=== PATIENT | male | born 1955 | race Caucasian/White ===

== ENCOUNTER 2021-06-06 10:33 | Emergency (ER) | payer OTHER, SELFPAY ==
[2021-06-06 10:53] VITALS: BP 209/114; PULSE 60; RESP 16; TEMP 36.3; O2SAT 99
--- NOTE | 2021-06-06 11:46 | ED.SKABFB ---
HPI - Skin/Abscess/Foreign Bdy General Chief complaint: Skin/Abscess/Foreign Body Stated complaint: Staple Removal Time Seen by Provider: 06/06/21 11:46 Source: patient Mode of arrival: ambulatory Limitations: no limitations History of Present Illness HPI narrative: Rony Ferrari is a 65-year-old male who is here for suture removal to the top of the head; he fell 11 days ago and needs the anne removed Related Data Home Medications Medication Instructions Recorded Confirmed atorvastatin 06/06/21 carvedilol 06/06/21 lisinopril 06/06/21 nifedipine PO 06/06/21 Allergies Allergy/AdvReac Type Severity Reaction Status Date / Time No Known Allergies Allergy Unverified 06/23/18 20:21 Review of Systems Review of Systems: CONSTITUTIONAL: Denies fever, chills, sweats. EYES: Denies visual changes, redness, discharge. ENT: Denies rhinorrhea, congestion, sore throat, otalgia. CARDIOVASCULAR: Denies chest pain, palpitations, edema. RESPIRATORY: Denies dyspnea, wheezing, cough GASTROINTESTINAL: Denies abdominal pain, nausea, vomiting, diarrhea. GENITOURINARY: Denies dysuria, hematuria, abnormal discharge SKIN: Denies rash or itching. Needs anne removed from top of head on right NEUROLOGIC: Denies numbness, or focal weakness. PSYCHIATRIC: Denies anxiety or depression. PMFSH Past Medical History Medical History CKD (chronic kidney disease) stage V requiring chronic dialysis Hypertension Family History Family History Mother Hypertension Social History Social History (Updated 06/06/21 @ 11:58 by Estefany Olvera CNP) Smoking packs per day: 1.0 Smoking cigarettes per day: 20.0 Smoking status: Current every day smoker Tobacco type: cigarettes Alcohol intake: former Comments At time of signature, I agree with nursing past medical, surgical, social and family history. There is no relevant family history pertinent to the presenting complaint. Exam Narrative: GENERAL: This is a well-nourished, well-developed patient, not in distress. HEAD: normocephalic, atraumatic. EYES:Sclera clear/white. Vision is grossly intact. EARS: External ears normal, Hearing grossly intact. NOSE: External nose normal without nasal discharge, nares without redness, no rhinorrhea. THROAT: Mucous membranes moist, NECK: Neck supple, CARDIOVASCULAR: Regular rate and rhythm without murmurs, gallops, or rubs. RESPIRATORY: Clear to auscultation. Breath sounds equal bilaterally. No wheezes, rales, or rhonchi. GASTROINTESTINAL: Abdomen soft, SKIN: warm, intact with bruising to bilateral arms, is doing peritoneal dialysis and has catheter in abdomen NEURO: awake, alert, and oriented to person, place and time. There were no obvious focal neurologic abnormalities. Steady gait EXTREMITIES: Normal range of motion. BACK: Nontender without deformity Course Course Emergency Course: Here for removal of sutures from head Laceration well approximated Follow-up with primary care physician for elevated blood pressure Vital Signs Vital signs: Vital Signs Temperature 97.4 F L 06/06/21 10:53 Pulse Rate 60 06/06/21 10:53 Respiratory Rate 16 06/06/21 10:53 Blood Pressure 209/114 H 06/06/21 10:53 Pulse Oximetry 99 06/06/21 10:53 Temperature 97.4 F L 06/06/21 10:53 Pulse Rate 60 06/06/21 10:53 Respiratory Rate 16 06/06/21 10:53 Blood Pressure 209/114 H 06/06/21 10:53 Pulse Oximetry 99 06/06/21 10:53 Procedures Other Procedure Procedure 1: Other Procedure: 3 anne removed from the right side of scalp, area well-healed and edges well approximated MDM - Skin/Abscess/Foreign Bdy Differential Diagnosis Differential diagnosis: Likely cellulitis and other (Well approximated healed laceration) Critical Care Time Critical Care Time Critical Care Time: No Discharge Plan Discharge
--- NOTE | 2021-06-06 11:57 | PC.NURSE ---
manual B/P left arm 168/92
== END 2021-06-06 12:25 | disposition home or self-care (01) ==
PROVIDERS: Emergency Provider Nurse Practitioner; PCP Family Medicine
DX: S01.01XD Laceration without foreign body of scalp, subsequent encounter (principal); W19.XXXD Unspecified fall, subsequent encounter
CPT/HCPCS: 99211; G0463

== ENCOUNTER 2022-01-15 01:12 | Day surgery (SDC) | payer OTHER, MEDICARE, SELFPAY ==
[2022-01-06 14:36] VITALS: BMI 23.1
[2022-01-15 09:39] VITALS: BP 175/77; PULSE 72; RESP 20; TEMP 36.6; O2SAT 100
[2022-01-15] MEDS: SODIUM CHLORIDE 0.9% IV 500 ML 150 ML IV CONT (09:49)
--- NOTE | 2022-01-15 09:52 | WPDANESEPPF ---
Anes - Initial Pre Proc Eval Procedure: Operation Date: 01/15/22 10:45 Proposed Procedures p Screening Colonoscopy - Sanjeev Dumont MD Date/Time: 01/15/22 09:52 Surgeon: Sanjeev Dumont MD Pre Op Diagnosis: neoplasm screening Patient Data Age: 66 Gender: M Height: 1.68 m Weight: 64.8 kg Last Vital Signs Temp 36.6 C 01/15/22 09:39 Pulse 72 01/15/22 09:39 Resp 20 01/15/22 09:39 BP 175/77 H 01/15/22 09:39 Pulse Ox 100 01/15/22 09:39 Allergies Allergy/AdvReac Type Severity Reaction Status Date / Time No Known Allergies Allergy Unverified 01/15/22 09:32 Home Medications Medication Instructions Recorded Confirmed Type atorvastatin 20 mg PO DAILY 06/06/21 01/06/22 History carvedilol 25 mg PO BID 06/06/21 01/06/22 History nifedipine 60 mg PO HS 06/06/21 01/06/22 History ascorbic acid (vitamin C) [Vitamin 250 mg PO DAILY 01/06/22 01/06/22 History C] aspirin [Adult Aspirin] 81 mg PO DAILY 01/06/22 01/06/22 History cholecalciferol (vitamin D3) 125 mcg PO DAILY 01/06/22 01/06/22 History [Vitamin D3] zinc 50 mg PO DAILY 01/06/22 01/06/22 History Patient hx anesthesia problems: none Family hx anesthesia problems: none Results Review: All pre-operative results and documents have been reviewed as part of the pre-operative evaluation. [facility] Past Medical History Medical History CKD (chronic kidney disease) stage V requiring chronic dialysis COPD (chronic obstructive pulmonary disease) Hypertension Tobacco abuse Family History Family History Mother Hypertension Social History Social History Smoking packs per day: 1.0 Smoking cigarettes per day: 20.0 Smoking status: Current every day smoker Tobacco type: cigarettes Alcohol intake: never Substance use: never Living arrangements: alone Spiritual care concerns: No Anes - Eval Final PreProcedure Day of Procedure 01/15/22 09:52 Patient weight: normal Heart: regular rate and rhythm Lungs: decreased breath sounds Airway: Mallampati scale class II Neurological: alert and oriented Last oral intake: >/= 8 hours ASA classification: IV Emergent: no Anesthetic plan: proceed Anesthesia type and monitoring: general GIVS and standard monitoring Results Review: All pre-operative results and documents have been reviewed as part of the pre-operative evaluation. Informed Consent: The patient's anesthetic plan and its attendant risks and benefits were discussed with the patient/family/POA. Questions were solicited and answers provided to the satisfaction of the patient/family/POA.
--- NOTE | 2022-01-15 10:48 | PM.HPGS ---
History of Present Illness History of Present Illness Consent: Risks, benefits, and alternatives have been discussed and questions answered. Patient agrees to proceed with procedure. Chief complaint: neoplasm screening Narrative: Rony Ferrari is a 66 year old male here for first screening colonoscopy Review of Systems Constitutional: Constitutional: Denies headache(s) and Denies weakness Eyes: Eyes: Denies blurry vision ENT: Reports Normal hearing present, Denies headache(s) and Denies neck pain Cardiovascular: Cardiovascular: Denies chest pain and Denies dyspnea Respiratory: Respiratory: Denies dyspnea Gastrointestinal: Gastrointestinal: Reports no additional gastrointestinal complaints Genitourinary: Genitourinary: Denies dysuria Musculoskeletal: Musculoskeletal: Denies neck pain Integumentary/Breasts: Skin/Breast: Denies dry skin Neurologic: Reports Normal hearing present, Denies headache(s) and Denies weakness Psychiatric: Psychiatric: Denies anxiety Endocrine: Endocrine: Denies change in body appearance Hematologic/Lymphatic: Hematologic/Lymphatic: Denies easy bleeding Allergic/Immunologic: Allergic/Immunologic: Denies urticaria [facility] Past Medical History Medical History (Updated 01/15/22 @ 10:49 by Sanjeev Dumont MD) CKD (chronic kidney disease) stage V requiring chronic dialysis Colon cancer screening COPD (chronic obstructive pulmonary disease) Hypertension Tobacco abuse Family History Family History Mother Hypertension Social History Social History Smoking packs per day: 1.0 Smoking cigarettes per day: 20.0 Smoking status: Current every day smoker Tobacco type: cigarettes Alcohol intake: never Substance use: never Living arrangements: alone Spiritual care concerns: No Meds Home Medications and Allergies Home Medications Medication Instructions Recorded Confirmed Type atorvastatin 20 mg PO DAILY 06/06/21 01/06/22 History carvedilol 25 mg PO BID 06/06/21 01/06/22 History nifedipine 60 mg PO HS 06/06/21 01/06/22 History ascorbic acid (vitamin C) [Vitamin 250 mg PO DAILY 01/06/22 01/06/22 History C] aspirin [Adult Aspirin] 81 mg PO DAILY 01/06/22 01/06/22 History cholecalciferol (vitamin D3) 125 mcg PO DAILY 01/06/22 01/06/22 History [Vitamin D3] zinc 50 mg PO DAILY 01/06/22 01/06/22 History Allergies Allergy/AdvReac Type Severity Reaction Status Date / Time No Known Allergies Allergy Unverified 01/15/22 09:32 Vital Signs Vital Signs - 24 hr 01/15/22 09:39 Temperature 97.8 F Pulse Rate 72 Respiratory Rate 20 Blood Pressure 175/77 H Pulse Oximetry 100 Exam Const: General: comfortable and no acute distress HENMT: General nose exam: Normal nares present Eyes: General: appearance normal, both eyes and all related structures Neck: Neck: no JVD Resp: Auscultation: clear to auscultation bilaterally Cardio: Rate: regular rate Rhythm: regular rhythm GI: Inspection: non-distended GI Palp: Yes Soft to palpation Skin: General skin exam: normal color Neuro: General: gait normal Speech: normal speech Extrem: General: normal to inspection Psych: Mental Status: mental status grossly normal Assessment and Plan Assessment and plan (1) Colon cancer screening: Code(s): Z12.11 - Encounter for screening for malignant neoplasm of colon Status: Acute Assessment and Plan: colonoscopy
[2022-01-15 11:18] VITALS: BP 85/53; PULSE 60; RESP 20; O2SAT 99
[2022-01-15 11:28] VITALS: BP 121/78; PULSE 66; RESP 21; O2SAT 97
[2022-01-15 11:38] VITALS: BP 157/85; PULSE 76; RESP 25; O2SAT 100
== END 2022-01-15 11:55 | disposition home or self-care (01) ==
PROVIDERS: Visit Provider Internal Medicine Gastroenterology
PROC: 0DJD8ZZ Inspection of Lower Intestinal Tract, Via Natural or Artificial Opening Endoscopic (ICD-10-PCS; CPT 45378; principal; 2022-01-15 10:45)
DX: Z12.11 Encounter for screening for malignant neoplasm of colon (principal); K63.5 Polyp of colon; D12.3 Benign neoplasm of transverse colon; I12.0 Hypertensive chronic kidney disease with stage 5 chronic kidney disease or end stage renal disease; Z99.2 Dependence on renal dialysis; N18.5 Chronic kidney disease, stage 5; J44.9 Chronic obstructive pulmonary disease, unspecified; K57.30 Diverticulosis of large intestine without perforation or abscess without bleeding; K64.8 Other hemorrhoids; F17.210 Nicotine dependence, cigarettes, uncomplicated
CPT/HCPCS: 45385; 88305; J2704; J7040

== ENCOUNTER 2022-08-14 10:18 | Inpatient (IN) | payer OTHER, MEDICARE, SELFPAY ==
[2022-08-14] VITALS (27 sets, daily range): BP systolic 117–242; BP diastolic 74–133; PULSE 90–126; RESP 13–32; TEMP 36.3–37; O2SAT 95–100; BMI 21.4
--- NOTE | ~2022-08-14 | US_ITS ---
EXAMINATION: US abdomen limited DATE: 08/21/2022 14:17 INDICATION: Abnormal liver function tests. TECHNIQUE: Multiple grayscale and Doppler ultrasound images of the abdomen were obtained. COMPARISON: CT 08/19/2022 FINDINGS: The pancreas is obscured by bowel gas. The liver is normal without focal lesion. There is n ormal flow in main portal vein. The gallbladder is normal in size. No gallstones. Gallbladder wall th ickening is seen, likely interstitial edema. There is no sonographic Ramos sign. The common duct is normal and measures 2 mm. There is a small volume of perihepatic ascites. IMPRESSION: 1. Small volume of perihepatic ascites. Reviewed, dictated and finalized at location A. TRIC FURNACE OPERATOR
--- NOTE | ~2022-08-14 | CT_ITS ---
EXAMINATION: CT brain wo con DATE: 08/16/2022 09:46 INDICATION: Right-sided flaccidity and weakness TECHNIQUE: Computed tomography (CT) of the head was performed without intravenous contrast. The mA wa s adjusted according to patient size. Iterative reconstruction technique was employed. Exam dose: 60 5.33 mGy-cm total exam DLP. COMPARISON: 08/2022 MR brain/brainstem 08/14/2022 CT brain FINDINGS: Bilateral vertebral artery, basilar artery and prominent bilateral carotid siphon and supra clinoid internal carotid artery calcifications. There is nonspecific diminished attenuation of the cerebral white matter, likely due to chronic small vessel ischemic changes. No intracranial mass lesion or hemorrhage or recent cerebrovascular accident is detected. CT is not s ensitive for detection of hyperacute cerebrovascular accident. No subdural or epidural hematoma is detected. There is moderate cerebral volume loss. No orbital mass lesion. Mild polypoid soft tissue thickening of the maxillary sinuses. There is mild patchy ethmoid sinus sof t tissue thickening and mild echograms thickening of the right sphenoid sinus. The mastoid air cells are normally developed and aerated. No fracture or bone destruction of the cranial vault. IMPRESSION: Cerebral atherosclerosis and chronic small vessel ischemic changes of the cerebral white matter No intracranial mass lesion or hemorrhage, midline shift or mass effect effect Moderate cerebral volume loss Reviewed, dictated and finalized at Location A. Reviewed, dictated and finalized at location A.
--- NOTE | ~2022-08-14 | CT_ITS ---
EXAMINATION: CT abdomen pelvis w con DATE: 08/14/2022 11:49 INDICATION: 5 days of abdominal pain TECHNIQUE: Computed tomography (CT) of the abdomen and pelvis was performed with 100 mL Omnipaque-350 intravenous contrast. Automated exposure control and iterative reconstruction technique were employe d. The dose-length product was 424.27 mGy-cm. COMPARISON: None FINDINGS: Mild elevation the left hemidiaphragm with left basilar compressive atelectasis. Heart size is normal . Atherosclerotic coronary artery calcification is. No pericardial or pleural effusion. Moderate amou nt of ascites scattered throughout the abdomen and pelvis which may be related to peritoneal dialysis with peritoneal dialysis catheter entering the abdominal wall slightly superior and to the right of the umbilicus and with distal tip coiled in the left lower quadrant. Liver, gallbladder, spleen, panc reas and bilateral adrenal glands are normal. Moderate to severe left renal atrophy. Mild atrophy and scattered cortical scarring at the right kidney. No bowel obstruction. Normal appendix. There is norm cified atherosclerosis of the aorta and many of the other arteries. Bladder is normal. Small fat-cont aining left inguinal hernia. No pathologically enlarged abdominal or pelvic lymphadenopathy. Mild tho racolumbar levocurvature with severe lumbar and lower thoracic spondylosis. IMPRESSION: 1. Small to moderate amount of ascites in the abdomen and pelvis likely related to peritoneal dialysi s. 2. No acute intra-abdominal/pelvic process. 3. Moderate to severe left and mild right renal atrophy. Reviewed, dictated and finalized at location B. IMPRESSION: 1. Small to moderate amount of ascites in the abdomen and pelvis likely related to peritoneal dialysis. 2. No acute intra-abdominal/pelvic process. 3. Moderate to severe left and mild right renal atrophy.
--- NOTE | ~2022-08-14 | CT_ITS ---
EXAMINATION: CT brain wo con DATE: 08/14/2022 11:47 INDICATION: Right hemiparesis. TECHNIQUE: Computed tomography (CT) of the head was performed without intravenous contrast. The mA wa s adjusted according to patient size. Iterative reconstruction technique was employed. The dose-lengt h product was 605.33 mGy-cm. COMPARISON: Head CT 06/23/2018, brain MRI 06/24/2018 FINDINGS: There are scattered areas of low attenuation in the cerebral white matter. There is an old lacunar infarct in right caudate nucleus. There is no intracranial hemorrhage, acute infarction, or a bnormal intracranial mass lesion. The ventricles are normal in size. There is mild mucosal thickening in the paranasal sinuses. The orbits are normal. The mastoid air cells are normal. IMPRESSION: 1. Old lacunar infarct in right caudate nucleus. 2. Stable moderate nonspecific cerebral white matter disease, which likely represents chronic small v essel ischemic disease. Reviewed, dictated and finalized at location A. IMPRESSION: 1. Old lacunar infarct in right caudate nucleus. 2. Stable moderate nonspecific cerebral white matter disease, which likely repr esents chronic small vessel ischemic disease.
--- NOTE | ~2022-08-14 | XR_ITS ---
XR chest 2V 08/14/2022 12:10 Indication: Weakness and dyspnea Procedure: 2 view chest Comparison: No prior studies for comparison. Findings: Bilateral lower lobe atelectasis. No pleural effusion. No pneumothorax. No acute osseous ab normality. Impression: 1: Bilateral lower lobe atelectasis. Shallow inspiration. Reviewed, dictated and finalized at location A. Impression: 1: Bilateral lower lobe atelectasis. Shallow inspiration.
--- NOTE | ~2022-08-14 | XR_ITS ---
EXAMINATION: XR chest 1V portable DATE: 08/20/2022 06:09 INDICATION: Respiratory failure. Severe sepsis. TECHNIQUE: frontal and lateral views of the chest were obtained. COMPARISON: Chest radiograph and CT dated 08/19/2022 FINDINGS: Endotracheal tube tip 2.1 cm above the shayy. Nasogastric tube tip in proximal side port in the body of the stomach. Right internal jugular central venous catheter with distal tip in the midsuperior ve na cava. Mild elevation of left hemidiaphragm. Opacities at the left lower lung zone with blunting of the left costophrenic angle which on CT appears more consistent with atelectasis than pneumonia. There is als o some mild right basilar atelectasis. No pneumothorax or pleural effusion. Heart size is normal. IMPRESSION: 1. Opacities in the bilateral lower lung zones, left greater than right and favor atelectasis over pn eumonia. Reviewed, dictated and finalized at location A. PART RASPER IMPRESSION: 1. Opacities in the bilateral lower lung zones, left greater than right and fav or atelectasis over pneumonia.
--- NOTE | ~2022-08-14 | XR_ITS ---
XR chest 1V portable DATE: 08/16/2022 06:24 INDICATION: Central line placement TECHNIQUE: Portable AP chest on at 0 5 mm COMPARISON: Portable AP chest on 08/16/2022 0405 hours FINDINGS: ET tube approximately 2 cm above shayy in satisfactory position. NG tube in gastric fundus . Introduction of right internal jugular central venous catheter, tip overlying superior vena cava. No pneumothorax. Patchy left lower lobe infiltrate and/atelectasis. There is mild infiltrate or atelectasis in the med ial right lung base. Persistent gaseous distention of small and large bowel. Osteopenia. IMPRESSION: Introduction of right internal jugular central venous catheter, tip overlying superior ve na cava; no pneumothorax Bilateral lower lobe infiltrate and/atelectasis, left greater than right Reviewed, dictated and finalized at location A. IMPRESSION: Introduction of right internal jugular central venous catheter, tip overlying superior vena cava; no pneumothorax Bilateral lower lobe infiltrate and/atelectasis, left greater than right
--- NOTE | ~2022-08-14 | XR_ITS ---
EXAMINATION: XR chest 1V portable DATE: 08/19/2022 06:15 INDICATION: Respiratory failure. Severe sepsis. TECHNIQUE: frontal view of the chest was obtained. COMPARISON: Chest radiograph dated 08/18/2022 FINDINGS: Endotracheal tube tip 2.1 cm above the shayy. Nasogastric tube coiled in the stomach. Right internal jugular central venous catheter tip in the midsuperior vena cava. Lung lungs remain small. Mild bibasilar opacities with interval improvement on the left. No pleural e ffusion or pneumothorax. The cardiomediastinal silhouette is normal. IMPRESSION: 1. Mild bibasilar opacities with interval improvement on the left which could represent atelectasis o r pneumonia Reviewed, dictated and finalized at location A. ING INSPECTOR IMPRESSION: 1. Mild bibasilar opacities with interval improvement on the left which could r epresent atelectasis or pneumonia
--- NOTE | ~2022-08-14 | CT_ITS ---
EXAMINATION: CT soft tissue neck wo con DATE: 08/15/2022 16:23 INDICATION: Possible thrombosis of the left carotid artery. TECHNIQUE: Computed tomography (CT) of the neck was performed with 75 mL Omnipaque-350 intravenous co ntrast. Automated exposure control and iterative reconstruction technique were employed. The dose-dayana gth product was 500.71 mGy-cm. COMPARISON: Cervical spine CT dated 08/14/2022 FINDINGS: There is extensive atherosclerotic calcification at the aortic arch, great vessels arising from the a rch and extending cephalad along the bilateral carotid arteries including at the carotid bulbs. Unabl e to assess for thrombosis/patency of the arteries on noncontrast imaging. The degree of calcificatio n at the bilateral carotid bulbs appears likely hemodynamically significant. Additional atherosclerot ic calcifications at the bilateral carotid siphons. The bilateral parotid, submandibular and thyroid gland appear normal. No pathologically enlarged cervical or superior mediastinal lymphadenopathy. Mil d dependent atelectasis in the bilateral upper lobes. Severe cervical spondylosis. Mucous retention c yst in the bilateral maxillary sinuses.. IMPRESSION: 1. Extensive atherosclerotic calcifications including potentially hemodynamically significant calcifi c a cyst at the bilateral carotid bulbs. Unable to assess for thrombosis or patency of the vessels in the absence of intravascular contrast. Consider correlation either with carotid CT angiogram or bernard tid ultrasound. Reviewed, dictated and finalized at location B. IMPRESSION: 1. Extensive atherosclerotic calcifications including potentially hemodynamical ly significant calcific a cyst at the bilateral carotid bulbs. Unable to assess for thrombosis or patency of the vessels in the absence of intravascular contr ast. Consider correlation either with carotid CT angiogram or carotid ultrasoun d.
--- NOTE | ~2022-08-14 | XR_ITS ---
EXAMINATION: XR chest 1V portable INDICATION: Respiratory failure TECHNIQUE: Portable AP chest at 0530 hours COMPARISON: 08/23/2022 FINDINGS: The endotracheal tube ends approximately 3.5 cm above the shayy. The nasogastric tube is i n the stomach. A left right internal jugular central venous catheter ends in the midsuperior vena cav a. Left basilar atelectasis continues to improve. No pleural effusion or pneumothorax. The cardiomedi astinal silhouette is normal. IMPRESSION: 1. Left basilar atelectasis with continued improvement. Reviewed, dictated and finalized at location A. Y STARCH MOLD PRINTER
--- NOTE | ~2022-08-14 | XR_ITS ---
XR chest 1V portable DATE: 08/16/2022 04:12 INDICATION: Reintubation TECHNIQUE: Portable AP chest on 08/16/2022 at 0405 hours COMPARISON: 08/16/2022 portable AP chest at 0115 hours FINDINGS: ET tube tip currently approximately 1 cm above shayy. NG tube in gastric fundus. Patchy left lower lobe infiltrate and/atelectasis. IMPRESSION: ET tube 1 cm above shayy; ideal range is to have a 5 cm NG tube in gastric fundus Left lower lobe infiltrate and/atelectasis Reviewed, dictated and finalized at location A.
--- NOTE | ~2022-08-14 | XR_ITS ---
EXAMINATION: XR abdomen NG/feed tube insert DATE: 08/20/2022 15:01 INDICATION: Nasogastric tube insertion. TECHNIQUE: A supine view of the abdomen was obtained. COMPARISON: Abdomen radiograph 08/16/2022 FINDINGS: The lower abdomen and right lateral aspect of the abdomen were excluded. The nasogastric tu be tip is in the stomach. IMPRESSION: 1. Nasogastric tube tip in the stomach. Reviewed, dictated and finalized at location A. ENDER MAKER
--- NOTE | ~2022-08-14 | XR_ITS ---
XR abdomen/kub 1V DATE: 08/16/2022 00:35 INDICATION: Abdominal distention TECHNIQUE: 2 portable supine AP views COMPARISON: 09/10/2022 CT abdomen pelvis FINDINGS: A peritoneal dialysis catheter is noted. Radiopaque contrast material is noted in the urinary bladder. There is extensive callus throughout the small and large bowel, without significant abnormal dilatati on.. Abdominal aortic and iliac arterial calcifications. Multilevel degenerative disc disease and mild levoscoliosis of the lumbar spine. Osteopenia. IMPRESSION: Extensive gas throughout the small and large bowel without apparent obstruction Peritoneal dialysis catheter Reviewed, dictated and finalized at Location A. Reviewed, dictated and finalized at location A.
--- NOTE | ~2022-08-14 | XR_ITS ---
EXAMINATION: XR chest 1V portable INDICATION: Respiratory failure TECHNIQUE: Portable AP chest at 0526 hours COMPARISON: 08/20/2022 FINDINGS: The endotracheal tube ends approximately 3.3 cm above the shayy. The nasogastric tube is i n the stomach. A right internal jugular central venous catheter ends with its tip in the superior latonya a cava. There is mild atelectasis of the left lung base with slight improvement. No pleural effusion or pneumothorax. The cardiomediastinal silhouette is normal. IMPRESSION: 1. Mild atelectasis of the left lung base with improvement. Reviewed, dictated and finalized at location B. CHILL TECHNICIAN
--- NOTE | ~2022-08-14 | XR_ITS ---
EXAMINATION: XR chest 1V portable DATE: 08/26/2022 05:50 INDICATION: Respiratory failure. TECHNIQUE: A single frontal view of the chest was obtained. COMPARISON: Chest single view 08/25/2022 FINDINGS: There is mild elevation of left hemidiaphragm. There are airspace opacities in the lower juan antonio ng zones. No pleural effusion or pneumothorax. The heart size is normal. The endotracheal tube tip is 7.0 cm above the shayy. The nasogastric tube tip is in the stomach. IMPRESSION: 1. Worsened airspace opacities in the lower lung zones, consistent with atelectasis versus pneumonia. Reviewed, dictated and finalized at location A. INSPECTOR IMPRESSION: 1. Worsened airspace opacities in the lower lung zones, consistent with atelect asis versus pneumonia.
--- NOTE | ~2022-08-14 | XR_ITS ---
EXAMINATION: XR chest 1V portable DATE: 08/25/2022 05:56 INDICATION: Respiratory failure. TECHNIQUE: A single frontal view of the chest was obtained. COMPARISON: Chest single view 08/24/2022, chest CT 08/24/2022 FINDINGS: There is mild atelectasis at left lung base. No pleural effusion or pneumothorax. The heart size is normal. The endotracheal tube tip is 3.7 cm above the shayy. A right internal jugular centr al venous catheter is seen with tip in the superior vena cava. The nasogastric tube tip is in the sto mach. IMPRESSION: 1. Mild atelectasis at left lung base. Reviewed, dictated and finalized at location A. UCTION SUPERINTENDENT HYDRO
--- NOTE | ~2022-08-14 | XR_ITS ---
XR chest 1V portable DATE: 08/16/2022 00:36 INDICATION: Unresponsive. Low oxygenation. Respiratory distress TECHNIQUE: Portable upright AP chest on 08/16/2022 at 0029 hours COMPARISON: 08/14/2022 2 view chest FINDINGS: Heart size appears normal. Aortic calcification and unfolding. Mild infiltrate or atelectasis in the left lower lobe. The lungs otherwise appear clear. No pleural e ffusion or pulmonary vascular congestion or pneumothorax. There is extensive gas in the small and large bowel. IMPRESSION: Mild left lower lobe infiltrate or atelectasis Reviewed, dictated and finalized at location A.
--- NOTE | ~2022-08-14 | MR_ITS ---
EXAMINATION: MR brain/brain stem wo con DATE: 08/15/2022 14:38 INDICATION: Right hemiparesis. TECHNIQUE: Magnetic resonance imaging (MRI) of the brain and brainstem was performed without intraven ous contrast. COMPARISON: Brain MRI 06/24/2018, head CT 08/14/2022 FINDINGS: There are scattered small acute infarcts involving the bilateral frontal and parietal lobes . There is no intracranial hemorrhage or abnormal mass lesion. There are scattered areas of nonspecif ic increased T2-weighted signal intensity in the cerebral white matter. The ventricles are normal in size. There is mild mucosal thickening in the paranasal sinuses. The orbits are normal. The mastoid a ir cells are normal. There is loss of the normal left internal carotid artery flow void. IMPRESSION: 1. Scattered small acute infarcts involving the bilateral frontal and parietal lobes. 2. Mild nonspecific cerebral white matter disease, which likely represents chronic small vessel ische rinku disease. 3. Loss of the normal flow void in the left internal carotid artery suggesting slow flow or thrombosi s. Consider neck CTA. Reviewed, dictated and finalized at location A. IMPRESSION: 1. Scattered small acute infarcts involving the bilateral frontal and parietal lobes. 2. Mild nonspecific cerebral white matter disease, which likely represents tax adjuster juliet small vessel ischemic disease. 3. Loss of the normal flow void in the left internal carotid artery suggesting slow flow or thrombosis. Consider neck CTA.
--- NOTE | ~2022-08-14 | XR_ITS ---
EXAMINATION: XR chest ET placement DATE: 08/20/2022 15:01 INDICATION: Endotracheal tube adjustment. TECHNIQUE: A single frontal view of the chest was obtained. COMPARISON: Chest single view at 5:26 AM, chest CT 08/19/2022 FINDINGS: There is mild atelectasis at left lung base. No pleural effusion or pneumothorax. The heart size is normal. The endotracheal tube tip is 1.7 cm above the shayy. A right internal jugular centr al venous catheter is seen with tip in the superior vena cava. The nasogastric tube tip is in the sto mach. IMPRESSION: 1. Mild atelectasis at left lung base. Reviewed, dictated and finalized at location A. ASS ANALYST
--- NOTE | ~2022-08-14 | XR_ITS ---
EXAMINATION: XR chest 1V portable INDICATION: Respiratory failure TECHNIQUE: Portable AP chest at 0534 hours COMPARISON: 08/22/2022 FINDINGS: The endotracheal tube has been advanced and now ends approximately 5.2 cm above the shayy. A nasogastric tube is in the stomach. A right internal jugular central venous catheter ends with its tip in the mid superior vena cava. There is persistent but improved atelectasis of the left lung bas e. No pleural effusion or pneumothorax. The cardiomediastinal silhouette is normal. IMPRESSION: 1. Improving left basilar atelectasis. 2. Endotracheal tube advanced. Reviewed, dictated and finalized at location A. T ANALYST
--- NOTE | ~2022-08-14 | XR_ITS ---
EXAMINATION: XR chest 1V portable INDICATION: Respiratory failure TECHNIQUE: Portable AP chest at 1005 hours COMPARISON: 08/21/2022 FINDINGS: The endotracheal tube ends approximately 8.9 cm above the shayy at the thoracic inlet. The nasogastric tube is in the stomach. A right internal jugular central venous catheter ends with its t ip in the superior vena cava. There is unchanged mild atelectasis of the left lung base. No pleural e ffusion or pneumothorax. The cardiomediastinal silhouette is normal. IMPRESSION: 1. Left basilar atelectasis without significant change. 2. Endotracheal tube now approximately 8.9 cm above the shayy at the thoracic inlet. Reviewed, dictated and finalized at location B. LINE OPERATOR
--- NOTE | ~2022-08-14 | CT_ITS ---
EXAMINATION: CT cervical spine wo con DATE: 08/14/2022 19:00 INDICATION: Right facial droop, right-sided weakness, left arm numbness TECHNIQUE: Computed tomography (CT) of the cervical spine was performed without intravenous contrast. Automated exposure control and iterative reconstruction technique were employed. Exam dose: 453.70 mGy-cm total exam DLP. COMPARISON: None FINDINGS: There is reversal of cervical curvature which may be due to muscle spasm and/or positioning . C1 and C2 are normally aligned and the odontoid process is intact. There is severe degenerative disc disease at C3-4, C4-5, C5-6 and C6-7. There is prominent uncovertebral joint spurring as well at C3-4 through C6-7. No fracture or dislocation or locked facet or prevertebral soft tissue swelling.. IMPRESSION: Reversal of cervical curvature Severe degenerative disc disease and prominent uncovertebral joint spurring at C3-4 through C6-7 Reviewed, dictated and finalized at [facility]. Reviewed, dictated and finalized at location A.
--- NOTE | ~2022-08-14 | XR_ITS ---
EXAMINATION: XR chest 1V portable DATE: 08/18/2022 05:59 INDICATION: Respiratory failure. Severe sepsis. TECHNIQUE: frontal view of the chest was obtained. COMPARISON: Chest radiograph dated 08/17/2022 FINDINGS: Endotracheal tube tip has advanced down millimeter to beyond the level of the shayy at the entrance to the right mainstem bronchus. Nasogastric tube tip in proximal side port in the body of the stomach . Right internal jugular central venous catheter with distal tip in the caudal superior vena cava. Mild streaky atelectasis at the right lung base. More dense opacities at the left lower lung zone whi ch could represent additional atelectasis, pneumonia and/or small left pleural effusion. No pneumotho rax or right-sided pleural effusion. Heart size is normal. Tiny metallic foreign body the soft tissue s at the left upper arm. IMPRESSION: 1. Endotracheal tube tip in the right mainstem bronchus a couple millimeter below the level of the ca sameer. Recommend withdrawal by 2 cm. Findings were discussed with Cesilia Messina, the nurse caring fo r the patient, at 7:30 AM. Persistent opacities in the bilateral lower lung zones, left greater than right which could represen t atelectasis and/or pneumonia possibly with associated small left pleural effusion. Reviewed, dictated and finalized at location A. E MAKER IMPRESSION: 1. Endotracheal tube tip in the right mainstem bronchus a couple millimeter bel ow the level of the shayy. Recommend withdrawal by 2 cm. Findings were discuss ed with Cesilia Messina, the nurse caring for the patient, at 7:30 AM. Persistent opacities in the bilateral lower lung zones, left greater than righ t which could represent atelectasis and/or pneumonia possibly with associated s mall left pleural effusion.
--- NOTE | ~2022-08-14 | CT_ITS ---
EXAMINATION: CT chest abdomen pelvis wo con DATE: 08/19/2022 09:09 INDICATION: Sepsis. TECHNIQUE: Computed tomography (CT) of the chest, abdomen, and pelvis was performed without intraveno us contrast. Automated exposure control and iterative reconstruction technique were employed. The dos e-length product was 457.92 mGy-cm. COMPARISON: CT abdomen and pelvis 08/14/2022 FINDINGS: CHEST CT: There is mild emphysema. There is mild dependent atelectasis in the lungs bilaterally. A calcified le ft lung nodule and calcified left hilar lymph nodes are consistent with old granulomas disc disease. No significant pleural effusion. The heart size is normal. There are coronary artery calcifications. No pericardial effusion. The nasogastric tube tip is in the stomach. The endotracheal tube tip is 6 m m above the shayy. There is severe thoracic spondylosis. ABDOMEN/PELVIS CT: The liver and spleen are normal. The gallbladder is normal in size and contains contrast. There is a 15 mm cystic lesion in the pancreas. The adrenal glands are normal. There is moderate atrophy of righ t kidney and severe atrophy of left kidney. There are vascular calcifications at the hilum of right k idney. There is calcified atherosclerosis of the aorta and many of the other arteries. A peritoneal d ialysis catheter is noted. There is a small volume of ascites. The bladder is decompressed by a Garner catheter. The prostate is mildly enlarged. There are multiple dilated loops of small bowel. There is oral contrast in distal small bowel and in colon. The appendix is normal. There are no pathologicall y enlarged lymph nodes. There is a left inguinal hernia containing fat. There is severe lumbar spondy losis. IMPRESSION: 1. Dilated small bowel without transition point, likely adynamic ileus. 2. Mild emphysema. 3. Endotracheal tube tip 6 mm above the shayy. 4. 15 mm cystic lesion in the pancreas. The differential diagnosis includes pseudocyst, intraductal p apillary mucinous neoplasm (IPMN), mucinous cystic neoplasm (MCN), serous cystadenoma, and neuroendoc rine tumor. Abdomen MRI without and with contrast is recommended in one year. 5. Small volume of ascites with peritoneal dialysis catheter. Reviewed, dictated and finalized at location A. ANDING OFFICER GARAGE IMPRESSION: 1. Dilated small bowel without transition point, likely adynamic ileus. 2. Mild emphysema. 3. Endotracheal tube tip 6 mm above the shayy. 4. 15 mm cystic lesion in the pancreas. The differential diagnosis includes pse udocyst, intraductal papillary mucinous neoplasm (IPMN), mucinous cystic neopla sm (MCN), serous cystadenoma, and neuroendocrine tumor. Abdomen MRI without and with contrast is recommended in one year. 5. Small volume of ascites with peritoneal dialysis catheter.
--- NOTE | ~2022-08-14 | CT_ITS ---
EXAMINATION: CT chest abdomen pelvis wo con DATE: 08/24/2022 11:58 INDICATION: Fever TECHNIQUE: Computed tomography (CT) of the chest, abdomen, and pelvis was performed without intraveno us contrast. Automated exposure control and iterative reconstruction technique were employed. Exam do se: 596.55 mGy-cm total exam DLP. COMPARISON: 08/24/2022 portable AP chest 08/21/2022 abdominal ultrasound Limited examination 08/19/2022 CT chest abdomen pelvis FINDINGS: CHEST CT: The ET tube approximately 5.5 cm above shayy. NG tube in gastric fundus. There is minimal dependent right lower lobe atelectasis and more prominent left basilar atelectasis a nd/or infiltrate in addition to elevation of the left diaphragm. There is mild emphysema. Heart size is within normal range. No pericardial or pleural effusion. There is prominent coronary artery, thoracic aortic and great vessel atherosclerotic calcification. N o thoracic aortic aneurysm. No hilar or mediastinal mass lesion or lymphadenopathy. ABDOMEN/PELVIS CT: There is minimal ascites, primarily perihepatic, right paracolic gutter and dependent pelvic in locat ion. The gallbladder is contracted, with diffuse nonspecific wall thickening. No bile duct or pancreatic d uct dilatation. No hepatic, splenic, pancreatic, adrenal or renal space-occupying mass lesion is evident on this limi anjel noncontrast examination. There is diffuse left renal atrophy. Extensive bilateral renal artery ca lcification. No urinary tract obstruction or hydroureteronephrosis. There is a Garner catheter within the urinary bladder. There is radiopaque contrast material within the urinary bladder on this noncont rast examination, possibly relating from 08/20/2022 CT brain carotid examination.. Prostate enlargement and calcification. Small fat-containing left inguinal hernia. There is extensive calcification of the abdominal aorta, celiac, superior mesenteric and inferior mes enteric as well as iliac and femoral arteries. No abdominal aortic aneurysm. No intraperitoneal or retroperitoneal or pelvic mass lesion or adenopathy is detected. Peritoneal dialysis catheter terminates in the left lower quadrant. Minimal colonic diverticulosis; no CT evidence of diverticulitis. There are some abnormal fluid level s: Unless the patient has had recent enemas. No bowel obstruction or intraperitoneal free air is dete cted. Severe degenerative disc disease at C5-6. Degenerative change of the thoracic and lumbar spine includ ing severe degenerative disc disease at L1-2, L2-3, L4-5 and L5-S1. No suspicious osteolytic or osteoblastic lesions are noted. IMPRESSION: Prominent left lower lobe basilar atelectasis and/or infiltrate; minimal dependent right lower lobe atelectasis Mild emphysema Extensive atherosclerosis Peritoneal dialysis catheter, minimal ascites Minimal diverticulosis of the colon; no evidence of diverticulitis Fluid levels in the colon which are abnormal unless the patient has been recent enemas. Consider coli tis, adynamic ileus Reviewed, dictated and finalized at [facility]. Reviewed, dictated and finalized at location A. FORCE MANAGER IMPRESSION: Prominent left lower lobe basilar atelectasis and/or infiltrate; m inimal dependent right lower lobe atelectasis Mild emphysema Extensive atherosclerosis Peritoneal dialysis catheter, minimal ascites Minimal diverticulosis of the colon; no evidence of diverticulitis Fluid levels in the colon which are abnormal unless the patient has been recent enemas. Consider colitis, adynamic ileus
--- NOTE | ~2022-08-14 | XR_ITS ---
XR chest 1V portable DATE: 08/16/2022 01:26 INDICATION: Intubation and NG tube placement TECHNIQUE: Portable upright AP view on 08/16/2022 at 0115 hours COMPARISON: 08/16/2022 portable AP chest at 0029 hours FINDINGS: ET tube in right mainstem bronchus. NG tube in gastric fundus. Left lower lobe infiltrate and/atelectasis. Heart size appears within normal range. Is aortic calcification and unfolding. Osteopenia. There is extensive gaseous distention of small and large bowel. IMPRESSION: ET tube in right mainstem bronchus NG tube in gastric fundus Left lower lobe infiltrate and/or atelectasis Reviewed, dictated and finalized at location A.
--- NOTE | ~2022-08-14 | XR_ITS ---
XR chest 1V portable DATE: 08/17/2022 06:29 INDICATION: Respiratory failure, severe sepsis TECHNIQUE: Portable AP chest on 08/17/2022 2522 hours COMPARISON: Portable AP chest on 08/16/2022 at 0511 hours FINDINGS: ET tube tip is approximately 1 cm above shayy; ideal range is 2 5 cm. An NG tube is in gas tric fundus. Right internal jugular central venous catheter tip overlies superior vena cava. No pneumothorax. There are bilateral lower lung infiltrates and/atelectasis, particularly prominent in the left lower lobe. There is pulmonary vascular congestion and redistribution. Prominent aortic calcification. Borderline heart size. IMPRESSION: Pulmonary vascular congestion Bilateral lower lung infiltrate and/or atelectasis, greater on the left The congestive changes and infiltrates are increased since 08/16/2022 ET tube 1 cm above shayy; ideal range is 2 x 5 cm Reviewed, dictated and finalized at location A. E TECHNICIAN
--- NOTE | ~2022-08-14 | US_ITS ---
EXAMINATION: US carotid duplex BI DATE: 08/15/2022 16:59 INDICATION: Acute stroke and slow flow versus occlusion of the intracranial left internal carotid art glenn. TECHNIQUE: Grayscale, color Doppler, and pulsed Doppler images of the cervical carotid arteries were obtained. The degree of vessel stenosis is placed in one of the following categories: normal, <50%, 5 0-69%, >=70% but less than near-occlusion, near-occlusion, or total occlusion. Note that percent sten osis relative to normal distal artery lumen diameter is indirectly measured from velocity measurement s as described by Mark, et al. Radiology 2003; [id number]:[id number]. COMPARISON: 06/24/2018 FINDINGS: RIGHT: The right common carotid artery (CCA) peak systolic velocity (PSV) is 75 cm/s. There is extensive ath erosclerotic plaque along the right common carotid artery which on transverse grayscale imaging of th e right common carotid artery appears to result in an approximately 60% stenosis. There is broadening of the more downstream systolic peaks in the mid to distal right common carotid and right internal c arotid arteries. The right internal carotid artery (ICA) PSV is 93 cm/s. The right ICA end-diastolic velocity (EDV) is 68 cm/s. The right ICA/CCA PSV ratio is 1.2. Grayscale and color Doppler images yie ld an estimate of <50% diameter reduction from plaque in the ICA. The external carotid artery (ECA) P SV is 210 cm/s. Small vessel with slow antegrade flow without a clearly defined regular arterial wave form in the expected region of the right vertebral artery. Review of prior MRI demonstrates an absent flow void in the right vertebral artery which could be due to either slow flow or occlusion. LEFT: The left CCA PSV is 93 cm/s. Additional prominent atherosclerotic plaque at the left common carotid a rtery with up to 35 % stenosis on transverse grayscale imaging of the left common carotid artery. The left ICA is thrombosed with no evident flow on color Doppler. The ECA PSV is 349 cm/s. There is ante grade flow in the left vertebral artery. IMPRESSION: 1. 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 2. <50% stenosis in the right internal carotid artery. 3. Approximately 60% stenosis on grayscale imaging at the more proximal right common carotid artery w ith broadening of the more downstream systolic peaks in the more distal right common carotid and inte rnal carotid arteries. 4. Suggestion of either slow flow or potentially occlusion of the right vertebral artery. For this an d the above findings would consider contrast-enhanced carotid CT angiogram for more definitive determ ination. Reviewed, dictated and finalized at location B. IMPRESSION: 1. 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 2. <50% stenosis in the right internal carotid artery. 3. Approximately 60% stenosis on grayscale imaging at the more proximal right c ommon carotid artery with broadening of the more downstream systolic peaks in t he more distal right common carotid and internal carotid arteries. 4. Suggestion of either slow flow or potentially occlusion of the right vertebr al artery. For this and the above findings would consider contrast-enhanced car otid CT angiogram for more definitive determination.
--- NOTE | ~2022-08-14 | CT_ITS ---
EXAMINATION: CT sinus wo con DATE: 08/24/2022 11:58 INDICATION: Fever TECHNIQUE: Computed tomography (CT) of the paranasal sinuses was performed without contrast. Iterativ e reconstruction technique was employed. Exam dose: 300.40 mGy-cm total exam DLP. COMPARISON: None FINDINGS: There is leftward bowing of nasal septum. Cassie bullosa of right middle nasal turbinate. The ostiomeatal units are patent bilaterally. There is a mucous retention cyst or polyp in the inferomedial aspect of each maxillary sinus. Minimal focal mucoperiosteal thickening of each frontal sinus and the maxillary sinuses. Mild mucosal perios teal thickening of the right sphenoid sinus. The ethmoid air cells are unremarkable. The mastoid air cells are well-developed and aerated bilaterally. Middle and inner ear apparatus appe ar unremarkable bilaterally. IMPRESSION: Leftward bowing of nasal septum Cassie bullosa of right middle nasal turbinate Mucous retention cyst or polyp in the inferomedial aspect of each maxillary sinus Mild mucoperiosteal thickening of the maxillary sinuses, right sphenoid sinus and to lesser extent fr ontal sinuses Patent ostiomeatal units and mastoid air cells Reviewed, dictated and finalized at [facility]. Reviewed, dictated and finalized at location A. AL MEDIA SR STRATEGY MANAGER IMPRESSION: Leftward bowing of nasal septum Cassie bullosa of right middle nasal turbinate Mucous retention cyst or polyp in the inferomedial aspect of each maxillary sin us Mild mucoperiosteal thickening of the maxillary sinuses, right sphenoid sinus a nd to lesser extent frontal sinuses Patent ostiomeatal units and mastoid air cells
--- NOTE | ~2022-08-14 | CT_ITS ---
EXAMINATION: CT brain wo con DATE: 08/14/2022 19:00 INDICATION: Right facial droop. Right-sided weakness. TECHNIQUE: Computed tomography (CT) of the head was performed without intravenous contrast. The mA wa s adjusted according to patient size. Iterative reconstruction technique was employed. Exam dose: 60 5.33 mGy-cm total exam DLP. COMPARISON: 06/23/2018 CT brain 08/31/2022 CT brain on 1136 hours FINDINGS: Bilateral vertebral artery and prominent bilateral carotid siphon internal carotid artery c alcifications is nonspecific diminished attenuation cerebral white matter, likely due to chronic smal l vessel ischemic changes. . No intracranial mass lesion or hemorrhage or cerebrovascular accident is detected. No midline shift or mass effect. No subdural or epidural hematoma. No orbital mass lesion. The no fracture or bone destruction of the cranial vault. Included paranasal sinuses and mastoid air cells are unremarkable. There IMPRESSION: Cerebral atherosclerosis. And chronic small vessel ischemic changes of cerebral white ma tter No acute intracranial finding or significant change since earlier today Reviewed, dictated and finalized at [facility]. Reviewed, dictated and finalized at location A. IMPRESSION: Cerebral atherosclerosis. And chronic small vessel ischemic change s of cerebral white matter No acute intracranial finding or significant change since earlier today
--- NOTE | ~2022-08-14 | CT_ITS ---
EXAMINATION: CTA brain carotid DATE: 08/20/2022 11:52 INDICATION: Cerebrovascular accident. TECHNIQUE: Computed tomographic angiography (CTA) of the head was performed without and with 100 mL O [id number] intravenous contrast. CTA of the neck was performed with intravenous contrast. Automated exposure control and iterative reconstruction technique were employed. The dose-length product was 1 690.74 mGy-cm. Maximum intensity projection and volume rendered 3D-reconstructions were created by amna huynh technologist on a separate workstation. COMPARISON: Head CT 08/16/2022, brain MRI 08/15/2022 FINDINGS: HEAD CTA: There is an old lacunar infarct in right caudate nucleus. There are acute infarcts in the r ight parietal lobe and left frontal and parietal lobes. There are scattered areas of low attenuation in the cerebral white matter. There is no intracranial hemorrhage or abnormal mass lesion. The ventri cles are normal in size. There is mucosal thickening in the paranasal sinuses. The mastoid air cells are normal. The orbits are normal. Left vertebral artery is dominant. There is no significant stenosi s of basilar artery or the posterior cerebral arteries. There is total occlusion of cervical left int ernal carotid artery with supraclinoid reconstitution. There is no significant stenosis of the anteri or cerebral arteries or middle cerebral arteries. Anterior communicating artery is normal. The tool tender ior communicating arteries are normal. There is no aneurysm. There is extensive dental disease. NECK CTA: There is mild emphysema. The endotracheal tube tip is at the shayy. Calcified mediastinal lymph nodes are consistent with old granulomatous disease. There is no significant stenosis of the ve rtebral arteries. There is moderate stenosis of right common carotid artery. There is plaque in the i nternal proximal internal carotid arteries. There is 19% stenosis of the proximal right internal bernard tid artery relative to normal distal artery lumen diameter (NASCET criteria). There is total occlusio n of cervical left internal carotid artery. There is moderate stenosis of proximal and distal left co mmon carotid artery. There is moderate stenosis of proximal left subclavian artery. There is severe c ervical spondylosis. IMPRESSION: 1. Acute infarcts in the right parietal lobe and left frontal and parietal lobes. 2. Old lacunar infarct in right caudate nucleus. 3. Mild nonspecific cerebral white matter disease, which likely represents chronic small vessel ische rinku disease. 4. 19% stenosis of the proximal right internal carotid artery relative to normal distal artery lumen diameter (NASCET criteria). 5. 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 6. Moderate stenosis of the bilateral common carotid arteries. 7. Moderate stenosis of proximal left subclavian artery, which may cause subclavian steal. 8. Endotracheal tube tip at the shayy. Retraction is recommended. Reviewed, dictated and finalized at location A. TIONAL EXAMINER IMPRESSION: 1. Acute infarcts in the right parietal lobe and left frontal and parietal lobe s. 2. Old lacunar infarct in right caudate nucleus. 3. Mild nonspecific cerebral white matter disease, which likely represents revenue cycle administrator juliet small vessel ischemic disease. 4. 19% stenosis of the proximal right internal carotid artery relative to benita l distal artery lumen diameter (NASCET criteria). 5. 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 6. Moderate stenosis of the bilateral common carotid arteries. 7. Moderate stenosis of proximal left subclavian artery, which may cause subcla vian steal. 8. Endotracheal tube tip at the shayy. Retraction is recommended.
--- NOTE | 2022-08-14 10:36 | ED.ABDPAIN ---
HPI - Abdominal Pain General Chief Complaint: Abdominal Pain Stated Complaint: ABD Pain from Lifting Time Seen by Provider: 08/14/22 10:36 Source: patient Mode of arrival: ambulatory Limitations: no limitations History of Present Illness HPI narrative: Patient is a 67-year-old male with a history of COPD, chronic kidney disease on peritoneal dialysis, hypertension, presenting to the emergency department for evaluation of abdominal pain. Patient reports he has had abdominal pain worsening over the past week. Patient reports mild abdominal distention. He reports tenderness throughout. He denies flank pain. He denies fever, chills, nausea or vomiting. Patient also reports intermittent right arm weakness that he initially noticed at 9 AM this morning and lasted for approximately 20 minutes before resolving. Patient denies any facial numbness or weakness. He denies any facial droop or difficulty with speech. He denies any lower extremity weakness or numbness. Patient denies history of CVA. He states he takes a daily aspirin but denies any other antiplatelet or anticoagulation. Related Data Home Medications Medication Instructions Recorded Confirmed atorvastatin 20 mg tablet 20 mg PO DAILY 06/06/21 08/14/22 ascorbic acid (vitamin C) 500 mg 250 mg PO DAILY 01/06/22 08/14/22 tablet (Vitamin C) aspirin 81 mg chewable tablet 81 mg PO DAILY 01/06/22 08/14/22 cholecalciferol (vitamin D3) 125 125 mcg PO DAILY 01/06/22 08/14/22 mcg (5,000 unit) tablet (Vitamin D3) zinc 50 mg tablet 50 mg PO DAILY 01/06/22 08/14/22 bupropion HCl 150 mg 24 hr tablet, 300 mg PO DAILY 08/14/22 08/14/22 extended release cyanocobalamin (vitamin B-12) 500 mcg PO DAILY 08/14/22 08/14/22 Allergies Allergy/AdvReac Type Severity Reaction Status Date / Time No Known Allergies Allergy Unverified 08/14/22 10:44 Review of Systems Review of Systems: CONSTITUTIONAL: Denies fever, chills, or sweats. EYES: Denies visual changes, redness, or discharge. ENT: Denies rhinorrhea, congestion, sore throat, or otalgia. CARDIOVASCULAR: Denies chest pain, palpitations, or edema. RESPIRATORY: Denies cough or dyspnea. GASTROINTESTINAL: Reports abdominal pain without nausea, vomiting or diarrhea GENITOURINARY: Denies dysuria or hematuria. SKIN: Denies rash or itching. MUSCULOSKELETAL: Denies back pain, joint pain, or myalgia. NEUROLOGIC: Denies headache, reports right arm numbness which is now resolved [facility] Past Medical History Medical History (Updated 08/14/22 @ 18:44 by Jennifer Gomez MD) CKD (chronic kidney disease) stage V requiring chronic dialysis Colon cancer screening COPD (chronic obstructive pulmonary disease) End stage renal disease Erythropoietin deficiency anemia Hypertension WILMER (renal osteodystrophy) Tobacco abuse Family History Family History (Updated 08/14/22 @ 14:04 by Ho Mckay, RN) Mother Hypertension Cerebrovascular accident Father Lung cancer Sibling Myocardial infarct Social History Social History (Updated 08/14/22 @ 14:04 by Ho Mckay, RN) Smoking packs per day: 0.25 Smoking cigarettes per day: 5.0 Years smoked: 50 Smoking pack-years: 12.50 Smoking status: Current every day smoker Alcohol intake: never Substance use: never Has the Lack of Transportation Kept You From Medical Appointments or From Getting Medications?: No Within the Past 12 Months, Were You Worried Whether Your Food Would Run Out Before You Got Money to Buy More?: Never True What is Your Housing Situation Today?: I Have Housing Are You Worried That in the Next 2 Months, You May Not Have Your Own Housing to Live In?: No Do You Have Trouble Paying Your Heating Or Electricity Bill?: No Do You Have Trouble Paying For Medicines?: No Are You Currently Unemployed and Looking for Work?: No Highest Level of Education Completed: Grade School Do You Have Trouble With Childcare or the Care of a Family Member?:
[2022-08-14 10:42] LABS: Glucose Point of Care 165 mg/dl (65-105)
[2022-08-14 10:54] LABS: Basophils Absolute Auto 0.1 K/mm3 (0.0-0.1); Basophils Percent Auto 0.4 % (0.2-1.2); Eosinophils Absolute Auto 0.2 K/mm3 (0-0.3); Eosinophils Percent Auto 0.9 % (0-4.4); Hematocrit 45.8 % (42.0-52.0); Hemoglobin 14.9 g/dL (14.0-18.0); Lymphocytes Absolute Auto 1.62 K/mm3 (0.9-3.2); Mean Corpuscular HGB Conc 32.5 g/dl (32-36); Mean Corpuscular Hemoglobin 30.7 pg (26-34); Mean Corpuscular Volume 94.4 fl (80-100); Mean Platelet Volume 9.5 fl (7.4-10.4); Monocytes Absolute Auto 0.8 K/mm3 (0.1-0.6); Monocytes Percent Auto 3.8 % (2.6-8.5); Neutrophils Absolute Auto 17.5 K/mm3 (1.3-6.7); Neutrophils Percent Auto 85.9 % (45.5-73.1); Platelet Count Result 345 k/mm3 (150-375); Red Blood Count 4.85 M/mm3 (4.6-6.20); Red Cell Distribution Width 13.2 % (11.5-14.5); White Blood Count 20.3 K/mm3 (4.5-10.0)
--- NOTE | 2022-08-14 11:05 | ECG_ITS ---
Measurements Intervals [place] Rate: 101 P: 44 NH: 134 QRS: 30 QRSD: 94 T: 6 QT: 339 QTc: 440 Interpretive Statements SINUS TACHYCARDIA LEFT ATRIAL ENLARGEMENT DELAYED PRECORDIAL R/S TRANSITION POSSIBLE LEFT VENTRICULAR HYPERTROPHY NONSPECIFIC ST & T-WAVE ABNORMALITY- INFERIOR LEADS BORDERLINE ECG NO PREVIOUS ECG AVAILABLE FOR COMPARISON Electronically Signed On 08-14-2022 11:06:57 CDT by Syed Patino D.O.
[2022-08-14 11:08] LABS: Alanine Aminotransferase 18 U/L (6-50); Albumin Level 3.5 g/dL (3.5-5.1); Alkaline Phosphatase 175 U/L (38-126); Anion Gap 8 mmol/L (8-16); Aspartate Amino Transferase 22 U/L (17-59); Bilirubin,Total 0.6 mg/dL (0.2-1.3); Blood Urea Nitrogen 20 mg/dL (9-20); Calcium 8.4 mg/dL (8.4-10.2); Carbon Dioxide 31 mmol/L (22-30); Chloride 95 mmol/L (98-107); Estimated CRCL calculation 13 ml/min; Estimated Glomerular Filt Rate 14; Glucose 154 mg/dL (65-110); Lipase 27 U/L (23-300); Sodium 134 mmol/L (137-145)
[2022-08-14] MEDS: ONDANSETRON INJ 4 MG/2 ML VIAL IV PUSH ×2 (11:13→18:27)
[2022-08-14] MEDS: SODIUM CHLORIDE 0.9% IV 1,000 ML 999 ML IV CONT (11:13)
[2022-08-14] MEDS: MORPHINE SULFATE (*CRX) 4 MG/ML INJ 2 MG IV PUSH (11:14)
[2022-08-14 11:28] LABS: Lactic Acid Reflex 2.2 mmol/L (0.7-2.0)
[2022-08-14 11:34] LABS: INR 1.2; Prothrombin Time 14.5 Seconds (11.1-14.7)
[2022-08-14 11:35] LABS: Partial Thromboplastin Time 43.5 SECONDS (22.3-36.8)
--- NOTE | 2022-08-14 11:36 | PC.NURSE ---
Patient off unit to CT.
--- NOTE | 2022-08-14 11:48 | PC.NURSE ---
[facility] call-center contacted for assistance with collection of peritoneal dialysis fluid. Awaiting return phone call.
[2022-08-14 11:54] LABS: Troponin I 0.066 ng/mL (0.000-0.034)
--- NOTE | 2022-08-14 11:54 | PC.NURSE ---
educational psychologist to come in to collect peritoneal dialysis fluid sample.
[2022-08-14 12:06] LABS: SARS-CoV-2 RNA PCR Negative
[2022-08-14 12:17] LABS: Magnesium 1.9 mg/dL (1.6-2.3); Phosphorus 3.2 mg/dL (2.5-4.5)
--- NOTE | 2022-08-14 12:50 | PC.NURSE ---
Patient reports that he only produces a small amount of urine and is unable to provide a urine sample
[2022-08-14] MEDS: hydrALAZINE HCL 20 MG/ML VIAL IV PUSH (13:04)
--- NOTE | 2022-08-14 13:06 | PM.CNNEP ---
Assessment and Plan Assessment and plan (1) End stage renal disease: Code(s): N18.6 - End stage renal disease Status: Acute Assessment and Plan: the patient has end-stage renal disease. He is on peritoneal dialysis. He has been on this for about 3 years. He has never had a peritonitis episode. The patient has peritonitis. She got a cloudy bag in abdominal discomfort. He does not look like he is systemically septic however. Will give him intraperitoneal antibiotics. (2) Erythropoietin deficiency anemia: Code(s): D63.1 - Anemia in chronic kidney disease Status: Acute Assessment and Plan: His hemoglobin is good right now. Perhaps he is dehydrated. He certainly does not need EPO. (3) WILMER (renal osteodystrophy): Code(s): N25.0 - Renal osteodystrophy Status: Acute Assessment and Plan: Will check a phosphorus level in the morning (4) Tobacco abuse: Code(s): Z72.0 - Tobacco use Status: Acute Assessment and Plan: he is encouraged to quit. (5) Hypertension: Code(s): I10 - Essential (primary) hypertension Status: Acute Assessment and Plan: Blood pressure is extremely high. At home his blood pressure is very high as well running between 160 and 200. He is in a lot of pain which might be why it is higher than usual. He is getting hydralazine IV. He got this just the other day. Will start him on nifedipine and lisinopril If the p.r.n. meds do not work then consider nicardipine? He is going to the ICU for further management. (6) COPD (chronic obstructive pulmonary disease): Code(s): J44.9 - Chronic obstructive pulmonary disease, unspecified Status: Acute Assessment and Plan: the patient has COPD, likely from cigarette use. History of Present Illness Reason for Consult Consult date: 08/14/22 Chief Complaint Chief complaint: ABD Pain from Lifting History of Present Illness Narrative: Rony is a very pleasant 67-year-old gentleman who has multiple medical problems including severe hypertension, end-stage renal disease on peritoneal dialysis for about the last [address] Saurabh gregg, hyperlipidemia, anemia of chronic kidney disease, renal osteodystrophy. The patient says he was well until about 3 days ago when he started developing abdominal pain. This was diffuse. It was gradually worse over the last 3 days. When he does his peritoneal dialysis he empties the tube into the toilet so does not really check for clarity. He does look at the cassette can see the fluid to some degree but never looked very cloudy to him. He said he was sweaty this morning but otherwise does not think his been running a fever. He does check his temperature artery morning when he comes off the machine. He called his dialysis nurse this morning who told him to come over to the clinic but because he was in so much pain he decided to come to the ER. The patient does not have any nausea or vomiting. No diarrhea. He does not think that there was a lapse in technique he says. Nobody walked into the room and the furnace did not kick on while he was disconnected. He did not drop his set. He can not think the way it might have been contaminated. He has never had peritonitis before. The dialysis nurse came down and took a sample of fluid for culture and cell count. It is visibly cloudy. The patient's blood pressure is very high. He was just given a dose of hydralazine IV a few minutes ago. The patient says his blood pressure generally runs between 160 and 190. He is on multiple blood pressure pills but his blood pressure is almost never under good control. He does try extra fluid removal on dialysis to see if that will help but it never does. He has never had a stroke or heart attack. Review of Systems Constitutional: Constitutional: Reports no additional constitutional complaints Eyes: Eyes: Reports
--- NOTE | 2022-08-14 13:19 | PM.EVENT ---
Event Note Event Note Event Note: On peritoneal dialysis and tolerating it well. He was seen at 12:30 p.m.
--- NOTE | 2022-08-14 14:05 | ADMGEN ---
This patient, Rony Ferrari, was admitted to IMU Room 213-01. Patient/family oriented to hospital policies and general routines including ID bracelet, bed and alarms, visiting hours, pain management, procedures, bathroom and other care routines, personal items, smoking policy, room service/diet, and visiting hours. Information on how to activate the Rapid Response Team has been discussed. Patient/Family are encouraged to report perceived risks to care and to ask questions if they do not understand what they are told or what they should do.
[2022-08-14 14:07] LABS: Appearance Peritoneal Fluid Hazy (Clear); Color Peritoneal Fluid Colorless (Colorless); Nucleated Cells Peritoneal Flu 2679 /uL (0-500); RBC Peritoneal Fluid 55 /uL (0-100000); Source Peritoneal Fluid Peritoneal Fluid
[2022-08-14 14:09] LABS: Reflex Lactic Acid Yes or No Add Lactic
[2022-08-14 14:09] LABS: Eosinophils Peritoneal Fluid 4 %; Mesothelial Cells Peritoneal Fluid 4 %; Monocytes Peritoneal Fluid 2 %; Neutrophils Peritoneal Fluid 90 % (0-25)
[2022-08-14 14:55] LABS: Lactic Acid 1.1 mmol/L (0.7-2.0)
[2022-08-14] MEDS: HYDROcodone/acetaminophen (*CRX) 5-325 MG TABLET 1 TAB PO (15:04)
[2022-08-14] MEDS: hydrALAZINE HCL 20 MG/ML VIAL 10 MG IV PUSH (15:04)
[2022-08-14 15:15] LABS: Troponin I 0.077 ng/mL (0.000-0.034)
--- NOTE | 2022-08-14 15:49 | WPDNEURCNPN ---
Consult date: 08/14/22 Reason for consult: stroke HPI: Rony Ferrari is a 67 year old male admitted to the hospital through the emergency room on August 14, 2022 for the complaints of abdominal pain in addition to the ongoing history of 1. COPD 2. Chronic kidney disease for which patient is on peritoneal dialysis 3. Hypertension 4. 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 in addition to moderate nonspecific white matter disease, small to moderate amount of ascites in the abdomen pelvis on abdomen and pelvic CT scan, bilateral lower lobe atelectasis on chest x-ray, EKG without any atrial fibrillation but rate of 101, patient has been seen by the route sales delivery driver and as per their notes he has never had peritonitis before now his peritonitis with abdominal discomfort and cloudy back and has been given intra peritoneal antibiotics additionally as renal osteodystrophy has been started on nifedipine and lisinopril in addition to Ceftin as the dime 1 g in peritoneal dialysis and vancomycin 1000 mg IV piggyback Review of Systems Review of Systems: All systems reviewed & are unremarkable except as noted in HPI and below PMFSH Past Medical History Medical History (Updated 08/14/22 @ 13:14 by Alcides Sesay MD) CKD (chronic kidney disease) stage V requiring chronic dialysis Colon cancer screening COPD (chronic obstructive pulmonary disease) End stage renal disease Erythropoietin deficiency anemia Hypertension WILMER (renal osteodystrophy) Tobacco abuse Family History Family History (Updated 08/14/22 @ 14:04 by Ho Mckay RN) Mother Hypertension Cerebrovascular accident Father Lung cancer Sibling Myocardial infarct Social History Social History (Updated 08/14/22 @ 14:04 by Ho Mckay RN) Smoking packs per day: 0.25 Smoking cigarettes per day: 5.0 Years smoked: 50 Smoking pack-years: 12.50 Smoking status: Current every day smoker Alcohol intake: never Substance use: never Has the Lack of Transportation Kept You From Medical Appointments or From Getting Medications?: No Within the Past 12 Months, Were You Worried Whether Your Food Would Run Out Before You Got Money to Buy More?: Never True What is Your Housing Situation Today?: I Have Housing Are You Worried That in the Next 2 Months, You May Not Have Your Own Housing to Live In?: No Do You Have Trouble Paying Your Heating Or Electricity Bill?: No Do You Have Trouble Paying For Medicines?: No Are You Currently Unemployed and Looking for Work?: No Highest Level of Education Completed: Grade School Do You Have Trouble With Childcare or the Care of a Family Member?: No Living arrangements: alone Occupation/Education: occupation Gender identity (if verbalized by the patient): Male Sexual Orientation (if Verbalized by the Patient): Straight or Heterosexual Spiritual care concerns: No Agree to blood products: Yes Meds Home Medications and Allergies Home Medications Medication Instructions Recorded Confirmed Type atorvastatin 20 mg tablet 20 mg PO DAILY 06/06/21 01/06/22 History ascorbic acid (vitamin C) 500 mg 250 mg PO DAILY 01/06/22 01/06/22 History tablet (Vitamin C) aspirin 81 mg chewable tablet 81 mg PO DAILY 01/06/22 01/06/22 History cholecalciferol (vitamin D3) 125 125 mcg PO DAILY 01/06/22 01/06/22 History mcg (5,000 unit) tablet (Vitamin D3) zinc 50 mg tablet 50 mg PO DAILY 01/06/22 01/06/22 History Allergies Allergy/AdvReac Type Severity Reaction Status Date / Time No Known Al
[2022-08-14] MEDS: lisinopriL 20 MG TABLET 40 MG PO (16:19)
[2022-08-14] MEDS: NIFEdipine 30 MG TAB.ER.24 PO (16:19)
--- NOTE | 2022-08-14 17:07 | PM.IMHP ---
H&P: HPI History of Present Illness Date/Time: 08/14/22 17:07 Chief Complaint: Abdominal pain Narrative: This is a 67-year-old male patient who has end-stage renal disease and performs peritoneal dialysis nightly per self. The patient came to the emergency room with complaints of abdominal distention and abdominal pain. The abdominal pain is gotten worse over the last week. He also has some tenderness and distention. The patient stated that he does urinate sometimes. The patient also reported intermittent right arm weakness that he noticed at 9:00 a.m. today and lasted approximately 20 minutes and resolved on its own. The patient denies any facial numbness or weakness. No facial droop or difficulty speaking. Patient denies any history of CVA he does take a daily aspirin but does not take any other anticoagulant. His white count was noted to be 20.3. Sodium slightly low at 134 potassium 3.0. Chloride 95. Creatinine 4.4. Lactic initially 2.2 and then came down to 1.1. Initial troponin 0.066,and 3 hour troponin is 0.077. 6 hour troponin 0.081. Chest x-ray bilateral lower lobe atelectasis. Shallow inspiration. Dr. Sesay and Dr. Jacques has been consulted. Patient was given IV Tylenol, normal saline, Zofran, morphine, cefepime and vancomycin. He was also given hydralazine Dr. Sesay ordered Procardia and Prinivil. The patient stated that he had blood pressure medicine at 1 time but his physician would not refill them for him. Abdominal pelvis CT was read as small to moderate amount of ascites in the abdomen and pelvic likely related to peritoneal dialysis. No acute intra-abdominal pelvic process. Moderate to severe left and mild right renal atrophy. Head CT was read as old lacunar infarct and right caudate nucleus. Stable moderate nonspecific cerebral white matter disease which likely represents chronic small vessel ischemic disease. The patient will be getting nightly dialysis with vancomycin installation. The patient is being admitted to observation status on 08/14/2022. Review of Systems Review of Systems: See HPI All systems reviewed & are unremarkable except as noted in HPI and below Constitutional: Constitutional: Reports as per HPI and Reports no additional constitutional complaints Eyes: Eyes: Reports as per HPI and Reports no additional eye complaints ENT: Reports system reviewed and no additional complaints, except as documented and Reports Normal hearing present Cardiovascular: Cardiovascular: Reports no additional cardiovascular complaints Respiratory: Respiratory: Reports no additional respiratory complaints and Reports no additional respiratory complaints Gastrointestinal: Gastrointestinal: Reports as per HPI and Reports no additional gastrointestinal complaints Musculoskeletal: Musculoskeletal: Reports no additional musculoskeletal complaints Integumentary/Breasts: Skin/Breast: Reports system reviewed and no additional complaints, except as docu and Reports as per HPI Neurologic: Reports system reviewed and no additional complaints, except as documented, Reports as per HPI and Reports Normal hearing present Psychiatric: Psychiatric: Reports no additional psychiatric complaints and Reports as per HPI Endocrine: Endocrine: Reports no additional endocrine complaints Hematologic/Lymphatic: Hematologic/Lymphatic: Reports no additional hematologic/lymphatic complaints Allergic/Immunologic: Allergic/Immunologic: Reports no additional allergic/immunologic complaints [facility] Past Medical History Medical History (Updated 08/14/22 @ 19:25 by Liyah Molina NP) CKD (chronic kidney disease) stage V requiring chronic dialysis Colon cancer screening COPD (chronic obstructive pulmonary disease) End stage renal disease Peritoneal dialysis daily Erythropoietin deficiency anemia History of CVA (cerebrovascular accident) As per CT scan on 08/14/2022 shows old infarction Hypertension Peritoneal dialysis catheter in
[2022-08-14 18:09] LABS: Troponin I 0.081 ng/mL (0.000-0.034)
[2022-08-14 18:43] LABS: Appearance Urine Clear (Clear); Bilirubin Urine Negative (Negative); Blood Urine Negative (Negative); Color Urine Yellow (Yellow); Glucose Urine UA Trace mg/dL (Negative); Ketones Urine Negative (Negative); Leukocyte Esterase Ur Negative LEU/UL (Negative); Nitrate Urine Negative (Negative); Protein Urine 3+ mg/dL (Negative); Specific Grav Ur 1.015 (1.001-1.035); Urobilinogen Urine 0.2 mg/dL (<2.0); pH Urine 7.5 (5.0-9.0)
[2022-08-14 18:49] LABS: RBC Urine 0-2 /hpf (0-2); WBC Urine 0-3 /hpf
[2022-08-14 18:55] LABS: Add Urine Microscopic? YES
[2022-08-14] MEDS: PANTOPRAZOLE SODIUM IV 40 MG VIAL IV PUSH (20:45)
[2022-08-15] VITALS (19 sets, daily range): BP systolic 100–152; BP diastolic 52–90; PULSE 70–110; RESP 18–92; TEMP 36.3–36.8; O2SAT 94–98; BMI 22.3
[2022-08-15] MEDS: HYDROcodone/acetaminophen (*CRX) 5-325 MG TABLET 1 TAB PO ×2 (03:41→23:20)
[2022-08-15 05:28] LABS: Lactic Acid Reflex 1.3 mmol/L (0.7-2.0)
[2022-08-15 05:31] LABS: Basophils Absolute Auto 0.1 K/mm3 (0.0-0.1); Basophils Percent Auto 0.4 % (0.2-1.2); Eosinophils Absolute Auto 0.1 K/mm3 (0-0.3); Eosinophils Percent Auto 0.8 % (0-4.4); Hematocrit 38.2 % (42.0-52.0); Hemoglobin 12.7 g/dL (14.0-18.0); Immature Granulocyte Absolute 0.15 K/mm3 (0.00-0.031); Immature Granulocyte Percent A 1.1 % (0-0.5); Lymphocytes Absolute Auto 1.67 K/mm3 (0.9-3.2); Mean Corpuscular HGB Conc 33.2 g/dl (32-36); Mean Corpuscular Hemoglobin 31.1 pg (26-34); Mean Corpuscular Volume 93.4 fl (80-100); Mean Platelet Volume 9.7 fl (7.4-10.4); Monocytes Absolute Auto 0.8 K/mm3 (0.1-0.6); Monocytes Percent Auto 5.9 % (2.6-8.5); Neutrophils Absolute Auto 11.1 K/mm3 (1.3-6.7); Neutrophils Percent Auto 79.8 % (45.5-73.1); Platelet Count Result 313 k/mm3 (150-375); Red Blood Count 4.09 M/mm3 (4.6-6.20); Red Cell Distribution Width 13.2 % (11.5-14.5); White Blood Count 13.9 K/mm3 (4.5-10.0)
[2022-08-15 05:47] LABS: Alanine Aminotransferase 15 U/L (6-50); Albumin Level 2.9 g/dL (3.5-5.1); Alkaline Phosphatase 120 U/L (38-126); Anion Gap 9 mmol/L (8-16); Aspartate Amino Transferase 19 U/L (17-59); Bilirubin,Total 0.4 mg/dL (0.2-1.3); Blood Urea Nitrogen 20 mg/dL (9-20); Calcium 8.1 mg/dL (8.4-10.2); Carbon Dioxide 28 mmol/L (22-30); Chloride 97 mmol/L (98-107); Estimated CRCL calculation 14 ml/min; Estimated Glomerular Filt Rate 15; Glucose 135 mg/dL (65-110); Lactate Dehydrogenase 165 U/L (120-246); Lipase 21 U/L (23-300); Magnesium 1.7 mg/dL (1.6-2.3); Potassium 2.7 mmol/L (3.4-5.0); Sodium 134 mmol/L (137-145)
--- NOTE | 2022-08-15 07:31 | PC.NURSE ---
[id number] Sesay and he gave order for a 40 K rider.
[2022-08-15] MEDS: ASCORBIC ACID 250 MG TABLET PO (08:33)
[2022-08-15] MEDS: buPROPion HCL XL (24 HR) 150 MG TABCR PO ×2 (08:33→14:28)
[2022-08-15] MEDS: POTASSIUM CHLORIDE INJ 40 MEQ in SODIUM CHLORIDE 0.9% IV 500 ML 130 MEQ IVPB (08:33)
[2022-08-15] MEDS: ASPIRIN 81 MG CHEWABLE TABLET PO (08:33)
[2022-08-15] MEDS: ZINC SULFATE 220 MG CAPSULE PO (08:33)
[2022-08-15] MEDS: CHOLECALCIFEROL 1,000 UNITS TABLET 5000 UNITS PO (08:33)
[2022-08-15] MEDS: ATORVASTATIN 20 MG TABLET PO (08:33)
[2022-08-15] MEDS: PANTOPRAZOLE SODIUM IV 40 MG VIAL IV PUSH (08:33)
[2022-08-15] MEDS: CYANOCOBALAMIN 500 MCG TABLET PO (08:33)
--- NOTE | 2022-08-15 09:47 | P.PNIM_ITS ---
Progress Note: A&P Assessment and Plan (1) Severe sepsis: Code(s): A41.9 - Sepsis, unspecified organism; R65.20 - Severe sepsis without septic shock Status: Acute Assessment and Plan: Secondary to peritonitis. Patient presented to the ED with c/o abdominal pain and abdominal distention that worsened over the past week. On admission WBC 20, lactic acid 2.2, HR 126, RR 26, BP 242/127. Peritoneal fluid hazy with increased neutrophils and initial culture shows gram positive cocci growth suggesting acute infection. * Patient given 2 liters NS fluids in ED. IV Cefepime and IV Vancomycin. * blood cultures x2 and peritoneal fluid from his dialysis catheter pending. * Continue antibiotic therapy for peritonitis * Monitor hemodynamics. (2) Peritonitis: Code(s): K65.9 - Peritonitis, unspecified Status: Acute Assessment and Plan: Patient presented to the ED with c/o abdominal pain and abdominal distention that worsened over the past week. On admission WBC 20, lactic acid 2.2, HR 126, RR 26, BP 242/127. Peritoneal fluid hazy with increased neutrophils and initial culture shows gram positive cocci growth suggesting acute infection. * CT abd/pelvis showed small to moderate amount ascites likely related to peritoneal dialysis. No intra-abdominal abscess noted. * Nephrology consulted. * Peritoneal fluid analysis pending. Preliminary gram stain with gram positive cocci growth which will be covered by Vancomycin. * Continue intraperitoneal Ceftazidime infusion and IV Vancomycin * discussed antibiotic therapy with [facility] and will continue regimen pending culture results before de-escalation. * Blood cultures pending. * Trend CBC and monitor for improved leukocytosis (3) Ischemic stroke: Code(s): I63.9 - Cerebral infarction, unspecified Status: Acute Assessment and Plan: Patient presented to the ED with c/o right arm tingling and weakness which reportedly resolved after 20 minutes. BP 242/127 on admission. Upon my assessment at ~1115 on 08/15/22 patient noted to have flaccid RUE and 3/5 weakness RLE not present during breakfast, unknown exact time of change. BP noted to be 106/60 * 08/14/22 CT head with old lacunar infarct right caudate nucleus; no intracranial bleeding * 08/15/22 MRI brain with scattered small acute infarcts bilateral frontal and parietal lobes, loss of normal flow void noted to left carotid artery suggesting slow flow or thrombosis noted. * CT neck r/o left carotid thrombus * Echocardiogram with bubble study pending. * PT/OT/ST evaluation * ASA 325 mg PO x1 given 08/15/22 with new neuro symptoms. * Plavix 75 mg PO daily started 08/15/22 * continue lipitor * Permissive hypertension x 24 hours, then will plan to decrease to goal <130/80. PRN hydralazine IV SBP>180 * Check lipid panel and A1c * neuro checks Q4 hours (4) Numbness and tingling of right arm: Code(s): R20.0 - Anesthesia of skin; R20.2 - Paresthesia of skin Status: Acute Assessment and Plan: as above (5) Chest pain: Qualifiers: Chest pain type: unspecified Qualified Code(s): R07.9 - Chest pain, unspecified Code(s): R07.9 - Chest pain, unspecified Status: Acute Assessment and Plan: On admission, patient reportedly stated his abdomen hurts and it pushes up on his chest and goes up his esophagus. The pain is reproducible. Presumed to be GI related and non-cardiac. * Troponin 0.066 to 0.077 to 0.081 but likely secondary to renal disease and poor clearance given the pain is reproducible. * Continue protonix daily (6) Er
--- NOTE | 2022-08-15 09:47 | PM.IMPN ---
Progress Note: A&P Assessment and Plan (1) Severe sepsis: Code(s): A41.9 - Sepsis, unspecified organism; R65.20 - Severe sepsis without septic shock Status: Acute Assessment and Plan: Secondary to peritonitis. Patient presented to the ED with c/o abdominal pain and abdominal distention that worsened over the past week. On admission WBC 20, lactic acid 2.2, HR 126, RR 26, BP 242/127. Peritoneal fluid hazy with increased neutrophils and initial culture shows gram positive cocci growth suggesting acute infection. Patient given 2 liters NS fluids in ED. IV Cefepime and IV Vancomycin. blood cultures x2 and peritoneal fluid from his dialysis catheter pending. Continue antibiotic therapy for peritonitis Monitor hemodynamics. (2) Peritonitis: Code(s): K65.9 - Peritonitis, unspecified Status: Acute Assessment and Plan: Patient presented to the ED with c/o abdominal pain and abdominal distention that worsened over the past week. On admission WBC 20, lactic acid 2.2, HR 126, RR 26, BP 242/127. Peritoneal fluid hazy with increased neutrophils and initial culture shows gram positive cocci growth suggesting acute infection. CT abd/pelvis showed small to moderate amount ascites likely related to peritoneal dialysis. No intra-abdominal abscess noted. Nephrology consulted. Peritoneal fluid analysis pending. Preliminary gram stain with gram positive cocci growth which will be covered by Vancomycin. Continue intraperitoneal Ceftazidime infusion and IV Vancomycin discussed antibiotic therapy with [facility] and will continue regimen pending culture results before de-escalation. Blood cultures pending. Trend CBC and monitor for improved leukocytosis (3) Ischemic stroke: Code(s): I63.9 - Cerebral infarction, unspecified Status: Acute Assessment and Plan: Patient presented to the ED with c/o right arm tingling and weakness which reportedly resolved after 20 minutes. BP 242/127 on admission. Upon my assessment at ~1115 on 08/15/22 patient noted to have flaccid RUE and 3/5 weakness RLE not present during breakfast, unknown exact time of change. BP noted to be 106/60 08/14/22 CT head with old lacunar infarct right caudate nucleus; no intracranial bleeding 08/15/22 MRI brain with scattered small acute infarcts bilateral frontal and parietal lobes, loss of normal flow void noted to left carotid artery suggesting slow flow or thrombosis noted. CT neck r/o left carotid thrombus Echocardiogram with bubble study pending. PT/OT/ST evaluation ASA 325 mg PO x1 given 08/15/22 with new neuro symptoms. Plavix 75 mg PO daily started 08/15/22 continue lipitor Permissive hypertension x 24 hours, then will plan to decrease to goal <130/80. PRN hydralazine IV SBP>180 Check lipid panel and A1c neuro checks Q4 hours (4) Numbness and tingling of right arm: Code(s): R20.0 - Anesthesia of skin; R20.2 - Paresthesia of skin Status: Acute Assessment and Plan: as above (5) Chest pain: Qualifiers: Chest pain type: unspecified Qualified Code(s): R07.9 - Chest pain, unspecified Code(s): R07.9 - Chest pain, unspecified Status: Acute Assessment and Plan: On admission, patient reportedly stated his abdomen hurts and it pushes up on his chest and goes up his esophagus. The pain is reproducible. Presumed to be GI related and non-cardiac. Troponin 0.066 to 0.077 to 0.081 but likely secondary to renal disease and poor clearance given the pain is reproducible. 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 08/15/22 H/H 12.7/38.2 today, presumed to be decreased secondary to IV fluids given in ED. No s/s of acute bleeding noted. Nephrology following. If remains stable, with initiate heparin SQ fo
[2022-08-15 11:13] LABS: Vancomycin Random 24.1 ug/mL (10-20)
[2022-08-15] MEDS: SODIUM CHLORIDE 0.9% IV 500 ML 250 ML IV CONT (11:36)
[2022-08-15] MEDS: CLOPIDOGREL BISULFATE 75 MG TABLET PO (11:51)
[2022-08-15] MEDS: ASPIRIN 81 MG ENTERIC TABLET 243 MG PO (11:51)
--- NOTE | 2022-08-15 15:41 | PM.PNNEP ---
Progress Note: A&P Assessment and Plan (1) End stage renal disease: Code(s): N18.6 - End stage renal disease Status: Acute Assessment and Plan: the patient has end-stage renal disease. He is on peritoneal dialysis. He has been on this for about 3 years. He has never had a peritonitis episode. The patient has peritonitis. Fluid cultures pending. G stain did show gram-positive cocci. PD Nucleated cell count was 03/31/2079. Await sensitivities and identification to see what to treat with. Will continue same antibiotics for now. (2) Erythropoietin deficiency anemia: Code(s): D63.1 - Anemia in chronic kidney disease Status: Acute Assessment and Plan: His hemoglobin is good right now. hemoglobin came down some but still above target at 12.7. (3) WILMER (renal osteodystrophy): Code(s): N25.0 - Renal osteodystrophy Status: Acute Assessment and Plan: Phosphorus level is good at 4.0 (4) Tobacco abuse: Code(s): Z72.0 - Tobacco use Status: Acute Assessment and Plan: he is encouraged to quit. (5) Hypertension: Code(s): I10 - Essential (primary) hypertension Status: Acute Assessment and Plan: Blood pressure was extremely high. yesterday he received hydralazine 1 dose plus nifedipine and lisinopril. His blood pressure is much better ever since then. (6) COPD (chronic obstructive pulmonary disease): Code(s): J44.9 - Chronic obstructive pulmonary disease, unspecified Status: Acute Assessment and Plan: the patient has COPD, likely from cigarette use. Subjective Date/time seen: 08/15/22 15:41 Interval history: Patient feels better today. He has some cramping. His belly pain is better. He did need breakfast because it did not taste good, not because he did not have an appetite. Review of Systems Cardiovascular: Cardiovascular: Reports no additional cardiovascular complaints Respiratory: Respiratory: Reports no additional respiratory complaints Gastrointestinal: Gastrointestinal: Reports no additional gastrointestinal complaints Genitourinary: Genitourinary: Reports no additional male genitourinary complaints Exam Narrative: WDWN in NAD skin no rash head ncat lungs clear cor reg no rub abd BS+ less tender and softer ext no edema. Objective Data Vital Signs Vital Signs: Vital Signs - 24 hr 08/14/22 16:00 11/03/22 16:00 08/14/22 16:00 Temperature 36.7 C Pulse Rate 112 H 126 H Respiratory Rate 26 H Blood Pressure 170/101 H Pulse Oximetry 96 Oxygen Delivery Room Air 08/14/22 18:39 08/14/22 18:00 08/14/22 20:18 Temperature 36.9 C 36.9 C Pulse Rate 99 98 99 Respiratory Rate 22 H 22 H Blood Pressure 133/78 133/78 Pulse Oximetry 96 Oxygen Delivery Room Air 08/14/22 20:00 08/14/22 20:00 08/14/22 20:00 Temperature 37.0 C Pulse Rate 99 97 Respiratory Rate 18 Blood Pressure 136/74 Pulse Oximetry 95 Oxygen Delivery Room Air 08/14/22 22:00 08/15/22 00:00 08/15/22 00:00 Temperature Pulse Rate 90 92 Respiratory Rate Blood Pressure Pulse Oximetry 95 Oxygen Delivery Room Air 08/15/22 00:00 08/15/22 02:00 08/15/22 04:00 Temperature 36.3 C L Pulse Rate 88 93 95 Respiratory Rate 18 Blood Pressure 117/79 Pulse Oximetry 98 Oxygen Delivery 08/15/22 04:00 08/15/22 04:00 08/15/22 06:00 Temperature 36.3 C L Pulse Rate 90 107 H Respiratory Rate 92 H Blood Pressure 122/66 Pulse Oximetry 98 96 Oxygen Delivery Room Air 08/15/22 08:00 08/15/22 07:30 08/15/22 08:00 Temperature 36.6 C 36.6 C Pulse Rate 93 93 98 Respiratory Rate 18 18 Blood Pressure 106/66 106/66 Pulse Oximetry 96 Oxygen Delivery 08/15/22 08:00 08/15/22 11:25 08/15/22 10:00 Temperature Pulse Rate 90 Respiratory Rate Blood Pressure 127/52 L Pulse Oximetry Oxygen Deliv
[2022-08-15 16:10] LABS: Potassium 3.4 mmol/L (3.4-5.0)
[2022-08-16] VITALS (41 sets, daily range): BP systolic 60–160; BP diastolic 40–133; PULSE 79–139; RESP 16–44; TEMP 35.6–37.3; O2SAT 82–100
--- NOTE | 2022-08-16 | ECHO_ITS ---
Patient Info Name: Rony Ferrari Age: 67 years : 1955 Gender: Male Ht: 66 in Wt: 138 lbs BSA: 1.71 m2 HR: 92 bpm BP: 104 / 84 mmHg Heart Rhythm: Sinus Rhythm Exam Date: 08/16/2022 8:43 AM Exam Location: [facility] Patient Status: Inpatient Admit Date: 08/15/2022 Staff Ordering Physician: Barbara Delgado APRN Night Nurse: Jer Donato RDCS Attending Provider: Abel Feliciano MD Referring Physician: Danny ARMSTRONG; Exam Type: CA echo doppler w bubble study Study Info Indications - acute stroke Complete two-dimensional, color flow and Doppler transthoracic echocardiogram is performed with agitated saline. Contrast/Agitated Saline Contrast/Ag. Saline: Agitated Saline Amount: 20.00 ml Administered By: Jer Donato RDCS Existing IV Access: Yes IV Access Condition: patent with no signs of infiltration Summary 1. Left ventricular chamber dimension is normal. 2. Left ventricular systolic function is normal, estimated at 60-65%. 3. There is moderate to severely increased left ventricular wall thickness. 4. The left ventricular diastolic function is grade I diastolic dysfunction. 5. There is no aortic valve stenosis. 6. No intracardiac shunt at atrial level with injection of agitated saline with and without Valsalva. Interatrial septum thin and hypermobile. Consider transesophageal echocardiogram if clinically indicated. Left Ventricle Left ventricular chamber dimension is normal. Left ventricular systolic function is normal, estimated at 60-65%. There is moderate to severely increased left ventricular wall thickness. The left ventricular diastolic function is grade I diastolic dysfunction. Right Ventricle Right ventricular chamber dimension is normal. Right ventricular systolic function is normal. Left Atria Left atrial chamber dimension is normal. Right Atria Right atrial chamber dimension is normal. Atrial Septum No intracardiac shunt at atrial level with injection of agitated saline with and without Valsalva. Interatrial septum thin and hypermobile. Consider transesophageal echocardiogram if clinically indicated. Aortic Valve The aortic valve is trileaflet. There is mild aortic valve sclerosis. There is no aortic valve stenosis. There is trace aortic valve regurgitation. Pulmonic Valve The pulmonic valve is normal. There is trace pulmonic regurgitation. Mitral Valve The mitral valve has normal leaflets. There is trace mitral valve regurgitation. The mitral valve annulus is mildly calcified. Tricuspid Valve The tricuspid valve leaflets are normal. There is mild tricuspid valve regurgitation. Unable to estimate PA systolic pressure due to poor spectral resolution of tricuspid regurgitant jet velocity. Pericardium/Pleural The pericardium appears normal. There is trivial pericardial effusion. Left pleural effusion. Inferior Vena Cava Normal inferior vena cava with >50% collapse upon inspiration consistent with normal right atrial pressure, 5 mmHg. Aorta The aortic root size at the sinus of Valsalva is normal. There is mild aortic atherosclerosis. Left Ventricular Outflow Tract Name Value Normal LVOT 2D
[2022-08-16 00:28] LABS: Alveolar/Arterial O2 Gradient 254.8 mmHg; Base Excess ABG -8.3 mEq/l (+/-2.0); Fractional Inspired Oxygen 60 %; HCO3 ABG 15.2 mEq/l (22.0-26.0); Oxygen Content ABG 20.3 %vol (16.0-22.0); Oxygen Saturation ABG 98.8 % (95.0-100.0); Oxyhemoglobin 97.6 % THb (90.0-100.0); PCO2 ABG 26.7 mmHg (35.0-45.0); PO2 ABG 143.6 mmHg (80.0-100.0); PO2 FiO2 Ratio Arterial Blood 2.39 %; Total Hemoglobin 14.6 g/dL (12.0-18.0); pH ABG 7.373 (7.350-7.450)
[2022-08-16] MEDS: ETOMIDATE 20 MG/10 ML AMPUL IV PUSH (00:49)
[2022-08-16] MEDS: ROCURONIUM BROMIDE 50 MG/5 ML VIAL 60 MG IV PUSH ×2 (00:50→03:43)
[2022-08-16 01:06] LABS: Glucose Point of Care 249 mg/dl (65-105)
--- NOTE | 2022-08-16 01:24 | PC.NURSE ---
Patient was given norco for back pain at 1120. Shortly after he asked to get up to the commode to have a bowel movement. This RN got him up and asked him to call when he was done and he agreed. Patient was keenly responsive and stable at this time. This RN went to administer meds in other rooms when he was heard grunting. Upon assessment the patient was found slumped over the commode and non-responsive. A rapid response was called immediately and the determination was made to transfer patient to ICU. Vitals and Rapid assessment per chart.
[2022-08-16 01:37] LABS: Modified Allen's Test Pass; Site Drawn LEFT RADIAL
[2022-08-16 01:38] LABS: Device NASAL CANNULA
--- NOTE | 2022-08-16 01:39 | P.RRN_ITS ---
Critical Care Event Note Summary Code activated: No Narrative: Rapid response was called to patient's room due to severe respiratory distress, altered mental status patient was clammy and diaphoretic modeling was noted and his bilateral lower extremities as well. this happened while patient was doing his peritoneal dialysis. This is a 67-year-old male with past medical history significant for end-stage renal disease on peritoneal dialysis he was initially admitted to the hospital for presumptive peritonitis and placed on ceftazidime and vancomycin sepsis protocol in progress. vitals blood pressure 153/111 respiratory rate was 30 oxygen saturation 83% general: Severe distress, altered mental status, diaphoretic, clammy, mottling. HEENT: Atraumatic normocephalic PERRLA EOM intact supple no JVD no lymphadenopathy respiratory: Labored breathing, tachypneic, diminished throughout. cardiovascular: Sinus tachycardia abdomen: Distended, firm, tympanic. muscle skeletal: Mottling, livedo reticularis. central nervous system: Obtundation skin: Generalized pallor assessment and plan 1. Acute hypoxic respiratory failure: Patient placed on ventilator support. consult critical care/gate mortiser operator 2. Sepsis: Cultures in progress, early goal-directed therapy in progress. 3. End-stage renal disease: On peritoneal dialysis 4. Abdominal distension: Ileus, NG in, NPO. This case had a high probability of a clinically significant, sudden, or life threatening deterioration of this patient's condition which required my full and direct attention, intervention and personal management. Critical care time: 105 - 134 mins
[2022-08-16] MEDS: MIDAZOLAM 100MG/NS 100ML(*CRX) 100 MG/100 ML BAG IV CONT (01:49)
[2022-08-16] MEDS: FENTANYL 2,500MCG/NS250ML(*CRX 2,500 MCG/250 ML BAG IV CONT (01:50)
--- NOTE | 2022-08-16 01:53 | WPDPROCEDUR ---
Procedures Intubation Intubation Date: 08/16/22 Intubation Time: 01:00 Consent: yes Sedative: etomidate Mg given: 20 Paralytic: rocuronium Mg given: 60 Laryngoscope: fiber optic video scope Assist device used: fiber optic device ET tube size: 8 Tube secured depth (cm): 28 Tube secured location: lips Tube placement confirmation: visualized tube passing through cords, equal breath sounds bilaterally, no breath sounds over epigastrium and confirmation by capnometry Patient tolerated procedure: well and no complications Intubation complications: none
[2022-08-16 02:22] LABS: Anion Gap 19 mmol/L (8-16); Blood Urea Nitrogen 21 mg/dL (9-20); Calcium 8.7 mg/dL (8.4-10.2); Carbon Dioxide 20 mmol/L (22-30); Chloride 97 mmol/L (98-107); Estimated CRCL calculation 11 ml/min; Estimated Glomerular Filt Rate 11; Glucose 265 mg/dL (65-110); Potassium 2.8 mmol/L (3.4-5.0); Sodium 136 mmol/L (137-145)
[2022-08-16] MEDS: SODIUM BICARBONATE 8.4% 50 MEQ/50 ML SYRINGE 100 MEQ IV PUSH (04:06)
[2022-08-16] MEDS: SODIUM BICARBONATE 8.4% 50 MEQ/50 ML SYRINGE IV PUSH (04:06)
[2022-08-16] MEDS: POTASSIUM CHLORIDE INJ 40 MEQ in SODIUM CHLORIDE 0.9% IV 500 ML 130 MEQ IVPB (04:46)
[2022-08-16] MEDS: SODIUM CHLORIDE 0.9% IV 1,000 ML 999 ML IV CONT (04:47)
--- NOTE | 2022-08-16 05:26 | P.PCNBED_ITS ---
Procedures Central Line Placement Right IJ: Central Line Date: 08/16/22 Central Line Time: 04:45 Consent: I have discussed with the patient and/or surrogate, the non-emergent placement of a central venous catheter, including its clinical necessity/indication and associated potential risks and complications. The patient and/or surrogate understand(s) and acknowledge(s) the need to proceed with central venous catheter insertion as an important element of the patient's clinical management. Time Out Performed: Yes Patient Position: trendelenburg Patient placed on monitor/pulse ox: Yes Provider Prep: mask, sterile gown, sterile gloves, Max. sterile barrier precautions, cap and hand hygiene with conventional soap/water or alcohol based hand rub Central line prep: 2% Chlorhexidine scrub Amount of anesthesia used (ml): 0 Sterile US Technique with sterile gel/sterile probe covers: Yes Central line lumen inserted: triple Tristanian: 15 Length (cm): 12 Depth of Insertion (cm): 12 Post Procedure: sutured in place, good blood return, all ports aspirated, flushed, capped, transparent dressing, hemostatic product, antimicrobial product, securement product and aseptic technique maintained throughout procedure Post procedure x-ray: tip of catheter in good position Patient tolerated procedure: no complications Complications: none
[2022-08-16 05:31] LABS: Alveolar/Arterial O2 Gradient 230.6 mmHg; Base Excess ABG 6.1 mEq/l (+/-2.0); Carboxyhemoglobin 0.3 % THb (0-2.0); Fractional Inspired Oxygen 60 %; HCO3 ABG 30.1 mEq/l (22.0-26.0); Methemoglobin ABG 0.2 %THb (0-1.5); Oxygen Content ABG 19.2 %vol (16.0-22.0); Oxygen Saturation ABG 99.1 % (95.0-100.0); Oxyhemoglobin 97.7 % THb (90.0-100.0); PCO2 ABG 41.1 mmHg (35.0-45.0); PO2 FiO2 Ratio Arterial Blood 2.53 %; Reduced Hemoglobin 1.8 %THb (0-5.0); Total Hemoglobin 13.8 g/dL (12.0-18.0); pH ABG 7.482 (7.350-7.450)
--- NOTE | 2022-08-16 05:31 | WPDPROCEDUR ---
Procedures Intubation Intubation Date: 08/16/22 Intubation Time: 04:15 Sedative: none Laryngoscope: fiber optic video scope Assist device used: fiber optic device ET tube size: 7.5 Tube secured depth (cm): 26 Tube secured location: lips Tube placement confirmation: visualized tube passing through cords, equal breath sounds bilaterally, no breath sounds over epigastrium and confirmation by capnometry Patient tolerated procedure: well and no complications Intubation complications: none Additional comments: Patient was re intubated due to ETT cuff deflation.
[2022-08-16 05:32] LABS: Modified Allen's Test Pass; Site Drawn RIGHT RADIAL
[2022-08-16 05:33] LABS: Device VENTILATOR
[2022-08-16 05:35] LABS: Arterial Blood Gas PEEP 5 cmH2O; Arterial Blood Gas Vent Mode CMV; Arterial Blood Gas Ventilator rate 18 /MIN
[2022-08-16 05:36] LABS: Arterial Blood Gas Tidal Volume 400 ml
[2022-08-16 06:13] LABS: Basophils Absolute Auto 0.1 K/mm3 (0.0-0.1); Basophils Percent Auto 0.2 % (0.2-1.2); Eosinophils Absolute Auto 0.1 K/mm3 (0-0.3); Eosinophils Percent Auto 0.2 % (0-4.4); Hematocrit 40.3 % (42.0-52.0); Immature Granulocyte Absolute 0.68 K/mm3 (0.00-0.031); Immature Granulocyte Percent A 2.3 % (0-0.5); Lymphocytes Absolute Auto 1.31 K/mm3 (0.9-3.2); Lymphocytes Percent Auto 4.4 % (18.3-44.2); Mean Corpuscular HGB Conc 32.3 g/dl (32-36); Mean Platelet Volume 9.5 fl (7.4-10.4); Monocytes Absolute Auto 1.7 K/mm3 (0.1-0.6); Monocytes Percent Auto 5.8 % (2.6-8.5); Neutrophils Absolute Auto 25.6 K/mm3 (1.3-6.7); Neutrophils Percent Auto 87.1 % (45.5-73.1); Platelet Count Result 314 k/mm3 (150-375); Red Cell Distribution Width 13.7 % (11.5-14.5); White Blood Count 29.5 K/mm3 (4.5-10.0)
[2022-08-16] MEDS: CENTRAL LINE FLUSH 10 ML IV PUSH ×3 (06:26→22:49)
[2022-08-16 06:29] LABS: Alanine Aminotransferase 20 U/L (6-50); Albumin Level 2.8 g/dL (3.5-5.1); Alkaline Phosphatase 141 U/L (38-126); Anion Gap 12 mmol/L (8-16); Aspartate Amino Transferase 34 U/L (17-59); Bilirubin,Total 0.5 mg/dL (0.2-1.3); Blood Urea Nitrogen 23 mg/dL (9-20); Calcium 7.7 mg/dL (8.4-10.2); Carbon Dioxide 28 mmol/L (22-30); Chloride 100 mmol/L (98-107); Cholesterol 147 mg/dL (0-200); Estimated CRCL calculation 12 ml/min; Estimated Glomerular Filt Rate 11; Glucose 175 mg/dL (65-110); HDL Direct 33 mg/dL; Magnesium 1.8 mg/dL (1.6-2.3); Potassium 2.9 mmol/L (3.4-5.0); Sodium 140 mmol/L (137-145); Triglycerides 184 mg/dL (<150)
[2022-08-16 06:33] LABS: Hemoglobin A1C 5.8 % (<5.7)
[2022-08-16 06:41] LABS: LDL Cholesterol Direct 75 mg/dL
[2022-08-16 06:54] LABS: Vancomycin Random 17.6 ug/mL (10-20)
[2022-08-16] MEDS: ALBUMIN HUMAN 25% 25 GM/100 ML 100 ML IVPB ×3 (08:03→20:03)
[2022-08-16] MEDS: LACTATED RINGERS 500 ML 999 ML IV CONT (08:03)
[2022-08-16] MEDS: POTASSIUM CHLORIDE 20 MEQ PACKET (FOR LIQUID) 40 MEQ FEED TUBE (08:04)
--- NOTE | 2022-08-16 08:45 | WPDCNINT ---
Assessment and Plan Assessment and plan (1) Acute respiratory failure: Code(s): J96.00 - Acute respiratory failure, unspecified whether with hypoxia or hypercapnia Status: Acute Assessment and Plan: Acute respiratory failure, patient was intubated on 08/16/2022 in early hours -patient was found to be in respiratory distress, altered mental status, unable to protect his airway -respiratory failure likely related to mental status issues and or infectious cause/severe sepsis -patient currently on CMV mode of ventilation, peep of 5, 60% FiO2, -ABGs and chest x-ray reviewed, wean FiO2 to maintain O2 sats greater than 92% -added Xopenex and Atrovent -patient is sedated with fentanyl Versed infusion, maintain RASS of 0--2, daily sedation vacation (2) Peritonitis: Code(s): K65.9 - Peritonitis, unspecified Status: Acute Assessment and Plan: Patient presented to the ED on 08/14/2022 with complains of diffuse abdominal pain x1 week. Paracentesis revealed peritonitis, and peritoneal fluid growing gram-positive cocci -patient started on intraperitoneal ceftazidime and IV vancomycin (08/14) -nephrology following the patient -lactic acid was 4.0 overnight, this morning it has normalized 2.0 -will give 500 mL IV fluid bolus -will start albumin x 4 doses (3) Severe sepsis: Code(s): A41.9 - Sepsis, unspecified organism; R65.20 - Severe sepsis without septic shock Status: Acute Assessment and Plan: Patient with severe sepsis, leukocytosis, lactic acidosis, hypotension, acute respiratory failure, peritonitis -lactic acid has normalized, -hemodynamically stable, not requiring vasopressors at this time -antibiotics as above (4) Ischemic stroke: Code(s): I63.9 - Cerebral infarction, unspecified Status: Acute Assessment and Plan: Patient with ischemic stroke 08/14/2022 CT brain showed old lacunar infarct, right caudate nucleus, no intracranial bleeding. 08/15/2022 MRI brain showed scattered small acute infarcts bilateral frontal and parietal lobes, loss of normal flow void noted to left carotid artery suggesting slow flow or thrombus noted. 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 Suggestion of either slow flow potentially occlusion of the right vertebral artery. This morning patient was unable to follow commands on his right upper and lower extremity, right side was flaccid, he was withdrawing to pain on the right upper and lower extremity. Stat CT scan of the brain has been ordered Will discuss Neurology (5) COPD (chronic obstructive pulmonary disease): Qualifiers: COPD type: unspecified COPD Qualified Code(s): J44.9 - Chronic obstructive pulmonary disease, unspecified Code(s): J44.9 - Chronic obstructive pulmonary disease, unspecified Status: Chronic Assessment and Plan: Continue bronchodilators, mechanical ventilation (6) End stage renal disease: Code(s): N18.6 - End stage renal disease Status: Chronic Assessment and Plan: Patient with end-stage renal disease on peritoneal dialysis -nephrology following the patient -monitor renal function, electrolytes and urine output as he does make a little urine (7) Hypertension: Qualifiers: Hypertension type: unspecified Qualified Code(s): I10 - Essential (primary) hypertension Code(s): I10 - Essential (primary) hypertension Status: Chronic Assessment and Plan: Patient with history of essential hypertension, according to the bedside nurse, patient's blood pressures have been labile overnight with swings to highs and lows. -patient given IV fluid bolus and will be started on albumin -blood pressure is a much improved, Plan DVT prophylaxis: Heparin subQ Stress ulcer prophylaxis: Protonix Nutrition: Start tube feeds Code Status: Full code Cri
[2022-08-16 09:22] LABS: Appearance Peritoneal Fluid Clear (Clear)
[2022-08-16 09:23] LABS: Color Peritoneal Fluid Colorless (Colorless); Source Peritoneal Fluid Peritoneal Fluid
[2022-08-16 09:25] LABS: Lymphocytes Peritoneal Fluid 19 %; Mesothelial Cells Peritoneal Fluid 1 %; Monocytes Peritoneal Fluid 7 %; Neutrophils Peritoneal Fluid 73 % (0-25); Nucleated Cells Peritoneal Flu 223 /uL (0-500); RBC Peritoneal Fluid 7 /uL (0-100000)
--- NOTE | 2022-08-16 09:43 | PCSTNOTE ---
Attempted to see patient for bedside swallowing evaluation. Out of room for catscan. Will try again later if schedule permits.
--- NOTE | 2022-08-16 10:00 | PCOTNOTE ---
Attempted OT evaluation; pt. is currently intubated and not medically appropriate at this time. RN to DC OT evaluation orders at this time. Once medically stable new OT orders will be completed.
[2022-08-16] MEDS: PANTOPRAZOLE SODIUM IV 40 MG VIAL IV PUSH (10:52)
[2022-08-16] MEDS: CHOLECALCIFEROL 1,000 UNITS TABLET 5000 UNITS PO (10:52)
[2022-08-16] MEDS: ASPIRIN 81 MG CHEWABLE TABLET PO (10:53)
[2022-08-16] MEDS: buPROPion HCL XL (24 HR) 150 MG TABCR PO ×2 (10:53→15:19)
[2022-08-16] MEDS: CLOPIDOGREL BISULFATE 75 MG TABLET PO (10:53)
[2022-08-16] MEDS: CYANOCOBALAMIN 500 MCG TABLET PO (10:53)
[2022-08-16] MEDS: ASCORBIC ACID 250 MG TABLET PO (10:53)
[2022-08-16] MEDS: ZINC SULFATE 220 MG CAPSULE PO (10:53)
[2022-08-16] MEDS: MINERAL OIL/WHITE PETROLATUM OINTMENT 1 APPLIC EACH EYE ×2 (11:13→20:03)
[2022-08-16 12:02] LABS: Glucose Point of Care 119 mg/dl (65-105)
--- NOTE | 2022-08-16 12:04 | PCSTNOTE ---
Patient intubated at this time. Will request DC speech therapy evaluation for swallowing until appropriate.
--- NOTE | 2022-08-16 12:07 | PM.PNNEP ---
Progress Note: A&P Assessment and Plan (1) End stage renal disease: Code(s): N18.6 - End stage renal disease Status: Chronic Assessment and Plan: the patient has end-stage renal disease. He is on peritoneal dialysis. The patient has peritonitis. the cell count dropped from 2600 to 223. Peritoneal dialysis fluid culture still pending. Await sensitivities and identification to see what to treat with. Will continue same antibiotics for now. (2) Erythropoietin deficiency anemia: Code(s): D63.1 - Anemia in chronic kidney disease Status: Chronic Assessment and Plan: His hemoglobin is good right now. hemoglobin came down some but still above target at 13 (3) WILMER (renal osteodystrophy): Code(s): N25.0 - Renal osteodystrophy Status: Acute Assessment and Plan: Phosphorus level is good at 3.0 (4) Tobacco abuse: Code(s): Z72.0 - Tobacco use Status: Chronic Assessment and Plan: he was encouraged to quit. (5) Hypertension: Qualifiers: Hypertension type: unspecified Qualified Code(s): I10 - Essential (primary) hypertension Code(s): I10 - Essential (primary) hypertension Status: Chronic Assessment and Plan: Blood pressure was extremely high in the emergency room. His blood pressure is very labile. At 1 point he was as low as 60/40. His meds are on hold and will allow the blood pressure to be generous because of his stroke. (6) COPD (chronic obstructive pulmonary disease): Qualifiers: COPD type: unspecified COPD Qualified Code(s): J44.9 - Chronic obstructive pulmonary disease, unspecified Code(s): J44.9 - Chronic obstructive pulmonary disease, unspecified Status: Chronic Assessment and Plan: the patient has COPD, likely from cigarette use. 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 Discussed at length with Dr. Ontiveros Subjective Date/time seen: 08/16/22 12:07 Interval history: Patient developed somnolence last night. He was moved the ICU and intubated because of airway protection. This event happened while he was on PD. The floor nurses disconnected the machine so they could move in to the ICU. He has developed weakness on the right. Exam Narrative: WDWN on the ventilator and sedated in NAD skin no rash head ncat lungs Coarse bilaterally cor reg no rub or gallop abd BS+ less tender and softer ext no edema. Objective Data Vital Signs Vital Signs: Vital Signs - 24 hr 08/15/22 13:44 08/15/22 12:50 08/15/22 14:45 Temperature Pulse Rate Respiratory Rate Blood Pressure 137/87 100/60 112/72 Pulse Oximetry Oxygen Delivery Fraction of Inspired Oxygen 08/15/22 14:00 08/15/22 15:32 08/15/22 16:00 Temperature 36.6 C Pulse Rate 70 93 Respiratory Rate 22 H Blood Pressure 124/76 Pulse Oximetry 97 Oxygen Delivery Room Air Fraction of Inspired Oxygen 08/15/22 16:00 08/15/22 16:45 08/15/22 17:51 Temperature Pulse Rate 88 92 Respiratory Rate Blood Pressure 152/52 H Pulse Oximetry Oxygen Delivery Fraction of Inspired Oxygen 08/15/22 19:08 08/15/22 20:00 08/15/22 20:00 Temperature 36.8 C 36.8 C Pulse Rate 101 H 110 H Respiratory Rate 18 20 Blood Pressure 116/77 151/87 H Pulse Oximetry 96 94 Oxygen Delivery Room Air Room Air Fraction of Inspired Oxygen 08/15/22 20:00 08/16/22 00:24 08/16/22 00:00 Temperature 35.9 C L Pulse Rate 109 H 99 122 H Respiratory Rate 44 H 41 H Blood Pressure 60/40 L Pulse Oximetry 92 82 L Oxygen Delivery BiPAP Fraction of Inspired Oxygen 08/15/22 22:00
[2022-08-16] MEDS: LEVALBUTEROL NEB 1.25 MG/3 ML 0.63 MG INHALATION ×2 (12:51→21:22)
[2022-08-16] MEDS: IPRATROPIUM BR 0.02% INH SOLN 0.5 MG/2.5 ML VIAL INHALATION ×2 (12:52→21:22)
[2022-08-16] MEDS: HEPARIN SODIUM 5,000 UNITS/ML VIAL 5000 UNITS SUB-Q ×2 (13:48→22:47)
[2022-08-16] MEDS: ATORVASTATIN 20 MG TABLET PO (15:15)
[2022-08-16 18:14] LABS: Glucose Point of Care 116 mg/dl (65-105)
[2022-08-17] VITALS (29 sets, daily range): BP systolic 110–142; BP diastolic 66–83; PULSE 76–130; RESP 14–25; TEMP 37.2–38; O2SAT 94–100
[2022-08-17 01:06] LABS: Glucose Point of Care 109 mg/dl (65-105)
--- NOTE | 2022-08-17 01:16 | PC.NURSE ---
Daylight Savings Time For Daylight Savings Time Ending in the Fall - Clocks are moved back. For Daylight Savings Time Beginning in the Spring - Clocks are moved ahead. For [facility], the time of change occurs at 0200 hrs. Time is taken from the seismic prospecting observer helper. This entry on the patient's chart recognizes the change in time reflected during documentation. Example: 2 entries for vital signs may be charted for 0200 hrs.
[2022-08-17] MEDS: ALBUMIN HUMAN 25% 25 GM/100 ML 100 ML IVPB (02:07)
[2022-08-17] MEDS: IPRATROPIUM BR 0.02% INH SOLN 0.5 MG/2.5 ML VIAL INHALATION ×4 (03:01→20:31)
[2022-08-17] MEDS: LEVALBUTEROL NEB 1.25 MG/3 ML 0.63 MG INHALATION ×4 (03:01→20:31)
[2022-08-17 05:18] LABS: Basophils Percent Auto 0.2 % (0.2-1.2); Eosinophils Absolute Auto 0.6 K/mm3 (0-0.3); Eosinophils Percent Auto 3.5 % (0-4.4); Hematocrit 30.5 % (42.0-52.0); Hemoglobin 9.8 g/dL (14.0-18.0); Immature Granulocyte Absolute 0.13 K/mm3 (0.00-0.031); Immature Granulocyte Percent A 0.8 % (0-0.5); Lymphocytes Percent Auto 10.4 % (18.3-44.2); Mean Corpuscular HGB Conc 32.1 g/dl (32-36); Mean Corpuscular Hemoglobin 31.3 pg (26-34); Mean Corpuscular Volume 97.4 fl (80-100); Mean Platelet Volume 9.2 fl (7.4-10.4); Monocytes Percent Auto 6.2 % (2.6-8.5); Neutrophils Absolute Auto 12.9 K/mm3 (1.3-6.7); Neutrophils Percent Auto 78.9 % (45.5-73.1); Platelet Count Result 236 k/mm3 (150-375); Red Blood Count 3.13 M/mm3 (4.6-6.20); Red Cell Distribution Width 13.7 % (11.5-14.5); White Blood Count 16.4 K/mm3 (4.5-10.0)
[2022-08-17] MEDS: HEPARIN SODIUM 5,000 UNITS/ML VIAL 5000 UNITS SUB-Q ×3 (05:25→22:12)
[2022-08-17] MEDS: CENTRAL LINE FLUSH 10 ML IV PUSH ×3 (05:26→22:13)
[2022-08-17 05:28] LABS: Alanine Aminotransferase 15 U/L (6-50); Albumin Level 3.8 g/dL (3.5-5.1); Alkaline Phosphatase 82 U/L (38-126); Anion Gap 11 mmol/L (8-16); Aspartate Amino Transferase 29 U/L (17-59); Bilirubin,Total 0.7 mg/dL (0.2-1.3); Blood Urea Nitrogen 23 mg/dL (9-20); Calcium 8.6 mg/dL (8.4-10.2); Carbon Dioxide 31 mmol/L (22-30); Chloride 98 mmol/L (98-107); Estimated CRCL calculation 12 ml/min; Estimated Glomerular Filt Rate 11; Glucose 107 mg/dL (65-110); Magnesium 1.6 mg/dL (1.6-2.3); Potassium 2.9 mmol/L (3.4-5.0); Sodium 140 mmol/L (137-145)
[2022-08-17 05:30] LABS: Alveolar/Arterial O2 Gradient 79.1 mmHg; Base Excess ABG 8.7 mEq/l (+/-2.0); Carboxyhemoglobin 0.2 % THb (0-2.0); Fractional Inspired Oxygen 30 %; HCO3 ABG 31.5 mEq/l (22.0-26.0); Methemoglobin ABG 0.2 %THb (0-1.5); Oxygen Content ABG 13.4 %vol (16.0-22.0); Oxygen Saturation ABG 97.9 % (95.0-100.0); Oxyhemoglobin 96.2 % THb (90.0-100.0); PCO2 ABG 36.1 mmHg (35.0-45.0); PO2 ABG 92.4 mmHg (80.0-100.0); PO2 FiO2 Ratio Arterial Blood 3.08 %; Reduced Hemoglobin 3.4 %THb (0-5.0); Total Hemoglobin 9.8 g/dL (12.0-18.0)
[2022-08-17 05:42] LABS: Arterial Blood Gas PEEP 5 cmH2O; Arterial Blood Gas Tidal Volume 400 ml; Arterial Blood Gas Vent Mode CMV; Arterial Blood Gas Ventilator rate 16 /MIN; Device VENTILATOR; Modified Allen's Test Pass; Site Drawn RIGHT RADIAL; pH ABG 7.558 (7.350-7.450)
[2022-08-17 05:47] LABS: Vancomycin Random 16.5 ug/mL (10-20)
[2022-08-17] MEDS: FENTANYL 2,500MCG/NS250ML(*CRX 2,500 MCG/250 ML BAG 7.5 MCG IV CONT (05:56)
[2022-08-17] MEDS: POTASSIUM CHLORIDE 20 MEQ PACKET (FOR LIQUID) 40 MEQ FEED TUBE (07:28)
[2022-08-17] MEDS: MAGNESIUM SULF 2 GM/WATER 50ML 2 GM/50 ML BAG IVPB (07:28)
[2022-08-17] MEDS: buPROPion HCL XL (24 HR) 150 MG TABCR PO ×2 (07:29→13:04)
[2022-08-17] MEDS: PANTOPRAZOLE SODIUM IV 40 MG VIAL IV PUSH (08:44)
[2022-08-17] MEDS: ASPIRIN 81 MG CHEWABLE TABLET PO (08:44)
[2022-08-17] MEDS: CHOLECALCIFEROL 1,000 UNITS TABLET 5000 UNITS PO (08:44)
[2022-08-17] MEDS: ATORVASTATIN 20 MG TABLET PO (08:45)
[2022-08-17] MEDS: CLOPIDOGREL BISULFATE 75 MG TABLET PO (08:45)
[2022-08-17] MEDS: ASCORBIC ACID 250 MG TABLET PO (08:45)
[2022-08-17] MEDS: CYANOCOBALAMIN 500 MCG TABLET PO (08:45)
[2022-08-17] MEDS: ZINC SULFATE 220 MG CAPSULE PO (08:46)
[2022-08-17] MEDS: MINERAL OIL/WHITE PETROLATUM OINTMENT 1 APPLIC EACH EYE ×2 (08:46→22:12)
--- NOTE | 2022-08-17 10:10 | PM.PNNEP ---
Progress Note: A&P Assessment and Plan (1) End stage renal disease: Code(s): N18.6 - End stage renal disease Status: Chronic Assessment and Plan: the patient has end-stage renal disease. He is on peritoneal dialysis. The patient has peritonitis. the cell count dropped from 2600 to 223. culture still pending. Continue vanco and Fortaz. He got vancomycin on the . Due for more vancomycin on Thursday. (2) Erythropoietin deficiency anemia: Code(s): D63.1 - Anemia in chronic kidney disease Status: Chronic Assessment and Plan: His hemoglobin is good right now. hemoglobin came down some With all this and is now 9.8. Will recheck this. (3) WILMER (renal osteodystrophy): Code(s): N25.0 - Renal osteodystrophy Status: Acute Assessment and Plan: Phosphorus level is good at 3.0 (4) Tobacco abuse: Code(s): Z72.0 - Tobacco use Status: Chronic Assessment and Plan: he was encouraged to quit. (5) Hypertension: Qualifiers: Hypertension type: unspecified Qualified Code(s): I10 - Essential (primary) hypertension Code(s): I10 - Essential (primary) hypertension Status: Chronic Assessment and Plan: Blood pressure was extremely high in the emergency room. A blood pressure ranging with a systolic between 110 and 130. All BP meds have been discontinued. (6) COPD (chronic obstructive pulmonary disease): Qualifiers: COPD type: unspecified COPD Qualified Code(s): J44.9 - Chronic obstructive pulmonary disease, unspecified Code(s): J44.9 - Chronic obstructive pulmonary disease, unspecified Status: Chronic Assessment and Plan: the patient has COPD, likely from cigarette use. 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 Discussed at length with Dr. Ontiveros Subjective Date/time seen: 08/17/22 10:10 Interval history: patient is in the ICU on the ventilator. He is sedated. Exam Narrative: WDWN on the ventilator and sedated in NAD skin no rash head ncat lungs Coarse bilaterally cor reg no rub or gallop abd BS+ Soft and nontender ext no edema. Objective Data Vital Signs Vital Signs: Vital Signs - 24 hr 08/16/22 12:00 08/16/22 12:57 08/16/22 12:00 Temperature 37.1 C Pulse Rate 95 95 Respiratory Rate 16 16 Blood Pressure 117/79 Pulse Oximetry 100 Oxygen Delivery Fraction of Inspired Oxygen 40 08/16/22 12:00 08/16/22 13:57 08/16/22 12:00 Temperature Pulse Rate 93 94 Respiratory Rate 16 Blood Pressure Pulse Oximetry 100 100 Oxygen Delivery Mechanical Ventilation Mechanical Ventilation Fraction of Inspired Oxygen 40 40 08/16/22 12:00 08/16/22 14:00 08/16/22 14:00 Temperature Pulse Rate 94 79 79 Respiratory Rate 16 16 16 Blood Pressure Pulse Oximetry Oxygen Delivery Fraction of Inspired Oxygen 08/16/22 12:00 08/16/22 14:00 08/16/22 14:00 Temperature 37.3 C Pulse Rate 94 89 93 Respiratory Rate 16 Blood Pressure 108/79 Pulse Oximetry 98 Oxygen Delivery Fraction of Inspired Oxygen 08/16/22 16:00 08/16/22 16:52 08/16/22 16:50 Temperature 37.1 C 37.1 C Pulse Rate 88 81 80 Respiratory Rate 16 16 Blood Pressure 111/75 125/75 Pulse Oximetry 100 100 100 Oxygen Delivery Mechanical Ventilation Mechanical Ventilation Fraction of Inspired Oxygen 30 08/16/22 16:00 08/16/22 16:00 08/16/22 16:00 Temperature Pulse Rate 88 Respiratory Rate 16 Blood Pressure Pulse Oximetry 100 Oxygen Delivery Mechanical Ventilation Fraction of Inspired Oxygen 30 30 08/16/22 16:00 08/16/22 16:00
--- NOTE | 2022-08-17 10:45 | WPDINTPN ---
Progress Note: A&P Assessment and Plan (1) Acute respiratory failure: Code(s): J96.00 - Acute respiratory failure, unspecified whether with hypoxia or hypercapnia Status: Acute Assessment and Plan: Acute respiratory failure, patient was intubated on 08/16/2022 in early hours -patient was found to be in respiratory distress, altered mental status, unable to protect his airway -respiratory failure likely related to mental status issues and or infectious cause/severe sepsis -patient currently on CMV mode of ventilation, peep of 5, 30% FiO2, -ABGs and chest x-ray reviewed, increased pulmonary vascular congestion infiltrates -continue Xopenex and Atrovent -patient is sedated with fentanyl Versed infusion, maintain RASS of 0--2, daily sedation vacation (2) Peritonitis: Code(s): K65.9 - Peritonitis, unspecified Status: Acute Assessment and Plan: Patient presented to the ED on 08/14/2022 with complains of diffuse abdominal pain x1 week. Paracentesis revealed peritonitis, and peritoneal fluid growing gram-positive cocci -patient started on intraperitoneal ceftazidime and IV vancomycin (08/14) -repeat peritoneal fluid analysis shows improvement in the white blood cells, more clear and colorless. -status post albumin x4 doses (3) Severe sepsis: Code(s): A41.9 - Sepsis, unspecified organism; R65.20 - Severe sepsis without septic shock Status: Acute Assessment and Plan: Patient with severe sepsis, leukocytosis, lactic acidosis, hypotension, acute respiratory failure, peritonitis -lactic acid has normalized, -hemodynamically stable, not requiring vasopressors at this time -antibiotics as above (4) Ischemic stroke: Code(s): I63.9 - Cerebral infarction, unspecified Status: Acute Assessment and Plan: Patient with ischemic stroke 08/14/2022 CT brain showed old lacunar infarct, right caudate nucleus, no intracranial bleeding. 08/15/2022 MRI brain showed scattered small acute infarcts bilateral frontal and parietal lobes, loss of normal flow void noted to left carotid artery suggesting slow flow or thrombus noted. 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 Suggestion of either slow flow potentially occlusion of the right vertebral artery. 08/16: This morning patient was unable to follow commands on his right upper and lower extremity, right side was flaccid, he was withdrawing to pain on the right upper and lower extremity. 08/16 CT scan of the brain : Cerebral atherosclerosis and chronic small vessel ischemic changes of the cerebral white matter No intracranial mass lesion or hemorrhage, midline shift or mass effect effect Moderate cerebral volume loss Discussed with neurology, continue to monitor, no further interventions per neurologist (5) COPD (chronic obstructive pulmonary disease): Qualifiers: COPD type: unspecified COPD Qualified Code(s): J44.9 - Chronic obstructive pulmonary disease, unspecified Code(s): J44.9 - Chronic obstructive pulmonary disease, unspecified Status: Chronic Assessment and Plan: Continue bronchodilators, mechanical ventilation (6) End stage renal disease: Code(s): N18.6 - End stage renal disease Status: Chronic Assessment and Plan: Patient with end-stage renal disease on peritoneal dialysis -nephrology following the patient -monitor renal function, electrolytes and urine output as he does make a little urine (7) Hypertension: Qualifiers: Hypertension type: unspecified Qualified Code(s): I10 - Essential (primary) hypertension Code(s): I10 - Essential (primary) hypertension Status: Chronic Assessment and Plan: Patient with history of essential hypertension, according to the bedside nurse, patient's blood pressures have been labile overnight with swings to highs and lows.
--- NOTE | 2022-08-17 11:07 | P.PNINT_ITS ---
Progress Note: A&P Assessment and Plan (1) Acute respiratory failure: Code(s): J96.00 - Acute respiratory failure, unspecified whether with hypoxia or hypercapnia Status: Acute Assessment and Plan: Acute respiratory failure, patient was intubated on 08/16/2022 in early hours -patient was found to be in respiratory distress, altered mental status, unable to protect his airway -respiratory failure likely related to mental status issues and or infectious cause/severe sepsis -patient currently on CMV mode of ventilation, peep of 5, 30% FiO2, -ABGs and chest x-ray reviewed, increased pulmonary vascular congestion infiltrates -continue Xopenex and Atrovent -patient is sedated with fentanyl Versed infusion, maintain RASS of 0--2, daily sedation vacation (2) Peritonitis: Code(s): K65.9 - Peritonitis, unspecified Status: Acute Assessment and Plan: Patient presented to the ED on 08/14/2022 with complains of diffuse abdominal pain x1 week. Paracentesis revealed peritonitis, and peritoneal fluid growing gram-positive cocci -patient started on intraperitoneal ceftazidime and IV vancomycin (08/14) -repeat peritoneal fluid analysis shows improvement in the white blood cells, more clear and colorless. -status post albumin x4 doses (3) Severe sepsis: Code(s): A41.9 - Sepsis, unspecified organism; R65.20 - Severe sepsis without septic shock Status: Acute Assessment and Plan: Patient with severe sepsis, leukocytosis, lactic acidosis, hypotension, acute respiratory failure, peritonitis -lactic acid has normalized, -hemodynamically stable, not requiring vasopressors at this time -antibiotics as above (4) Ischemic stroke: Code(s): I63.9 - Cerebral infarction, unspecified Status: Acute Assessment and Plan: Patient with ischemic stroke 08/14/2022 CT brain showed old lacunar infarct, right caudate nucleus, no intracranial bleeding. 08/15/2022 MRI brain showed scattered small acute infarcts bilateral frontal and parietal lobes, loss of normal flow void noted to left carotid artery suggesting slow flow or thrombus noted. 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 Suggestion of either slow flow potentially occlusion of the right vertebral artery. 08/16: This morning patient was unable to follow commands on his right upper and lower extremity, right side was flaccid, he was withdrawing to pain on the right upper and lower extremity. 08/16 CT scan of the brain : Cerebral atherosclerosis and chronic small vessel ischemic changes of the cerebral white matter No intracranial mass lesion or hemorrhage, midline shift or mass effect effect Moderate cerebral volume loss Discussed with neurology, continue to monitor, no further interventions per neurologist (5) COPD (chronic obstructive pulmonary disease): Qualifiers: COPD type: unspecified COPD Qualified Code(s): J44.9 - Chronic obstructive pulmonary disease, unspecified Code(s): J44.9 - Chronic obstructive pulmonary disease, unspecified Status: Chronic Assessment and Plan: Continue bronchodilators, mechanical ventilation (6) End stage renal disease: Code(s): N18.6 - End stage renal disease Status: Chronic Assessment and Plan: Patient with end-stage renal disease on peritoneal dialysis -nephrology following the patient -monitor renal function, electrolytes and urine output as he does make a little urine (7) Hypertension: Qualifiers: Hypertension ty
--- NOTE | 2022-08-17 11:35 | PM.IMPN ---
Progress Note: A&P Assessment and Plan (1) Acute respiratory failure: Code(s): J96.00 - Acute respiratory failure, unspecified whether with hypoxia or hypercapnia Status: Acute Assessment and Plan: Acute respiratory failure, patient is currently intubated (2) Peritonitis: Code(s): K65.9 - Peritonitis, unspecified Status: Acute Assessment and Plan: continue IV antibiotics. (3) Severe sepsis: Code(s): A41.9 - Sepsis, unspecified organism; R65.20 - Severe sepsis without septic shock Status: Acute Assessment and Plan: Secondary to peritonitis. (4) Ischemic stroke: Code(s): I63.9 - Cerebral infarction, unspecified Status: Acute Assessment and Plan: CT scan of the brain : Cerebral atherosclerosis and chronic small vessel ischemic changes of the cerebral white matter No intracranial mass lesion or hemorrhage, midline shift or mass effect effect Moderate cerebral volume loss Discussed with neurology, continue to monitor, no further interventions per neurologist (5) COPD (chronic obstructive pulmonary disease): Qualifiers: COPD type: unspecified COPD Qualified Code(s): J44.9 - Chronic obstructive pulmonary disease, unspecified Code(s): J44.9 - Chronic obstructive pulmonary disease, unspecified Status: Chronic Assessment and Plan: Continue bronchodilators, mechanical ventilation (6) End stage renal disease: Code(s): N18.6 - End stage renal disease Status: Chronic Assessment and Plan: Patient with end-stage renal disease on peritoneal dialysis -nephrology following the patient -monitor renal function, electrolytes and urine output as he does make a little urine (7) Hypertension: Qualifiers: Hypertension type: unspecified Qualified Code(s): I10 - Essential (primary) hypertension Code(s): I10 - Essential (primary) hypertension Status: Chronic Assessment and Plan: Monitor blood pressu Subjective Date/time seen: 08/17/22 11:35 intubated Exam Narrative: General: Intubated and sedated in no distress HEENT:? Pupils equal and reactive, sclera is clear, ETT in place Neck:? Supple Respiratory:? Coarse breath sounds bilateral lower lung zones, adequate air entry Cardiac:? S1-S2 normal, regular rate and rhythm Abdomen:? Abdomen is distended, soft, tympanic on percussion, hypoactive bowel sounds Extremities:? Trace edema palpable pedal pulses Neuro:? Patient is intubated, sedated, opens his eyes, follows commands in his right left upper and lower extremity. Right upper extremity is flaccid, he does not follow commands in the right upper extremity or lower extremity. Patient does withdraw to pain in the right lower extremity Skin:? No mottling of the skin was noted this morning Psych:? Unable to assess this time Objective Data Vital Signs Vital Signs: Vital Signs - 24 hr 08/16/22 12:57 08/16/22 13:57 08/16/22 14:00 Temperature Pulse Rate 95 93 79 Respiratory Rate 16 16 Blood Pressure Pulse Oximetry 100 Oxygen Delivery Mechanical Ventilation Fraction of Inspired Oxygen 40 08/16/22 14:00 08/16/22 14:00 08/16/22 14:00 Temperature 99.1 F Pulse Rate 79 89 93 Respiratory Rate 16 16 Blood Pressure 108/79 Pulse Oximetry 98 Oxygen Delivery Fraction of Inspired Oxygen 08/16/22 16:00 08/16/22 16:52 08/16/22 16:50 Temperature 98.7 F 98.7 F Pulse Rate 88 81 80 Respiratory Rate 16 16 Blood Pressure 111/75 125/75 Pulse Oximetry 100 100 100 Oxygen Delivery Mechanical Ventilation Mechanical Ventilation Fraction of Inspired Oxygen 30 08/16/22 16:00 08/16/22 16:00 08/16/22 16:00 Temperature Pulse Rate 88 Respiratory Rate 16 Blood Pressure Pulse Oximetry 100 Oxygen Delivery Mechanical Ventilation Fraction of Inspired Oxygen 30 30 08/16/22 16:00 08/16/22 16:00 08/16/22 18:00 Temperature Pulse
[2022-08-17 11:51] LABS: Glucose Point of Care 105 mg/dl (65-105)
[2022-08-17 18:04] LABS: Glucose Point of Care 97 mg/dl (65-105)
[2022-08-17 23:54] LABS: Glucose Point of Care 152 mg/dl (65-105)
[2022-08-18] VITALS (43 sets, daily range): BP systolic 113–175; BP diastolic 74–93; PULSE 79–128; RESP 14–26; TEMP 36.8–37.7; O2SAT 95–100; BMI 24.5
[2022-08-18] MEDS: LEVALBUTEROL NEB 1.25 MG/3 ML 0.63 MG INHALATION ×4 (02:30→20:53)
[2022-08-18] MEDS: IPRATROPIUM BR 0.02% INH SOLN 0.5 MG/2.5 ML VIAL INHALATION ×4 (02:31→20:54)
[2022-08-18] MEDS: MIDAZOLAM 100MG/NS 100ML(*CRX) 100 MG/100 ML BAG IV CONT (05:07)
[2022-08-18 05:16] LABS: Alveolar/Arterial O2 Gradient 78.5 mmHg; Carboxyhemoglobin 0.3 % THb (0-2.0); Fractional Inspired Oxygen 30 %; HCO3 ABG 29.6 mEq/l (22.0-26.0); Methemoglobin ABG 0.2 %THb (0-1.5); Oxygen Content ABG 16.4 %vol (16.0-22.0); Oxygen Saturation ABG 96.7 % (95.0-100.0); Oxyhemoglobin 95.3 % THb (90.0-100.0); PCO2 ABG 43.3 mmHg (35.0-45.0); PO2 ABG 84.5 mmHg (80.0-100.0); PO2 FiO2 Ratio Arterial Blood 2.82 %; Reduced Hemoglobin 4.2 %THb (0-5.0); Total Hemoglobin 12.2 g/dL (12.0-18.0); pH ABG 7.452 (7.350-7.450)
[2022-08-18] MEDS: CENTRAL LINE FLUSH 10 ML IV PUSH ×3 (05:20→20:45)
[2022-08-18 05:21] LABS: Arterial Blood Gas Vent Mode CMV; Arterial Blood Gas Ventilator rate 14 /MIN; Device VENTILATOR; Modified Allen's Test Pass; Site Drawn RIGHT RADIAL
[2022-08-18] MEDS: HEPARIN SODIUM 5,000 UNITS/ML VIAL 5000 UNITS SUB-Q ×3 (05:21→21:22)
[2022-08-18 05:22] LABS: Arterial Blood Gas PEEP 5 cmH2O; Arterial Blood Gas Tidal Volume 400 ml
[2022-08-18 05:26] LABS: Glucose Point of Care 126 mg/dl (65-105)
--- NOTE | 2022-08-18 07:49 | PCOTNOTE ---
OT evaluation orders cancelled. Pt. currently intubated. Re-order OT services when pt. medically stable.
--- NOTE | 2022-08-18 07:49 | PCPTNOTE ---
Pt. is currently intubated and not medically appropriate at this time.
[2022-08-18] MEDS: CHOLECALCIFEROL 1,000 UNITS TABLET 5000 UNITS PO (08:08)
[2022-08-18] MEDS: PANTOPRAZOLE SODIUM IV 40 MG VIAL IV PUSH (08:09)
[2022-08-18] MEDS: ATORVASTATIN 20 MG TABLET PO (08:09)
[2022-08-18] MEDS: ZINC SULFATE 220 MG CAPSULE PO (08:09)
[2022-08-18] MEDS: ASPIRIN 81 MG CHEWABLE TABLET PO (08:09)
[2022-08-18] MEDS: CLOPIDOGREL BISULFATE 75 MG TABLET PO (08:09)
[2022-08-18] MEDS: buPROPion HCL XL (24 HR) 150 MG TABCR PO ×2 (08:09→14:24)
[2022-08-18] MEDS: ASCORBIC ACID 250 MG TABLET PO (08:09)
[2022-08-18] MEDS: MINERAL OIL/WHITE PETROLATUM OINTMENT 1 APPLIC EACH EYE ×2 (08:09→20:45)
[2022-08-18] MEDS: CYANOCOBALAMIN 500 MCG TABLET PO (08:09)
[2022-08-18 08:14] LABS: Basophils Absolute Auto 0.1 K/mm3 (0.0-0.1); Basophils Percent Auto 0.3 % (0.2-1.2); Eosinophils Absolute Auto 0.4 K/mm3 (0-0.3); Eosinophils Percent Auto 2.4 % (0-4.4); Hematocrit 34.2 % (42.0-52.0); Hemoglobin 10.7 g/dL (14.0-18.0); Immature Granulocyte Absolute 0.42 K/mm3 (0.00-0.031); Immature Granulocyte Percent A 2.5 % (0-0.5); Lymphocytes Absolute Auto 1.47 K/mm3 (0.9-3.2); Lymphocytes Percent Auto 8.8 % (18.3-44.2); Mean Corpuscular HGB Conc 31.3 g/dl (32-36); Mean Corpuscular Hemoglobin 30.9 pg (26-34); Mean Corpuscular Volume 98.8 fl (80-100); Mean Platelet Volume 9.8 fl (7.4-10.4); Monocytes Absolute Auto 0.8 K/mm3 (0.1-0.6); Monocytes Percent Auto 4.6 % (2.6-8.5); Neutrophils Absolute Auto 13.6 K/mm3 (1.3-6.7); Neutrophils Percent Auto 81.4 % (45.5-73.1); Platelet Count Result 297 k/mm3 (150-375); Red Blood Count 3.46 M/mm3 (4.6-6.20); Red Cell Distribution Width 14.1 % (11.5-14.5); White Blood Count 16.7 K/mm3 (4.5-10.0)
[2022-08-18 08:19] LABS: Alanine Aminotransferase 27 U/L (6-50); Albumin Level 3.5 g/dL (3.5-5.1); Alkaline Phosphatase 120 U/L (38-126); Anion Gap 12 mmol/L (8-16); Aspartate Amino Transferase 39 U/L (17-59); Bilirubin,Total 0.6 mg/dL (0.2-1.3); Blood Urea Nitrogen 25 mg/dL (9-20); Calcium 8.5 mg/dL (8.4-10.2); Carbon Dioxide 30 mmol/L (22-30); Chloride 95 mmol/L (98-107); Estimated CRCL calculation 11 ml/min; Estimated Glomerular Filt Rate 10; Glucose 146 mg/dL (65-110); Magnesium 2.1 mg/dL (1.6-2.3); Phosphorus 4.1 mg/dL (2.5-4.5); Sodium 137 mmol/L (137-145)
--- NOTE | 2022-08-18 09:20 | WPDINTPN ---
Progress Note: A&P Assessment and Plan (1) Acute respiratory failure: Code(s): J96.00 - Acute respiratory failure, unspecified whether with hypoxia or hypercapnia Status: Acute Assessment and Plan: Acute respiratory failure, patient was intubated on 08/16/2022 in early hours -patient was found to be in respiratory distress, altered mental status, unable to protect his airway -respiratory failure likely related to mental status issues and or infectious cause/severe sepsis -patient currently on CMV mode of ventilation, peep of 5, 30% FiO2, -ABGs reviewed, -08/18 CXR: . Endotracheal tube tip in the right mainstem bronchus a couple millimeter below the level of the shayy. Recommend withdrawal by 2 cm. Findings were discussed with Cesilia Messina, the nurse caring for the patient, at 7:30 AM. ?Persistent opacities in the bilateral lower lung zones, left greater than right which could represent atelectasis and/or pneumonia possibly with associated small left pleural effusion. -ET tube has been pulled out 3 cm -continue Xopenex and Atrovent -patient is sedated with fentanyl Versed infusion, maintain RASS of 0--2, daily sedation vacation, have asked the bedside RN to decrease the sedation to evaluate patient's neurological status (2) Peritonitis: Code(s): K65.9 - Peritonitis, unspecified Status: Acute Assessment and Plan: Patient presented to the ED on 08/14/2022 with complains of diffuse abdominal pain x1 week. Paracentesis revealed peritonitis, and peritoneal fluid growing gram-positive cocci -patient started on intraperitoneal ceftazidime and IV vancomycin (08/14) -repeat peritoneal fluid analysis shows improvement in the white blood cells, more clear and colorless. -status post albumin x4 doses -WBC trending down (3) Severe sepsis: Code(s): A41.9 - Sepsis, unspecified organism; R65.20 - Severe sepsis without septic shock Status: Acute Assessment and Plan: Patient with severe sepsis, leukocytosis, lactic acidosis, hypotension, acute respiratory failure, peritonitis -lactic acid has normalized, -hemodynamically stable, not requiring vasopressors at this time -antibiotics as above (4) Ischemic stroke: Code(s): I63.9 - Cerebral infarction, unspecified Status: Acute Assessment and Plan: Patient with ischemic stroke 08/14/2022 CT brain showed old lacunar infarct, right caudate nucleus, no intracranial bleeding. 08/15/2022 MRI brain showed scattered small acute infarcts bilateral frontal and parietal lobes, loss of normal flow void noted to left carotid artery suggesting slow flow or thrombus noted. 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 Suggestion of either slow flow potentially occlusion of the right vertebral artery. 08/16: This morning patient was unable to follow commands on his right upper and lower extremity, right side was flaccid, he was withdrawing to pain on the right upper and lower extremity. 08/16 CT scan of the brain : Cerebral atherosclerosis and chronic small vessel ischemic changes of the cerebral white matter No intracranial mass lesion or hemorrhage, midline shift or mass effect effect Moderate cerebral volume loss Discussed with neurology, continue to monitor, no further interventions per neurologist (5) COPD (chronic obstructive pulmonary disease): Qualifiers: COPD type: unspecified COPD Qualified Code(s): J44.9 - Chronic obstructive pulmonary disease, unspecified Code(s): J44.9 - Chronic obstructive pulmonary disease, unspecified Status: Chronic Assessment and Plan: Continue bronchodilators, mechanical ventilation (6) End stage renal disease: Code(s): N18.6 - End stage renal disease Status: Chronic Assessment and Plan: Patient with end-stage renal disease on peritoneal dialysis -nephrology followin
[2022-08-18] MEDS: POTASSIUM CHLORIDE 20 MEQ PACKET (FOR LIQUID) 40 MEQ FEED TUBE (10:29)
--- NOTE | 2022-08-18 11:41 | P.PNNP_ITS ---
Progress Note: A&P Assessment and Plan (1) End stage renal disease: Code(s): N18.6 - End stage renal disease Status: Chronic Assessment and Plan: * continue nightly peritoneal dialysis * follow electrolytes, volume status and clearance * adjust PD Rx given limited ultrafiltration in the last 24 hours (2) Peritonitis: Code(s): K65.9 - Peritonitis, unspecified Status: Acute Assessment and Plan: * as evidenced by symptoms and PD fluid cell count on admission * PD fluid culture results noted * d/c IP antibiotics and continue IV vancomycin * repeat PD fluid cell count improving (3) Acute respiratory failure: Code(s): J96.00 - Acute respiratory failure, unspecified whether with hypoxia or hypercapnia Status: Acute Assessment and Plan: * intubated (08/16/22) due to respiratory distress, altered mental status and inability to protect his airway * further complicated by COPD and ongoing smoking * continue ventilator support * continue bronchodilators * weaning sedation to further evaluate neurological status (4) Ischemic stroke: Code(s): I63.9 - Cerebral infarction, unspecified Status: Acute Assessment and Plan: * imaging to date consistent with stroke * 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 Subjective Date/time seen: 08/18/22 11:41 Chart reviewed -- assuming care from Dr. Sesay; tolerated peritoneal dialysis treatment overnight but ultrafiltration was quite limited for some reason; remains intubated and sedated at the time of my visit; remains hemodynamically stable; no acute issues/events overnight or earlier this morning. Exam Narrative: General: WD/WN male intubated/sedated and on ventilator Heart: normal S1 and S2; no rub Lungs: coarse breath sounds Abdomen: soft, nontender, nondistended, positive bowel sounds Extremities: no cyanosis or clubbing; no edema Skin: warm and dry Objective Data Vital Signs Vital Signs: Vital Signs Temp Pulse Resp BP Pulse Ox O2 Del Method FiO2 08/18/22 10:52 94 98 Mechanical Ventilation 30 08/18/22 10:27 95 14 08/18/22 10:27 93 14 08/18/22 10:00 37.7 C H 94 16 126/80 99 08/18/22 10:00 94 08/18/22 08:00 98 Mechanical Ventilation 30 08/18/22 08:00 89 08/18/22 07:50 37.7 C H 87 14 113/74 08/18/22 08:17 91 15 08/18/22 08:17 91 15 08/18/22 08:00 37.6 C 92 18 128/78 99 08/18/22 08:00 30 08/18/22 08:02 91 98 Mechanical Ventilation 30 08/18/22 07:53 91 15 08/18/22 0
--- NOTE | 2022-08-18 11:41 | PM.PNNEP ---
Progress Note: A&P Assessment and Plan (1) End stage renal disease: Code(s): N18.6 - End stage renal disease Status: Chronic Assessment and Plan: continue nightly peritoneal dialysis follow electrolytes, volume status and clearance adjust PD Rx given limited ultrafiltration in the last 24 hours (2) Peritonitis: Code(s): K65.9 - Peritonitis, unspecified Status: Acute Assessment and Plan: as evidenced by symptoms and PD fluid cell count on admission PD fluid culture results noted d/c IP antibiotics and continue IV vancomycin repeat PD fluid cell count improving (3) Acute respiratory failure: Code(s): J96.00 - Acute respiratory failure, unspecified whether with hypoxia or hypercapnia Status: Acute Assessment and Plan: intubated (08/16/22) due to respiratory distress, altered mental status and inability to protect his airway further complicated by COPD and ongoing smoking continue ventilator support continue bronchodilators weaning sedation to further evaluate neurological status (4) Ischemic stroke: Code(s): I63.9 - Cerebral infarction, unspecified Status: Acute Assessment and Plan: imaging to date consistent with stroke carotid dopplers showing a left carotid occlusion and right vertebral artery occlusion wean sedation to better evaluate neurological status (5) Erythropoietin deficiency anemia: Code(s): D63.1 - Anemia in chronic kidney disease Status: Chronic Assessment and Plan: due to ESRD follow trend of H/H holding Epogen at this time (6) Hypertension: Qualifiers: Hypertension type: unspecified Qualified Code(s): I10 - Essential (primary) hypertension Code(s): I10 - Essential (primary) hypertension Status: Chronic Assessment and Plan: blood pressure was extremely high on presentation reasonable control at this time follow trend of hemodynmics Will continue to follow. Subjective Date/time seen: 08/18/22 11:41 Chart reviewed -- assuming care from Dr. Sesay; tolerated peritoneal dialysis treatment overnight but ultrafiltration was quite limited for some reason; remains intubated and sedated at the time of my visit; remains hemodynamically stable; no acute issues/events overnight or earlier this morning. Exam Narrative: General: WD/WN male intubated/sedated and on ventilator Heart: normal S1 and S2; no rub Lungs: coarse breath sounds Abdomen: soft, nontender, nondistended, positive bowel sounds Extremities: no cyanosis or clubbing; no edema Skin: warm and dry Objective Data Vital Signs Vital Signs: Vital Signs Temp Pulse Resp BP Pulse Ox O2 Del Method FiO2 08/18/22 10:52 94 98 Mechanical Ventilation 30 08/18/22 10:27 95 14 08/18/22 10:27 93 14 08/18/22 10:00 37.7 C H 94 16 126/80 99 08/18/22 10:00 94 08/18/22 08:00 98 Mechanical Ventilation 30 08/18/22 08:00 89 08/18/22 07:50 37.7 C H 87 14 113/74 08/18/22 08:17 91 15 08/18/22 08:17 91 15 08/18/22 08:00 37.6 C 92 18 128/78 99 08/18/22 08:00 30 08/18/22 08:02 91 98 Mechanical Ventilation 30 08/18/22 07:53 91 15 08/18/22 06:00 37.7 C H 87 14 113/74 98 08/18/22 06:00 89 08/18/22 05:09 88 14 08/18/22 05:07 88 14 08/18/22 05:07 89 14 08/18/22 04:56 89 99 Mechanical Ventilation 30 08/18/22 04:00 89 08/18/22 04:00 37.6 C H 90 14 119/78 99 08/18/22 03:23 30 08/18/22 03:21 88 16 99 Mechanical Ventilation 30 08/18/22 02:45 79 18 08/18/22 02:34 93 99 Mechanical Ventilation 30 08/18/22 02:33 80 18 08/17/22 20:30 84 18 08/18/22 02:00 37.6 C H 87 14 117/75 99 08/18/22 02:00 87 08/18/22 00:00 91 08/18/22 00:00 89 14 98 Mechanical Venti
[2022-08-18] MEDS: FUROSEMIDE INJ 40 MG/4 ML VIAL IV PUSH (11:59)
[2022-08-18 12:14] LABS: Glucose Point of Care 124 mg/dl (65-105)
[2022-08-18 16:47] LABS: Glucose Point of Care 135 mg/dl (65-105)
[2022-08-18 20:19] LABS: Glucose Peritoneal Fluid 244 mg/dL; LDH Peritoneal Fluid 176 U/L (<63); Total Protein Peritoneal Fluid <3.0 g/dL
[2022-08-19] VITALS (39 sets, daily range): BP systolic 77–171; BP diastolic 65–118; PULSE 93–133; RESP 17–24; TEMP 37.1–38.4; O2SAT 94–100
[2022-08-19 00:32] LABS: Glucose Point of Care 254 mg/dl (65-105)
[2022-08-19 00:33] LABS: Glucose Point of Care 268 mg/dl (65-105)
[2022-08-19] MEDS: INSULIN ASPART (*BKC) 100 UNITS/ML SUB-Q (00:34)
[2022-08-19] MEDS: LEVALBUTEROL NEB 1.25 MG/3 ML 0.63 MG INHALATION ×4 (02:21→20:00)
[2022-08-19] MEDS: IPRATROPIUM BR 0.02% INH SOLN 0.5 MG/2.5 ML VIAL INHALATION ×4 (02:21→20:00)
[2022-08-19] MEDS: CENTRAL LINE FLUSH 10 ML IV PUSH ×3 (05:54→20:50)
[2022-08-19] MEDS: HEPARIN SODIUM 5,000 UNITS/ML VIAL 5000 UNITS SUB-Q ×3 (05:54→20:49)
[2022-08-19] MEDS: METOCLOPRAMIDE HCL INJ 10 MG/2 ML VIAL IV PUSH ×3 (05:54→17:49)
[2022-08-19 06:01] LABS: Glucose Point of Care 178 mg/dl (65-105)
[2022-08-19 06:09] LABS: Alveolar/Arterial O2 Gradient 60.4 mmHg; Base Excess ABG 1.9 mEq/l (+/-2.0); Carboxyhemoglobin 0.8 % THb (0-2.0); Fractional Inspired Oxygen 30 %; Methemoglobin ABG 0.3 %THb (0-1.5); Oxygen Content ABG 16.6 %vol (16.0-22.0); Oxygen Saturation ABG 98.4 % (95.0-100.0); Oxyhemoglobin 96.7 % THb (90.0-100.0); PCO2 ABG 34.4 mmHg (35.0-45.0); PO2 ABG 113.1 mmHg (80.0-100.0); PO2 FiO2 Ratio Arterial Blood 3.77 %; Reduced Hemoglobin 2.2 %THb (0-5.0); Total Hemoglobin 12.1 g/dL (12.0-18.0)
[2022-08-19 06:15] LABS: Device VENTILATOR; Modified Allen's Test Pass; Site Drawn RIGHT RADIAL
[2022-08-19 06:16] LABS: Arterial Blood Gas PEEP 5 cmH2O; Arterial Blood Gas Tidal Volume 400 ml; Arterial Blood Gas Vent Mode CMV; Arterial Blood Gas Ventilator rate 14 /MIN
[2022-08-19 07:46] LABS: Basophils Absolute Auto 0.2 K/mm3 (0.0-0.1); Basophils Percent Auto 0.9 % (0.2-1.2); Eosinophils Absolute Auto 0.1 K/mm3 (0-0.3); Eosinophils Percent Auto 0.3 % (0-4.4); Hematocrit 37.3 % (42.0-52.0); Hemoglobin 11.6 g/dL (14.0-18.0); Immature Granulocyte Absolute 1.44 K/mm3 (0.00-0.031); Immature Granulocyte Percent A 7.7 % (0-0.5); Lymphocytes Absolute Auto 1.02 K/mm3 (0.9-3.2); Lymphocytes Percent Auto 5.5 % (18.3-44.2); Mean Corpuscular HGB Conc 31.1 g/dl (32-36); Mean Corpuscular Hemoglobin 30.8 pg (26-34); Mean Corpuscular Volume 98.9 fl (80-100); Mean Platelet Volume 9.8 fl (7.4-10.4); Monocytes Absolute Auto 0.7 K/mm3 (0.1-0.6); Monocytes Percent Auto 3.8 % (2.6-8.5); Neutrophils Absolute Auto 15.2 K/mm3 (1.3-6.7); Neutrophils Percent Auto 81.8 % (45.5-73.1); Nucleated Red Blood Cells Perc 0.1 % (0.0-0.2); Platelet Count Result 346 k/mm3 (150-375); Red Blood Count 3.77 M/mm3 (4.6-6.20); Red Cell Distribution Width 13.9 % (11.5-14.5); White Blood Count 18.6 K/mm3 (4.5-10.0)
[2022-08-19 07:54] LABS: Alanine Aminotransferase 96 U/L (6-50); Albumin Level 3.6 g/dL (3.5-5.1); Alkaline Phosphatase 146 U/L (38-126); Anion Gap 16 mmol/L (8-16); Aspartate Amino Transferase 128 U/L (17-59); Bilirubin,Total 0.5 mg/dL (0.2-1.3); Blood Urea Nitrogen 33 mg/dL (9-20); Calcium 8.8 mg/dL (8.4-10.2); Carbon Dioxide 29 mmol/L (22-30); Chloride 94 mmol/L (98-107); Estimated CRCL calculation 10 ml/min; Estimated Glomerular Filt Rate 9; Glucose 189 mg/dL (65-110); Magnesium 2.2 mg/dL (1.6-2.3); Phosphorus 3.9 mg/dL (2.5-4.5); Potassium 3.3 mmol/L (3.4-5.0); Sodium 139 mmol/L (137-145)
[2022-08-19 08:47] LABS: Platelet Estimate Adequate (Adequate)
[2022-08-19 08:48] LABS: Poikilocytosis 1+ (NORMAL)
[2022-08-19] MEDS: KCL 40 MEQ/WATER 100 ML 100 ML 25 ML IVPB (09:23)
[2022-08-19] MEDS: CHOLECALCIFEROL 1,000 UNITS TABLET 5000 UNITS PO (09:24)
[2022-08-19] MEDS: ASCORBIC ACID 250 MG TABLET PO (09:24)
[2022-08-19] MEDS: ASPIRIN 81 MG CHEWABLE TABLET PO (09:24)
[2022-08-19] MEDS: CLOPIDOGREL BISULFATE 75 MG TABLET PO (09:24)
[2022-08-19] MEDS: ATORVASTATIN 20 MG TABLET PO (09:24)
[2022-08-19] MEDS: MINERAL OIL/WHITE PETROLATUM OINTMENT 1 APPLIC EACH EYE ×2 (09:25→20:50)
[2022-08-19] MEDS: ZINC SULFATE 220 MG CAPSULE PO (09:25)
[2022-08-19] MEDS: CYANOCOBALAMIN 500 MCG TABLET PO (09:25)
[2022-08-19] MEDS: PANTOPRAZOLE SODIUM IV 40 MG VIAL IV PUSH (09:25)
[2022-08-19 09:37] LABS: Schistocytes None Seen (NORMAL)
[2022-08-19] MEDS: ACETAMINOPHEN 325 MG TABLET 650 MG PO (09:37)
--- NOTE | 2022-08-19 10:02 | P.PNNP_ITS ---
Progress Note: A&P Assessment and Plan (1) End stage renal disease: Code(s): N18.6 - End stage renal disease Status: Chronic Assessment and Plan: * continue nightly peritoneal dialysis * follow electrolytes, volume status and clearance * adjust PD Rx to maintain I/Os (2) Peritonitis: Code(s): K65.9 - Peritonitis, unspecified Status: Acute Assessment and Plan: * as evidenced by symptoms and PD fluid cell count on admission * PD fluid culture results noted * continue IV vancomycin - transition to IP vancomycin on discharge if needed * repeat PD fluid cell count improving (3) Acute respiratory failure: Code(s): J96.00 - Acute respiratory failure, unspecified whether with hypoxia or hypercapnia Status: Acute Assessment and Plan: * intubated (08/16/22) due to respiratory distress, altered mental status and inability to protect his airway * further complicated by COPD and ongoing smoking * continue ventilator support * continue bronchodilators * weaning sedation to further evaluate neurological status (4) Ischemic stroke: Code(s): I63.9 - Cerebral infarction, unspecified Status: Acute Assessment and Plan: * imaging to date consistent with stroke * carotid dopplers 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 Subjective Date/time seen: 08/19/22 10:02 Tolerated peritoneal dialysis treatment overnight with better ultrafiltration with adjustment in PD prescription; remains on ventilatory support but remains hemodynamically stable without the need for pressor therapy; significant OG output noted in the last 24 hours. Exam Narrative: General: WD/WN male intubated/sedated and on ventilator Heart: normal S1 and S2; no rub Lungs: coarse breath sounds Abdomen: soft, nontender, nondistended, positive bowel sounds Extremities: no cyanosis or clubbing; no edema Skin: warm and intact Objective Data Vital Signs Vital Signs: Vital Signs Temp Pulse Resp BP Pulse Ox O2 Del Method FiO2 08/19/22 09:37 38.4 C H 08/19/22 07:50 37.5 C 113 H 17 106/80 08/19/22 08:00 38.3 C H 119 H 18 90/74 L 95 08/19/22 08:00 30 08/19/22 08:00 119 H 18 95 Mechanical Ventilation 30 08/19/22 08:00 119 H 08/19/22 05:15 109 H 96 Mechanical Ventilation 30 08/19/22 06:00 37.5 C 113 H 17 106/80 94 08/19/22 06:00 114 H 08/19/22 05:25 115 H 24 H 08/19/22 04:37 120 H 22 H 08/19/22 04:37 118 H 20 08/19/22 04:00 37.8 C H 116 H 19 113/86 99 08/19/22 04:00 118 H 08/19
--- NOTE | 2022-08-19 10:02 | PM.PNNEP ---
Progress Note: A&P Assessment and Plan (1) End stage renal disease: Code(s): N18.6 - End stage renal disease Status: Chronic Assessment and Plan: continue nightly peritoneal dialysis follow electrolytes, volume status and clearance adjust PD Rx to maintain I/Os (2) Peritonitis: Code(s): K65.9 - Peritonitis, unspecified Status: Acute Assessment and Plan: as evidenced by symptoms and PD fluid cell count on admission PD fluid culture results noted continue IV vancomycin - transition to IP vancomycin on discharge if needed repeat PD fluid cell count improving (3) Acute respiratory failure: Code(s): J96.00 - Acute respiratory failure, unspecified whether with hypoxia or hypercapnia Status: Acute Assessment and Plan: intubated (08/16/22) due to respiratory distress, altered mental status and inability to protect his airway further complicated by COPD and ongoing smoking continue ventilator support continue bronchodilators weaning sedation to further evaluate neurological status (4) Ischemic stroke: Code(s): I63.9 - Cerebral infarction, unspecified Status: Acute Assessment and Plan: imaging to date consistent with stroke carotid dopplers showing a left carotid occlusion and right vertebral artery occlusion wean sedation to better evaluate neurological status (5) Erythropoietin deficiency anemia: Code(s): D63.1 - Anemia in chronic kidney disease Status: Chronic Assessment and Plan: due to ESRD follow trend of H/H holding Epogen at this time (6) Hypertension: Qualifiers: Hypertension type: unspecified Qualified Code(s): I10 - Essential (primary) hypertension Code(s): I10 - Essential (primary) hypertension Status: Chronic Assessment and Plan: blood pressure was extremely high on presentation reasonable control at this time follow trend of hemodynamics Will continue to follow. Subjective Date/time seen: 08/19/22 10:02 Tolerated peritoneal dialysis treatment overnight with better ultrafiltration with adjustment in PD prescription; remains on ventilatory support but remains hemodynamically stable without the need for pressor therapy; significant OG output noted in the last 24 hours. Exam Narrative: General: WD/WN male intubated/sedated and on ventilator Heart: normal S1 and S2; no rub Lungs: coarse breath sounds Abdomen: soft, nontender, nondistended, positive bowel sounds Extremities: no cyanosis or clubbing; no edema Skin: warm and intact Objective Data Vital Signs Vital Signs: Vital Signs Temp Pulse Resp BP Pulse Ox O2 Del Method FiO2 08/19/22 09:37 38.4 C H 08/19/22 07:50 37.5 C 113 H 17 106/80 08/19/22 08:00 38.3 C H 119 H 18 90/74 L 95 08/19/22 08:00 30 08/19/22 08:00 119 H 18 95 Mechanical Ventilation 30 08/19/22 08:00 119 H 08/19/22 05:15 109 H 96 Mechanical Ventilation 30 08/19/22 06:00 37.5 C 113 H 17 106/80 94 08/19/22 06:00 114 H 08/19/22 05:25 115 H 24 H 08/19/22 04:37 120 H 22 H 08/19/22 04:37 118 H 20 08/19/22 04:00 37.8 C H 116 H 19 113/86 99 08/19/22 04:00 118 H 08/19/22 03:41 109 H 17 94 Mechanical Ventilation 30 08/19/22 03:40 30 08/19/22 02:55 110 H 95 Mechanical Ventilation 30 08/19/22 02:00 37.3 C 109 H 22 H 97/77 L 96 08/19/22 02:00 110 H 08/19/22 02:23 110 H 21 H 08/19/22 00:00 110 H 08/19/22 00:00 37.1 C 113 H 22 H 117/75 94 08/19/22 00:00 30 08/19/22 00:00 112 H 22 H 94 Mechanical Ventilation 30 08/18/22 23:50 128 H 26 H 08/18/22 23:41 105 H 98 Mechanical Ventilation 30 08/18/22 23:24 107 H 116/87 08/18/22 22:29 125 H 24 H 08/18/22 22:00 36.8 C 116 H 21 H 175/88 H 95 08/18/22 22:00
--- NOTE | 2022-08-19 11:10 | WPDNEURCNPN ---
Assessment and Plan Assessment and plan (1) Ischemic stroke: Code(s): I63.9 - Cerebral infarction, unspecified Status: Acute (2) Right sided weakness: Code(s): R53.1 - Weakness Status: Acute (3) Acute respiratory failure: Code(s): J96.00 - Acute respiratory failure, unspecified whether with hypoxia or hypercapnia Status: Acute (4) Severe sepsis: Code(s): A41.9 - Sepsis, unspecified organism; R65.20 - Severe sepsis without septic shock Status: Acute Plan Mr. Ferrari is a 67 year old male with a history of COPD, HTN, ESRD, smoking who is currently admitted due to peritonitis/sepsis, complicated by respiratory failure. R sided weakness noted earlier during admission. MRI brain showed bilateral frontal and parietal infarcts, which is concerning for embolic stroke of undetermined source. Surface echo w/ bubble study was unremarkable. Carotid Doppler showed occlusion of L ICA and <50% stenosis of R ICA, which could explain L hemispheric infarcts, but not bilateral involvement. - Continue ASA, Plavix, and Lipitor for carotid disease - If able, recommend CTA brain/neck - Recommend transesophageal echocardiogram +/- Loop recorder for further evaluation of cardioembolic cause of stroke Consult date: 08/19/22 Time Seen: 11:10 Reason for consult: Stroke HPI: Rony Ferrari is a 67 year old male with a history of HTN, ESRD, COPD, chronic smoking who presented on 08/14 due to abdominal pain. He also reported a transient episode of RU weakness that self-resolved within 20 minutes. He was on daily aspirin prior to admission. CT head showed old lacunar infarct in the right caudate. He had leukocytosis, and given the abdominal pain, there was concern for peritonitis. Patient was started on antibiotics and subsequently admitted. On 08/15 he had an MRI brain that showed bilateral frontal and parietal infarcts. carotid Doppler showed complete occlusion of the left ICA and <50% stenosis of right ICA, as well as possible slow void/potential occlusion of the right vertebral artery. CTA was not obtained presumably due to patient's renal function. He developed respiratory distress, was intubated, and subsequently transferred to the ICU. On 08/16 he was noted to have R sided weakness. Repeat CT head showed no acute change. Patient remains intubated and sedated. He is currently on ASA 81mg, Plavix 75mg, and Lipitor 20mg daily. Review of Systems Review of Systems: ROS unobtainable: Yes unobtainable due to endotracheal tube and unobtainable due to medical condition PMFSH Past Medical History Medical History CKD (chronic kidney disease) stage V requiring chronic dialysis Colon cancer screening COPD (chronic obstructive pulmonary disease) End stage renal disease Peritoneal dialysis daily Erythropoietin deficiency anemia History of CVA (cerebrovascular accident) As per CT scan on 08/14/2022 shows old infarction Hypertension Peritoneal dialysis catheter in place WILMER (renal osteodystrophy) Tobacco abuse Surgical History Surgical History H/O inguinal hernia repair Family History Family History Mother Hypertension Cerebrovascular accident Father Lung cancer Sibling Myocardial infarct Social History Social History Social History: The patient is single and has no children. The patient is down to smoking 4 cigarettes a day. Patient used to drink a beer a day but denies any alcohol currently. He denies any marijuana or illicit drugs. His brother is the durable power disability attorney for healthcare. 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 Code status full code Smoking packs per day: 0.25 Smoking cigarettes per day: 5.0 Years smoked
--- NOTE | 2022-08-19 11:11 | WPDINTPN ---
Progress Note: A&P Assessment and Plan (1) Acute respiratory failure: Code(s): J96.00 - Acute respiratory failure, unspecified whether with hypoxia or hypercapnia Status: Acute Assessment and Plan: Acute respiratory failure, patient was intubated on 08/16/2022 in early hours -patient was found to be in respiratory distress, altered mental status, unable to protect his airway -respiratory failure likely related to mental status issues and or infectious cause/severe sepsis -patient currently on CMV mode of ventilation, peep of 5, 30% FiO2, -ABGs reviewed, -chest CT reviewed -mild emphysema. Withdraw ET tube by 2 cm -continue Xopenex and Atrovent -patient is sedated with fentanyl Versed infusion. Sedation [facility] for sedation holiday (2) Peritonitis: Code(s): K65.9 - Peritonitis, unspecified Status: Acute Assessment and Plan: Patient presented to the ED on 08/14/2022 with complains of diffuse abdominal pain x1 week. Paracentesis revealed peritonitis, and peritoneal fluid growing gram-positive cocci -patient started on intraperitoneal ceftazidime and IV vancomycin (08/14) -repeat peritoneal fluid analysis shows improvement in the white blood cells, more clear and colorless. -status post albumin x4 doses -WBC trending down (3) Severe sepsis: Code(s): A41.9 - Sepsis, unspecified organism; R65.20 - Severe sepsis without septic shock Status: Acute Assessment and Plan: Patient with severe sepsis, leukocytosis, lactic acidosis, hypotension, acute respiratory failure, peritonitis -lactic acid has normalized, -hemodynamically improved and not requiring vasopressors at this time -antibiotics as above (4) Ischemic stroke: Code(s): I63.9 - Cerebral infarction, unspecified Status: Acute Assessment and Plan: Patient with ischemic stroke 08/14/2022 CT brain showed old lacunar infarct, right caudate nucleus, no intracranial bleeding. 08/15/2022 MRI brain showed scattered small acute infarcts bilateral frontal and parietal lobes, loss of normal flow void noted to left carotid artery suggesting slow flow or thrombus noted. 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 Suggestion of either slow flow potentially occlusion of the right vertebral artery. 08/16: This morning patient was unable to follow commands on his right upper and lower extremity, right side was flaccid, he was withdrawing to pain on the right upper and lower extremity. 08/16 CT scan of the brain : Cerebral atherosclerosis and chronic small vessel ischemic changes of the cerebral white matter No intracranial mass lesion or hemorrhage, midline shift or mass effect effect Moderate cerebral volume loss Neurology consult 08/16 echo did not show any shunt or thrombus Continue aspirin Plavix and statin (5) COPD (chronic obstructive pulmonary disease): Qualifiers: COPD type: unspecified COPD Qualified Code(s): J44.9 - Chronic obstructive pulmonary disease, unspecified Code(s): J44.9 - Chronic obstructive pulmonary disease, unspecified Status: Chronic Assessment and Plan: Continue bronchodilators, mechanical ventilation (6) End stage renal disease: Code(s): N18.6 - End stage renal disease Status: Chronic Assessment and Plan: Patient with end-stage renal disease on peritoneal dialysis -nephrology following the patient Daily peritoneal dialysis (7) Hypertension: Qualifiers: Hypertension type: unspecified Qualified Code(s): I10 - Essential (primary) hypertension Code(s): I10 - Essential (primary) hypertension Status: Chronic Assessment and Plan: Patient with history of essential hypertension but currently in controlled range Monitor (8) Ileus: Code(s): K56.7 - Ileus, unspecified Status: Acute Assessment and Plan: Jarek
--- NOTE | 2022-08-19 11:12 | PM.IMPN ---
Progress Note: A&P Assessment and Plan (1) Acute respiratory failure: Code(s): J96.00 - Acute respiratory failure, unspecified whether with hypoxia or hypercapnia Status: Acute Assessment and Plan: continue ventilatory support, managed per ICU. (2) Peritonitis: Code(s): K65.9 - Peritonitis, unspecified Status: Acute Assessment and Plan: Patient presented to the ED on 08/14/2022 with complains of diffuse abdominal pain x1 week. Paracentesis revealed peritonitis, and peritoneal fluid growing gram-positive cocci - Continue IV antibiotics - White blood cell count back up again today. (3) Severe sepsis: Code(s): A41.9 - Sepsis, unspecified organism; R65.20 - Severe sepsis without septic shock Status: Acute Assessment and Plan: Patient with severe sepsis, leukocytosis, lactic acidosis, hypotension, acute respiratory failure, peritonitis -lactic acid has normalized, -hemodynamically stable, not requiring vasopressors at this time -antibiotics as above (4) Ischemic stroke: Code(s): I63.9 - Cerebral infarction, unspecified Status: Acute Assessment and Plan: CT scan of the brain : Cerebral atherosclerosis and chronic small vessel ischemic changes of the cerebral white matter No intracranial mass lesion or hemorrhage, midline shift or mass effect effect Moderate cerebral volume loss MRI on August 15, 2022 did show small acute infarcts bilaterally in frontal and parietal lobes (5) COPD (chronic obstructive pulmonary disease): Qualifiers: COPD type: unspecified COPD Qualified Code(s): J44.9 - Chronic obstructive pulmonary disease, unspecified Code(s): J44.9 - Chronic obstructive pulmonary disease, unspecified Status: Chronic Assessment and Plan: Continue bronchodilators, mechanical ventilation (6) End stage renal disease: Code(s): N18.6 - End stage renal disease Status: Chronic Assessment and Plan: Per Nephrology (7) Hypertension: Qualifiers: Hypertension type: unspecified Qualified Code(s): I10 - Essential (primary) hypertension Code(s): I10 - Essential (primary) hypertension Status: Chronic Assessment and Plan: monitor blood pressure. Subjective Date/time seen: 08/19/22 11:12 intubated Exam Narrative: General: Intubated and sedated in no distress HEENT:? Pupils equal and reactive, sclera is clear, ETT in place Neck:? Supple Respiratory:? Coarse breath sounds bilateral lower lung zones, adequate air entry Cardiac:? S1-S2 normal, regular rate and rhythm Abdomen:? Abdomen is distended, soft, tympanic on percussion, hypoactive bowel sounds Extremities:? Trace edema palpable pedal pulses Neuro:? Patient is intubated, sedated, does not open his eyes this morning of follows simple commands Skin:? Skin lesions noted, otherwise warm and dry Psych:? Unable to assess this time Objective Data Vital Signs Vital Signs: Vital Signs - 24 hr 08/18/22 12:01 08/18/22 12:02 08/18/22 12:00 Temperature Pulse Rate 97 95 Respiratory Rate 16 15 Blood Pressure Pulse Oximetry Oxygen Delivery Fraction of Inspired Oxygen 30 08/18/22 12:00 08/18/22 12:00 08/18/22 12:00 Temperature 99.8 F H Pulse Rate 97 99 Respiratory Rate 16 Blood Pressure 134/84 Pulse Oximetry 98 98 Oxygen Delivery Mechanical Ventilation Fraction of Inspired Oxygen 30 08/18/22 14:00 08/18/22 14:00 08/18/22 14:19 Temperature 99.2 F Pulse Rate 101 H 101 H 102 H Respiratory Rate 16 16 Blood Pressure 154/93 H Pulse Oximetry 96 Oxygen Delivery Fraction of Inspired Oxygen 08/18/22 14:20 08/18/22 14:46 08/18/22 14:54 Temperature Pulse Rate 102 H 99 99 Respiratory Rate 16 14 Blood Pressure Pulse Oximetry 99 Oxygen Delivery Mechanical Ventilation Fraction of Inspired Oxygen 30 08/18/22 16:00 08/18/22 16:39 08/18/22 16:39 Tem
--- NOTE | 2022-08-19 11:22 | PCNFU ---
Nutrition Follow-Up Complete: Increased protein energy needs related to mechanical ventilation, sepsis as evidenced by need for full tube feeding Goal: Tolerate tube feeding at goal rate Patient has limited progress towards goal. We will continue current goal. Pt current nutrition is Nepro at 45 ml/hr. Last recorded weight is 66.3 kg, down from 68.9 kg. Bowel Motility: No BM reported. Labs Reviewed:Glu 189, BUN 33, Cr 6.2,K 3.3, Hct 37.3,Hgb 11.6 Meds Noted: Reglan, Zinc, Vit D, Vit C, B12, Protonix Skin: WNL Additional Notes: Patient remains on mechanical vent. Tube feedings currently on hold due to high residuals, Reglan started. PD overnight removed 2400 ml of fluid. When tube feedings restart recommending Nepro at 45 ml/hr, which will provide 1782 kcals/80 gms protein/827 ml water. Free water flush 30 ml q 4hours. Agree with diet orders. Monitoring labs, weights, tube feeding tolerance, plan of care, meds. Follow up Thursday and Thursday per policy.
[2022-08-19 11:53] LABS: Glucose Point of Care 152 mg/dl (65-105)
[2022-08-19 13:43] LABS: Albumin Peritoneal Fluid 0.1 g/dL
[2022-08-19] MEDS: dexmedeTOMIDine 400 MCG/100 ML 400 MCG/100 ML BAG IV CONT (14:50)
[2022-08-19 17:20] LABS: Glucose Point of Care 145 mg/dl (65-105)
--- NOTE | 2022-08-19 23:07 | PC.NURSE ---
Spoke with Dr. Fairbanks regarding hypotension, Okay to start Levophed.
[2022-08-19 23:48] LABS: Glucose Point of Care 185 mg/dl (65-105)
[2022-08-20] VITALS (50 sets, daily range): BP systolic 74–206; BP diastolic 56–94; PULSE 75–117; RESP 16–30; TEMP 37.2–37.7; O2SAT 93–98
[2022-08-20] MEDS: NOREPINEPHRINE 8 MG/D5W 250 ML 8 MG/250 ML BAG 9.38 MG IV CONT (00:17)
[2022-08-20] MEDS: LEVALBUTEROL NEB 1.25 MG/3 ML 0.63 MG INHALATION ×4 (02:46→20:00)
[2022-08-20] MEDS: IPRATROPIUM BR 0.02% INH SOLN 0.5 MG/2.5 ML VIAL INHALATION ×4 (02:46→20:00)
[2022-08-20] MEDS: dexmedeTOMIDine 400 MCG/100 ML 400 MCG/100 ML BAG 8.29 MCG IV CONT (03:43)
[2022-08-20 05:10] LABS: Alveolar/Arterial O2 Gradient 121.2 mmHg; Base Excess ABG 3.2 mEq/l (+/-2.0); Carboxyhemoglobin 0.3 % THb (0-2.0); Fractional Inspired Oxygen 30 %; HCO3 ABG 28.6 mEq/l (22.0-26.0); Methemoglobin ABG 0.3 %THb (0-1.5); Oxygen Content ABG 11.3 %vol (16.0-22.0); PCO2 ABG 47.2 mmHg (35.0-45.0); PO2 FiO2 Ratio Arterial Blood 1.24 %; Reduced Hemoglobin 30.6 %THb (0-5.0); Total Hemoglobin 11.7 g/dL (12.0-18.0); pH ABG 7.401 (7.350-7.450)
[2022-08-20] MEDS: HEPARIN SODIUM 5,000 UNITS/ML VIAL 5000 UNITS SUB-Q ×3 (05:22→20:36)
[2022-08-20] MEDS: CENTRAL LINE FLUSH 10 ML IV PUSH ×3 (05:22→20:36)
[2022-08-20 05:24] LABS: Hematocrit 32.6 % (42.0-52.0); Hemoglobin 10.4 g/dL (14.0-18.0); Mean Corpuscular HGB Conc 31.9 g/dl (32-36); Mean Corpuscular Hemoglobin 31.4 pg (26-34); Mean Corpuscular Volume 98.5 fl (80-100); Mean Platelet Volume 9.9 fl (7.4-10.4); Platelet Count Result 362 k/mm3 (150-375); Red Blood Count 3.31 M/mm3 (4.6-6.20); White Blood Count 24.7 K/mm3 (4.5-10.0)
[2022-08-20 05:32] LABS: Oxygen Saturation ABG 96.8 % (95.0-100.0); Oxyhemoglobin 95.2 % THb (90.0-100.0)
[2022-08-20 05:34] LABS: Site Drawn RIGHT RADIAL
[2022-08-20 05:35] LABS: Arterial Blood Gas PEEP 5 cmH2O; Arterial Blood Gas Tidal Volume 360 ml; Arterial Blood Gas Vent Mode CMV; Arterial Blood Gas Ventilator rate 14 /MIN; Device VENTILATOR; Modified Allen's Test Pass
[2022-08-20 05:44] LABS: Alanine Aminotransferase 105 U/L (6-50); Albumin Level 3.2 g/dL (3.5-5.1); Alkaline Phosphatase 173 U/L (38-126); Anion Gap 12 mmol/L (8-16); Anisocytosis 1+ (NORMAL); Aspartate Amino Transferase 142 U/L (17-59); Band Neutrophils Percent 4 % (0-6); Bilirubin,Total 0.5 mg/dL (0.2-1.3); Blood Urea Nitrogen 38 mg/dL (9-20); Calcium 8.5 mg/dL (8.4-10.2); Carbon Dioxide 28 mmol/L (22-30); Chloride 97 mmol/L (98-107); Eosinophils Absolute Manual 0.74 K/mm3 (0.02-0.5); Eosinophils Percent Manual 3 % (0-4); Estimated CRCL calculation 9 ml/min; Estimated Glomerular Filt Rate 8; Glucose 140 mg/dL (65-110); Lymphocytes Absolute Manual 2.47 K/mm3 (1.1-4.5); Magnesium 2.2 mg/dL (1.6-2.3); Monocytes Absolute Manual 0.49 K/mm3 (0.1-0.90); Monocytes Percent Manual 2 % (3-9); Neutrophils Absolute Manual 20.99 K/mm3 (1.3-6.7); Neutrophils Percent Manual 81 % (46-73); Ovalocytes 1+ (NORMAL); Phosphorus 4.7 mg/dL (2.5-4.5); Platelet Estimate Adequate (Adequate); Potassium 3.8 mmol/L (3.4-5.0); Schistocytes None Seen (NORMAL); Sodium 137 mmol/L (137-145); Total Cells Counted 100
[2022-08-20 06:12] LABS: Vancomycin Random 18.8 ug/mL (10-20)
[2022-08-20] MEDS: CLOPIDOGREL BISULFATE 75 MG TABLET PO (08:22)
[2022-08-20] MEDS: CHOLECALCIFEROL 1,000 UNITS TABLET 5000 UNITS PO (08:22)
[2022-08-20] MEDS: CYANOCOBALAMIN 500 MCG TABLET PO (08:23)
[2022-08-20] MEDS: ASCORBIC ACID 250 MG TABLET PO (08:23)
[2022-08-20] MEDS: ATORVASTATIN 20 MG TABLET PO (08:23)
[2022-08-20] MEDS: ZINC SULFATE 220 MG CAPSULE PO (08:23)
[2022-08-20] MEDS: ASPIRIN 81 MG CHEWABLE TABLET PO (08:24)
[2022-08-20] MEDS: MINERAL OIL/WHITE PETROLATUM OINTMENT 1 APPLIC EACH EYE ×2 (08:24→20:36)
[2022-08-20] MEDS: PANTOPRAZOLE SODIUM IV 40 MG VIAL IV PUSH (08:25)
--- NOTE | 2022-08-20 09:10 | WPDINTPN ---
Progress Note: A&P Assessment and Plan (1) Acute respiratory failure: Code(s): J96.00 - Acute respiratory failure, unspecified whether with hypoxia or hypercapnia Status: Acute Assessment and Plan: Acute respiratory failure, patient was intubated on 08/16/2022 in early hours -patient was found to be in respiratory distress, altered mental status, unable to protect his airway -respiratory failure likely related to mental status issues and or infectious cause/severe sepsis -patient currently on CMV mode of ventilation, peep of 5, 30% FiO2, -ABGs reviewed, -chest CT reviewed -mild emphysema. -chest x-ray done this morning reviewed -continue Xopenex and Atrovent -patient is sedated with Precedex now. Off Versed and fentanyl -not a candidate for weaning trial at this time due to mental status (2) Peritonitis: Code(s): K65.9 - Peritonitis, unspecified Status: Acute Assessment and Plan: Patient presented to the ED on 08/14/2022 with complains of diffuse abdominal pain x1 week. Paracentesis revealed peritonitis, and peritoneal fluid grew Staph epidermiis -patient was initially started on intraperitoneal ceftazidime and IV vancomycin (08/14) -currently on IV vancomycin and IV cefepime -repeat peritoneal fluid analysis shows improvement in the white blood cells, more clear and colorless. -status post albumin x4 doses (3) Severe sepsis: Code(s): A41.9 - Sepsis, unspecified organism; R65.20 - Severe sepsis without septic shock Status: Acute Assessment and Plan: Patient with severe sepsis, leukocytosis, lactic acidosis, hypotension, acute respiratory failure, peritonitis -lactic acid has normalized, -continue Levophed obtain blood pressure -not a candidate for liberal IV fluids due to end-stage renal disease -antibiotics as above (4) Ischemic stroke: Code(s): I63.9 - Cerebral infarction, unspecified Status: Acute Assessment and Plan: Patient with ischemic stroke 08/14/2022 CT brain showed old lacunar infarct, right caudate nucleus, no intracranial bleeding. 08/15/2022 MRI brain showed scattered small acute infarcts bilateral frontal and parietal lobes, loss of normal flow void noted to left carotid artery suggesting slow flow or thrombus noted. 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 Suggestion of either slow flow potentially occlusion of the right vertebral artery. 08/16: This morning patient was unable to follow commands on his right upper and lower extremity, right side was flaccid, he was withdrawing to pain on the right upper and lower extremity. 08/16 CT scan of the brain : Cerebral atherosclerosis and chronic small vessel ischemic changes of the cerebral white matter No intracranial mass lesion or hemorrhage, midline shift or mass effect effect Moderate cerebral volume loss 08/16 echo did not show any shunt or thrombus Discussed with neurology Continue aspirin Plavix and statin Consult cardiology for JENN Will discuss with Nephrology regarding obtaining a CTA (5) COPD (chronic obstructive pulmonary disease): Qualifiers: COPD type: unspecified COPD Qualified Code(s): J44.9 - Chronic obstructive pulmonary disease, unspecified Code(s): J44.9 - Chronic obstructive pulmonary disease, unspecified Status: Chronic Assessment and Plan: Continue bronchodilators, mechanical ventilation (6) End stage renal disease: Code(s): N18.6 - End stage renal disease Status: Chronic Assessment and Plan: Patient with end-stage renal disease on peritoneal dialysis -nephrology following the patient Daily peritoneal dialysis (7) Ileus: Code(s): K56.7 - Ileus, unspecified Status: Acute Assessment and Plan: Patient had hypodynamic bowel sounds, large output from OG tube of bilious fluid. I reviewed his KUB and show
--- NOTE | 2022-08-20 09:49 | PM.CNCAR ---
Assessment and Plan Assessment and plan (1) Septic shock: Code(s): A41.9 - Sepsis, unspecified organism; R65.21 - Severe sepsis with septic shock Status: Acute (2) Ileus: Code(s): K56.7 - Ileus, unspecified Status: Acute (3) Right sided weakness: Code(s): R53.1 - Weakness Status: Acute (4) Acute respiratory failure: Code(s): J96.00 - Acute respiratory failure, unspecified whether with hypoxia or hypercapnia Status: Acute (5) Ischemic stroke: Code(s): I63.9 - Cerebral infarction, unspecified Status: Acute (6) Peritonitis: Code(s): K65.9 - Peritonitis, unspecified Status: Acute (7) Numbness and tingling of right arm: Code(s): R20.0 - Anesthesia of skin; R20.2 - Paresthesia of skin Status: Acute (8) Tobacco abuse: Code(s): Z72.0 - Tobacco use Status: Chronic (9) COPD (chronic obstructive pulmonary disease): Qualifiers: COPD type: unspecified COPD Qualified Code(s): J44.9 - Chronic obstructive pulmonary disease, unspecified Code(s): J44.9 - Chronic obstructive pulmonary disease, unspecified Status: Chronic (10) Hypertension: Qualifiers: Hypertension type: unspecified Qualified Code(s): I10 - Essential (primary) hypertension Code(s): I10 - Essential (primary) hypertension Status: Chronic (11) End stage renal disease: Code(s): N18.6 - End stage renal disease Status: Chronic Plan Will proceed with JENN. Procedure explained to patient's family, including details of procedural, risks vs. benefits, alternative options. Family consents to JENN. Patient currently DNR but family okay with patient being full code for JENN. History of Present Illness History of Present Illness Consult date/time: 08/20/22 09:49 Requesting physician: Walter Fairbanks MD Consult reason: Other (JENN for CVA) Reason For Visit: Peritonitis,Sepsis/Hypertensive Emergency Narrative: Patient is a 67-year-old male with a history of CKD on peritoneal dialysis, COPD, anemia, hypertension, tobacco abuse who presented on 08/14/2022 with abdominal pain. Patient found to have sepsis and is being treated for peritonitis. Brain MRI done showing scattered small acute infarcts involving the bilateral frontal and parietal lobes. Neurology was consulted, and is concerned for cardioembolic source. Recommended JENN. Cardiology consulted for JENN. At this time, patient is intubated and sedation. Tube feeds have been held for >12 hours now. Review of Systems Review of Systems: ROS unobtainable: Yes unobtainable due to endotracheal tube PMFSH Past Medical History Medical History CKD (chronic kidney disease) stage V requiring chronic dialysis Colon cancer screening COPD (chronic obstructive pulmonary disease) End stage renal disease Peritoneal dialysis daily Erythropoietin deficiency anemia History of CVA (cerebrovascular accident) As per CT scan on 08/14/2022 shows old infarction Hypertension Peritoneal dialysis catheter in place WILMER (renal osteodystrophy) Tobacco abuse Surgical History Surgical History H/O inguinal hernia repair Family History Family History Mother Hypertension Cerebrovascular accident Father Lung cancer Sibling Myocardial infarct Social History Social History Social History: The patient is single and has no children. The patient is down to smoking 4 cigarettes a day. Patient used to drink a beer a day but denies any alcohol currently. He denies any marijuana or illicit drugs. His brother is the durable power district attorney for healthcare. 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 Code status full code
--- NOTE | 2022-08-20 11:46 | PCFNICU ---
ICU Rounding Note: Pt current nutrition is Nepro at 45 ml/hr. Last recorded weight is 66.678 kg. Bowel Motility:+BM reported 08/19 Labs Reviewed:Cr 7.0,BUN 38 Meds Noted:Plavix,Precedex, Levophed, Zinc, Vit D, Vit C, B12, Protonix Skin: WNL Additional Notes:Patient remains on mechanical vent. Tube feedings currently on hold due to Ileus. Possible trickle feedings if cleared by GI. Recommend tube feedings of Nepro when restarting. JENN today. Following daily in ICU rounds. Monitoring labs, weights, tube feeding tolerance, plan of care, meds. Follow up Thursday and Thursday per policy.
[2022-08-20 11:56] LABS: Glucose Point of Care 130 mg/dl (65-105)
--- NOTE | 2022-08-20 12:03 | P.PNNP_ITS ---
Progress Note: A&P Assessment and Plan (1) End stage renal disease: Code(s): N18.6 - End stage renal disease Status: Chronic Assessment and Plan: * continue nightly peritoneal dialysis * follow electrolytes, volume status and clearance * adjust PD Rx to maintain I/Os (2) Peritonitis: Code(s): K65.9 - Peritonitis, unspecified Status: Acute Assessment and Plan: * as evidenced by symptoms and PD fluid cell count on admission * PD fluid culture results noted * continue IV vancomycin - transition to IP vancomycin on discharge if needed * repeat PD fluid cell count improving (3) Sepsis: Code(s): A41.9 - Sepsis, unspecified organism Status: Acute Assessment and Plan: * as noted with leukocytosis, fever, hypotension, acute respiratory failure, and peritonitis * follow culture data * vasopressor support as needed * on IV antibiotics -- added antifungal therapy today (4) Acute respiratory failure: Code(s): J96.00 - Acute respiratory failure, unspecified whether with hypoxia or hypercapnia Status: Acute Assessment and Plan: * intubated (08/16/22) due to respiratory distress, altered mental status and inability to protect his airway * further complicated by COPD and ongoing smoking * continue ventilator support * continue bronchodilators (5) Ischemic stroke: Code(s): I63.9 - Cerebral infarction, unspecified Status: Acute Assessment and Plan: * imaging to date consistent with stroke * carotid dopplers showing a left carotid occlusion and right vertebral artery occlusion * Neurology recommendations noted * Cardiology to perform JENN * recommending CTA of head + neck -- ok for this intervention/testing from renal perspective (6) Erythropoietin deficiency anemia: Code(s): D63.1 - Anemia in chronic kidney disease Status: Chronic Assessment and Plan: * due to ESRD * follow trend of H/H * holding Epogen at this time Discussed case with Dr. Fairbanks earlier today. Will continue to follow. Subjective Date/time seen: 08/20/22 12:03 Tolerated peritoneal dialysis treatment overnight without any issues or problems; remains on full ventilator support; issues with hypotension neces sitating institution of vasopressor therapy to maintain his MAP; febrile in the last 24 hours; Neurology saw yesterday with Cardiology consultation earlier today. Exam Narrative: General: WD/WN male intubated/sedated and on ventilator Heart: normal S1 and S2; no rub Lungs: coarse breath sounds Abdomen: soft, nontender, nondistended, positive bowel sounds Extremities: no cyanosis or clubbing; no edema Skin: no rash Objective Data Vital Signs Vital Signs: Vital Signs Temp Pulse Resp BP Pulse Ox O2 Del Method FiO2 08/20/22 10:00 37.7 C H 87 20 87/62 L 95 08/20/22 10:00 87 08/20/22 11:00 91 21 H 106/68 94 Mechanical Ventilation 08/20/22 10:55 92 21 H 111/67 93 Mechanical Ventilation 08/20/22 10:50 92 21 H 113/74 93 Mechanical Ventilation 08/20/22 10:45 99 16 102/72 93 Mechanical Ventilation 08/20/22 10:40 96 21 H 132/70 94 Mechanical Ventilation 08/20/22 10:35 98 20 154/80 H 95 Mechanical Ventilation 08/20/22 10:30 101 H 24 H 172/83 H 96 Mechanical
--- NOTE | 2022-08-20 12:03 | PM.PNNEP ---
Progress Note: A&P Assessment and Plan (1) End stage renal disease: Code(s): N18.6 - End stage renal disease Status: Chronic Assessment and Plan: continue nightly peritoneal dialysis follow electrolytes, volume status and clearance adjust PD Rx to maintain I/Os (2) Peritonitis: Code(s): K65.9 - Peritonitis, unspecified Status: Acute Assessment and Plan: as evidenced by symptoms and PD fluid cell count on admission PD fluid culture results noted continue IV vancomycin - transition to IP vancomycin on discharge if needed repeat PD fluid cell count improving (3) Sepsis: Code(s): A41.9 - Sepsis, unspecified organism Status: Acute Assessment and Plan: as noted with leukocytosis, fever, hypotension, acute respiratory failure, and peritonitis follow culture data vasopressor support as needed on IV antibiotics -- added antifungal therapy today (4) Acute respiratory failure: Code(s): J96.00 - Acute respiratory failure, unspecified whether with hypoxia or hypercapnia Status: Acute Assessment and Plan: intubated (08/16/22) due to respiratory distress, altered mental status and inability to protect his airway further complicated by COPD and ongoing smoking continue ventilator support continue bronchodilators (5) Ischemic stroke: Code(s): I63.9 - Cerebral infarction, unspecified Status: Acute Assessment and Plan: imaging to date consistent with stroke carotid dopplers showing a left carotid occlusion and right vertebral artery occlusion Neurology recommendations noted Cardiology to perform JENN recommending CTA of head + neck -- ok for this intervention/testing from renal perspective (6) Erythropoietin deficiency anemia: Code(s): D63.1 - Anemia in chronic kidney disease Status: Chronic Assessment and Plan: due to ESRD follow trend of H/H holding Epogen at this time Discussed case with Dr. Fairbanks earlier today. Will continue to follow. Subjective Date/time seen: 08/20/22 12:03 Tolerated peritoneal dialysis treatment overnight without any issues or problems; remains on full ventilator support; issues with hypotension necessitating institution of vasopressor therapy to maintain his MAP; febrile in the last 24 hours; Neurology saw yesterday with Cardiology consultation earlier today. Exam Narrative: General: WD/WN male intubated/sedated and on ventilator Heart: normal S1 and S2; no rub Lungs: coarse breath sounds Abdomen: soft, nontender, nondistended, positive bowel sounds Extremities: no cyanosis or clubbing; no edema Skin: no rash Objective Data Vital Signs Vital Signs: Vital Signs Temp Pulse Resp BP Pulse Ox O2 Del Method FiO2 08/20/22 10:00 37.7 C H 87 20 87/62 L 95 08/20/22 10:00 87 08/20/22 11:00 91 21 H 106/68 94 Mechanical Ventilation 30 08/20/22 10:55 92 21 H 111/67 93 Mechanical Ventilation 30 08/20/22 10:50 92 21 H 113/74 93 Mechanical Ventilation 30 08/20/22 10:45 99 16 102/72 93 Mechanical Ventilation 30 08/20/22 10:40 96 21 H 132/70 94 Mechanical Ventilation 30 08/20/22 10:35 98 20 154/80 H 95 Mechanical Ventilation 30 08/20/22 10:30 101 H 24 H 172/83 H 96 Mechanical Ventilation 30 08/20/22 10:25 117 H 24 H 206/94 H 95 Mechanical Ventilation 30 08/20/22 10:20 97 20 95 Mechanical Ventilation 30 08/20/22 10:15 103 H 23 H 125/89 96 Mechanical Ventilation 30 08/20/22 10:10 90 21 H 100/68 95 Mechanical Ventilation 30 08/20/22 10:05 92 21 H 99/68 L 96 Mechanical Ventilation 30 08/20/22 09:55 86 19 98/67 L 96 Mechanical Ventilation 30 08/20/22 08:10 80 95 Mechanical Ventilation 30 08/20/22 08:10 80 20 08/20/22 08:00 96 23 H 96 Mechanical Ventilation 30 08/20/22 08:00 30 08/20/22 08:00 96 08/20
[2022-08-20 12:52] LABS: Amylase Peritoneal Fluid <10 U/L
[2022-08-20] MEDS: MICAFUNGIN SODIUM 100 MG in SODIUM CHLORIDE 0.9% IV 100 ML IVPB (12:56)
[2022-08-20] MEDS: METOCLOPRAMIDE HCL INJ 10 MG/2 ML VIAL IV PUSH ×2 (12:56→17:14)
--- NOTE | 2022-08-20 13:07 | WPDTEECHO ---
JENN TransEsophageal Echocardiogram Date of procedure: 08/20/22 Procedure Type: Date of Procedure: 08/20/2022 Brief History Of Present Illness: Patient is a 67-year-old male who is referred for transesophageal echocardiogram for further evaluation for CVA, concern for cardioembolic stroke. Procedure In Detail: As patient is currently intubated and sedated, consent was obtained from patient's family. After verbal and written informed consent was obtained, the patient risks, benefits, and alternatives explained in detail to the patient's family. The patient's family agreed to proceed with the plan of care as outlined above.?The patient was evaluated at bedside in the ICU room.?The posterior oropharynx, neck, and jaw angle all within normal limits on examination. Lungs were clear to auscultation. See pre-sedation note for further details. The patient was then placed in the appropriate 30 to 45 degree angle supine position at a slight left lateral decubitus position.?Patient was monitored throughout the study with telemetry, oxygen saturation, end-tidal CO2 monitoring, blood pressure, heart rate, and respirations.? The transesophageal echocardiogram probe was advanced into the posterior hypopharynx and into the esophagus easily and without complication.? Multiple, multiplanar echocardiographic images were obtained in multiple standard re- projections.? Pulsed wave, continuous-wave, and color-flow Doppler were utilized in conjunction with this study.? At the conclusion of the study, the transesophageal echocardiogram probe was removed easily and without complication.? The patient tolerated the procedure well without difficulty.? Patient was in sinus rhythm throughout the study. Moderate Sedation/Anesthesia administration: Patient was already intubated and sedated at the time of JENN. Additonal sedation was administered for patient comfort by [employer] Inspector RN. Total of Versed 4mg IV were administered. Procedure start time was 10:15AM. End time was 11:01AM. Procedure face-face time of 46 minutes.? Sedation was administered by a qualified/certified observer Alysia LINDSAY under my supervision with intra-procedure [id number] observation and management throughout the entirety of the procedure.? There were no other issues or complications and patient tolerated the procedure well. See post-anesthesia documentation. FINDINGS: LEFT VENTRICLE: Size and systolic function were within normal limits without wall motion abnormalities with ejection fraction of 60-65%. RIGHT VENTRICLE:? Size and systolic function within normal limits. LEFT ATRIUM: Normal size. No thrombus in left atrium. RIGHT ATRIUM: Normal size. INTERATRIAL SEPTUM: ? Interatrial septum is anatomically normal without evidence of shunt with color-flow Doppler nor with injection of agitated saline. MITRAL VALVE: ? Mitral valve is anatomically normal with preserved leaflet excursion and no regurgitation. No vegetations seen. AORTIC VALVE: The aortic valve was an anatomically normal 3 leaflet structure with normal leaflet excursion and no regurgitation identified. No vegetations seen. TRICUSPID VALVE: The tricuspid valve is anatomically normal with normal leaflet excursion with trivial regurgitation identified.? No mobile elements identified. PULMONIC VALVE: Pulmonic valve is grossly normal. No valvular vegetations seen. LEFT ATRIAL APPENDAGE: Anatomically normal structure with prominent pectinate muscles without thrombus or vegetation identified. PERICARDIUM: The pericardium was anatomically normal without significant pericardial effusion. ? AORTA: Deep transgastric views were not obtained. Mid-esophageal views of the aorta show mild-moderate atherosclerotic disease in aorta. Complications: None This dictation may have been done utilizing a voice recognition system.? Attempts have been made to correct errors. However, there may be uncorrected grammatical, spelling, and recognition errors present.
[2022-08-20] MEDS: dexmedeTOMIDine 400 MCG/100 ML 400 MCG/100 ML BAG 6.63 MCG IV CONT (15:15)
--- NOTE | 2022-08-20 16:10 | PM.IMPN ---
Progress Note: A&P Assessment and Plan (1) Acute respiratory failure: Code(s): J96.00 - Acute respiratory failure, unspecified whether with hypoxia or hypercapnia Status: Acute Assessment and Plan: intubated, sedated, appreciate critical care consultation and management (2) Peritonitis: Code(s): K65.9 - Peritonitis, unspecified Status: Acute Assessment and Plan: continue IV antibiotics (3) Severe sepsis: Code(s): A41.9 - Sepsis, unspecified organism; R65.20 - Severe sepsis without septic shock Status: Acute Assessment and Plan: as above, appreciate critical care consultation (4) Ischemic stroke: Code(s): I63.9 - Cerebral infarction, unspecified Status: Acute Assessment and Plan: Patient with ischemic stroke, 08/14/2022 CT brain showed old lacunar infarct, right caudate nucleus, no intracranial bleeding. 08/15/2022 MRI brain showed scattered small acute infarcts bilateral frontal and parietal lobes, loss of normal flow void noted to left carotid artery suggesting slow flow or thrombus noted. 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 Suggestion of either slow flow potentially occlusion of the right vertebral artery. Discussed with neurology Continue aspirin, Plavix and statin JENN today (5) COPD (chronic obstructive pulmonary disease): Qualifiers: COPD type: unspecified COPD Qualified Code(s): J44.9 - Chronic obstructive pulmonary disease, unspecified Code(s): J44.9 - Chronic obstructive pulmonary disease, unspecified Status: Chronic Assessment and Plan: Continue bronchodilators, mechanical ventilation (6) End stage renal disease: Code(s): N18.6 - End stage renal disease Status: Chronic Assessment and Plan: ESRD on PD, appreciate nephrology consultation (7) Ileus: Code(s): K56.7 - Ileus, unspecified Status: Acute Assessment and Plan: adynamic ileus suspected (8) Septic shock: Code(s): A41.9 - Sepsis, unspecified organism; R65.21 - Severe sepsis with septic shock Status: Acute Assessment and Plan: appreciate critical care consultation (9) Hypertension: Qualifiers: Hypertension type: unspecified Qualified Code(s): I10 - Essential (primary) hypertension Code(s): I10 - Essential (primary) hypertension Status: Chronic Assessment and Plan: stable Plan DVT prophylaxis with heparin GI prophylaxis not indicated Code status DNR Subjective Date/time seen: 08/20/22 16:10 Interval history: Patient intubated, sedated. No overnight events. Review of Systems Review of Systems: 12 point review of systems was assessed and was negative except as noted in the HPI Exam Narrative: General: Intubated and sedated in no distress HEENT:? Pupils equal and reactive, sclera is clear, ETT in place Respiratory:? Coarse breath sounds bilateral lower lung zones, adequate air entry Cardiac:? S1-S2 normal, regular rate and rhythm Abdomen:? Abdomen is distended, soft, tympanic on percussion, hypoactive but present bowel sounds Extremities:? Trace edema, palpable pedal pulses Neuro:? Patient is intubated, sedated Skin:? Skin lesions noted, otherwise warm and dry Psych:? Unable to assess this time Objective Data Vital Signs Vital Signs: Vital Signs - 24 hr 08/19/22 16:30 08/19/22 17:04 08/19/22 16:30 Temperature 100.2 F H Pulse Rate 121 H 129 H 122 H Respiratory Rate 23 H 24 H Blood Pressure 171/94 H Pulse Oximetry 95 100 Oxygen Delivery Mechanical Ventilation Mechanical Ventilation Fraction of Inspired Oxygen 30 08/19/22 18:00 08/19/22 18:00 08/19/22 18:00 Temperature 99.3 F Pulse Rate 113 H 113 H 122 H Respiratory Rate 20 24 H Blood Pressure 166/118 H Pulse Oximetry 96 Oxygen Delivery Fract
[2022-08-20 17:14] LABS: Glucose Point of Care 150 mg/dl (65-105)
[2022-08-21] VITALS (35 sets, daily range): BP systolic 99–199; BP diastolic 64–97; PULSE 81–124; RESP 18–200; TEMP 37.7–38.3; O2SAT 91–98
[2022-08-21] MEDS: METOCLOPRAMIDE HCL INJ 10 MG/2 ML VIAL IV PUSH ×5 (00:22→23:28)
[2022-08-21 00:27] LABS: Glucose Point of Care 142 mg/dl (65-105)
[2022-08-21] MEDS: LEVALBUTEROL NEB 1.25 MG/3 ML 0.63 MG INHALATION ×4 (03:29→20:56)
[2022-08-21] MEDS: IPRATROPIUM BR 0.02% INH SOLN 0.5 MG/2.5 ML VIAL INHALATION ×4 (03:29→20:55)
[2022-08-21 04:55] LABS: Hematocrit 30.3 % (42.0-52.0); Hemoglobin 9.9 g/dL (14.0-18.0); Mean Corpuscular HGB Conc 32.7 g/dl (32-36); Mean Corpuscular Hemoglobin 30.8 pg (26-34); Mean Corpuscular Volume 94.4 fl (80-100); Mean Platelet Volume 9.9 fl (7.4-10.4); Platelet Count Result 366 k/mm3 (150-375); Red Blood Count 3.21 M/mm3 (4.6-6.20); Red Cell Distribution Width 13.8 % (11.5-14.5); White Blood Count 25.1 K/mm3 (4.5-10.0)
[2022-08-21] MEDS: HEPARIN SODIUM 5,000 UNITS/ML VIAL 5000 UNITS SUB-Q ×3 (05:02→20:57)
[2022-08-21] MEDS: CENTRAL LINE FLUSH 10 ML IV PUSH ×3 (05:02→20:57)
[2022-08-21 05:41] LABS: Alanine Aminotransferase 375 U/L (6-50); Albumin Level 3.1 g/dL (3.5-5.1); Alkaline Phosphatase 317 U/L (38-126); Anion Gap 14 mmol/L (8-16); Aspartate Amino Transferase 552 U/L (17-59); Bilirubin,Total 0.5 mg/dL (0.2-1.3); Blood Urea Nitrogen 47 mg/dL (9-20); Calcium 8.3 mg/dL (8.4-10.2); Carbon Dioxide 28 mmol/L (22-30); Chloride 94 mmol/L (98-107); Estimated CRCL calculation 8 ml/min; Estimated Glomerular Filt Rate 8; Glucose 115 mg/dL (65-110); Magnesium 2.2 mg/dL (1.6-2.3); Phosphorus 5.1 mg/dL (2.5-4.5); Potassium 3.6 mmol/L (3.4-5.0); Sodium 136 mmol/L (137-145)
[2022-08-21 06:20] LABS: Base Excess ABG 1.5 mEq/l (+/-2.0); Carboxyhemoglobin 0.3 % THb (0-2.0); Fractional Inspired Oxygen 30 %; Methemoglobin ABG 0.3 %THb (0-1.5); Oxygen Content ABG 15.4 %vol (16.0-22.0); Oxygen Saturation ABG 96.6 % (95.0-100.0); Oxyhemoglobin 94.6 % THb (90.0-100.0); PCO2 ABG 35.6 mmHg (35.0-45.0); PO2 ABG 81.1 mmHg (80.0-100.0); Reduced Hemoglobin 4.8 %THb (0-5.0); Total Hemoglobin 11.5 g/dL (12.0-18.0); pH ABG 7.465 (7.350-7.450)
[2022-08-21 06:21] LABS: Arterial Blood Gas Vent Mode CMV; Arterial Blood Gas Ventilator rate 14 /MIN; Device VENTILATOR; Modified Allen's Test Unable to perform; Site Drawn RIGHT RADIAL
[2022-08-21 06:22] LABS: Arterial Blood Gas PEEP 5 cmH2O; Arterial Blood Gas Tidal Volume 360 ml
[2022-08-21 07:20] LABS: Band Neutrophils Percent 8 % (0-6); Eosinophils Percent Manual 2 % (0-4); Lymphocytes Absolute Manual 1.75 K/mm3 (1.1-4.5); Monocytes Absolute Manual 2.25 K/mm3 (0.1-0.90); Monocytes Percent Manual 9 % (3-9); Neutrophils Absolute Manual 20.58 K/mm3 (1.3-6.7); Neutrophils Percent Manual 74 % (46-73); Platelet Estimate Adequate (Adequate); Total Cells Counted 100
[2022-08-21 07:21] LABS: Hypochromasia 1+ (NORMAL)
[2022-08-21 07:22] LABS: Anisocytosis 2+ (NORMAL)
--- NOTE | 2022-08-21 07:22 | PM.IMPN ---
Progress Note: A&P Assessment and Plan (1) Acute respiratory failure: Code(s): J96.00 - Acute respiratory failure, unspecified whether with hypoxia or hypercapnia Status: Acute Assessment and Plan: intubated, sedated, appreciate critical care consultation and management (2) Peritonitis: Code(s): K65.9 - Peritonitis, unspecified Status: Acute Assessment and Plan: Continue IV antibiotics and IV antifungal Cefepime, micafungin, vancomycin (3) Severe sepsis: Code(s): A41.9 - Sepsis, unspecified organism; R65.20 - Severe sepsis without septic shock Status: Acute Assessment and Plan: As above, appreciate critical care consultation Transaminitis noted, thought to be secondary to hypoperfusion from sepsis, continue supportive care, monitor Urine culture came back negative, blood cultures x2 are both negative growth to date, taken on 08/16/2022 (4) Ischemic stroke: Code(s): I63.9 - Cerebral infarction, unspecified Status: Acute Assessment and Plan: Patient with ischemic stroke and L. ICA occlusion/thrombus Neurology consult recommending aspirin, Plavix, statin, CTA head and neck, JENN as well as possibly a loop recorder 08/20: JENN was essentially unremarkable (5) COPD (chronic obstructive pulmonary disease): Qualifiers: COPD type: unspecified COPD Qualified Code(s): J44.9 - Chronic obstructive pulmonary disease, unspecified Code(s): J44.9 - Chronic obstructive pulmonary disease, unspecified Status: Chronic Assessment and Plan: Continue bronchodilators, mechanical ventilation (6) End stage renal disease: Code(s): N18.6 - End stage renal disease Status: Chronic Assessment and Plan: ESRD on PD, appreciate nephrology consultation (7) Ileus: Code(s): K56.7 - Ileus, unspecified Status: Acute Assessment and Plan: adynamic ileus suspected (8) Septic shock: Code(s): A41.9 - Sepsis, unspecified organism; R65.21 - Severe sepsis with septic shock Status: Acute Assessment and Plan: appreciate critical care consultation (9) Hypertension: Qualifiers: Hypertension type: unspecified Qualified Code(s): I10 - Essential (primary) hypertension Code(s): I10 - Essential (primary) hypertension Status: Chronic Assessment and Plan: stable Plan DVT prophylaxis with heparin GI prophylaxis with PPI Code status DNR Subjective Date/time seen: 08/21/22 07:22 Interval history: Patient intubated, sedated. Fever up to 100.7 overnight noted with tachycardia. Review of Systems Review of Systems: ROS unobtainable: Yes unobtainable due to endotracheal tube Exam Narrative: General: Intubated, sedated HEENT: Atraumatic, normocephalic CV: Regular rate and rhythm, S1, S2 Lungs: Unlabored breathing noted, no audible wheeze Abdomen: Soft, nondistended Psych: Unable to assess Objective Data Vital Signs Vital Signs: Vital Signs - 24 hr 08/20/22 07:57 08/20/22 08:00 08/20/22 08:00 Temperature 99.9 F H 99.9 F H Pulse Rate 85 96 96 Respiratory Rate 20 23 H Blood Pressure 90/63 L 151/82 H Pulse Oximetry 96 Oxygen Delivery Fraction of Inspired Oxygen 08/20/22 08:00 08/20/22 08:00 08/20/22 08:10 Temperature Pulse Rate 96 80 Respiratory Rate 23 H 20 Blood Pressure Pulse Oximetry 96 Oxygen Delivery Mechanical Ventilation Fraction of Inspired Oxygen 30 30 08/20/22 08:10 08/20/22 09:55 08/20/22 10:05 Temperature Pulse Rate 80 86 92 Respiratory Rate 19 21 H Blood Pressure 98/67 L 99/68 L Pulse Oximetry 95 96 96 Oxygen Delivery Mechanical Ventilation Mechanical Ventilation Mechanical Ventilation Fraction of Inspired Oxygen 30 30 30 08/20/22 10:10 08/20/22 10:15 08/20/22 10:20 Temperature Pulse Rate 90 103 H 97 Respiratory Rate 21 H 23 H 20 Blood Pressure 100/68 125/89 Pulse Oxim
[2022-08-21 07:23] LABS: Schistocytes 1+ (NORMAL); Target Cells 1+ (NORMAL)
[2022-08-21] MEDS: CLOPIDOGREL BISULFATE 75 MG TABLET PO (08:29)
[2022-08-21] MEDS: ZINC SULFATE 220 MG CAPSULE PO (08:29)
[2022-08-21] MEDS: CYANOCOBALAMIN 500 MCG TABLET PO (08:29)
[2022-08-21] MEDS: ASPIRIN 81 MG CHEWABLE TABLET PO (08:29)
[2022-08-21] MEDS: CHOLECALCIFEROL 1,000 UNITS TABLET 5000 UNITS PO (08:29)
[2022-08-21] MEDS: ATORVASTATIN 20 MG TABLET PO (08:29)
[2022-08-21] MEDS: MINERAL OIL/WHITE PETROLATUM OINTMENT 1 APPLIC EACH EYE ×2 (08:29→20:57)
[2022-08-21] MEDS: ASCORBIC ACID 250 MG TABLET PO (08:29)
[2022-08-21] MEDS: PANTOPRAZOLE SODIUM IV 40 MG VIAL IV PUSH (08:29)
[2022-08-21] MEDS: POTASSIUM CHLORIDE 20 MEQ PACKET (FOR LIQUID) 40 MEQ FEED TUBE (08:35)
--- NOTE | 2022-08-21 08:38 | WPDNEUROPN ---
Progress Note: A&P Assessment and Plan (1) Ischemic stroke: Code(s): I63.9 - Cerebral infarction, unspecified Status: Acute (2) Sepsis: Code(s): A41.9 - Sepsis, unspecified organism Status: Acute (3) Peritonitis: Code(s): K65.9 - Peritonitis, unspecified Status: Acute Plan Mr. Ferrari is a 67 year old male with a history of COPD, HTN, ESRD, smoking who is currently admitted due to peritonitis/sepsis, complicated by respiratory failure. R sided weakness noted earlier during admission. MRI brain showed bilateral frontal and parietal infarcts, which is concerning for embolic stroke of undetermined source. Surface echo w/ bubble study was unremarkable. Carotid Doppler showed occlusion of L ICA and <50% stenosis of R ICA, which could explain L hemispheric infarcts, but not bilateral involvement. - Continue ASA, Plavix, and Lipitor for carotid disease - Recommend Loop recorder placement for further evaluation of cardioembolic cause of stroke when stable; timing of procedure deferred to Cardiology Subjective Date/time seen: 08/21/22 08:38 Interval history: Rony Ferrari is a 67 year old male with a history of HTN, ESRD, COPD, chronic smoking who presented on 08/14 due to abdominal pain. He also reported a transient episode of RU weakness that self-resolved within 20 minutes. He was on daily aspirin prior to admission. CT head showed old lacunar infarct in the right caudate. He had leukocytosis, and given the abdominal pain, there was concern for peritonitis. Patient was started on antibiotics and subsequently admitted. On 08/15 he had an MRI brain that showed bilateral frontal and parietal infarcts. carotid Doppler showed complete occlusion of the left ICA and <50% stenosis of right ICA, as well as possible slow void/potential occlusion of the right vertebral artery. CTA was not obtained presumably due to patient's renal function. He developed respiratory distress, was intubated, and subsequently transferred to the ICU. On 08/16 he was noted to have R sided weakness. Repeat CT head showed no acute change. Patient remains intubated and sedated. He is currently on ASA 81mg, Plavix 75mg, and Lipitor 20mg daily. Interval history: JENN done yesterday -- no evidence of clot or shunt. CTA showed 19% stenosis of proximal R ICA and total occlusion of L ICA as well as moderate stenosis of bilateral common carotid arteries and proximal left subclavian artery. He was febrile yesterday. Review of Systems Review of Systems: ROS unobtainable: Yes unobtainable due to endotracheal tube Exam Const: General: comfortable and no acute distress HENMT: Mouth: Yes moist mucous membranes Eyes: Pupils: Equal, round and reactive pupils present Resp: Auscultation: clear to auscultation bilaterally Other: mechanically ventilated Cardio: Rate: tachycardic GI: GI Palp: Yes Soft to palpation Urinary Catheter: Urinary Catheter: patent and draining Skin: General skin exam: normal color Neuro: Other: Eyes opening spontaneously, did close his eyes when asked. Some subtle spontaneous movements of the left hand. No antigravity movement of the extremities noted. Was not able to wiggle his toes to command. Did not withdraw extremities to noxious stimulus. Brisk biceps and patellar reflexes. Extrem: General: normal to inspection Psych: Other: sedated with precedex Objective Data Vital Signs Vital Signs: Vital Signs - 24 hr 08/20/22 09:55 08/20/22 10:05 08/20/22 10:10 Temperature Pulse Rate 86 92 90 Respiratory Rate 19 21 H 21 H Blood Pressure 98/67 L 99/68 L 100/68 Pulse Oximetry 96 96 95 Oxygen Delivery Mechanical Ventilation Mechanical Ventilation Mechanical Ventilation Fraction of Inspired Oxygen 30 30 30 08/20/22 10:15 08/20/22 10:20 08/20/22 10:25 Temperature Pulse Rate 103 H 97 117 H Respiratory Rate 23 H 20 24 H Blood Pressure 125/89 206/94 H Pulse Oximetry 96 95 95 Oxygen Del
[2022-08-21] MEDS: MICAFUNGIN SODIUM 100 MG in SODIUM CHLORIDE 0.9% IV 100 ML IVPB (08:40)
[2022-08-21] MEDS: ACETAMINOPHEN 325 MG TABLET 650 MG PO (08:50)
--- NOTE | 2022-08-21 09:46 | WPDINTPN ---
Progress Note: A&P Assessment and Plan (1) Acute respiratory failure: Code(s): J96.00 - Acute respiratory failure, unspecified whether with hypoxia or hypercapnia Status: Acute Assessment and Plan: Acute respiratory failure, patient was intubated on 08/16/2022 in early hours -patient was found to be in respiratory distress, altered mental status, unable to protect his airway -respiratory failure likely related to mental status issues and or infectious cause/severe sepsis -patient currently on CMV mode of ventilation, peep of 5, 30% FiO2, -ABGs reviewed -decrease rate to 12 and tidal volume 350 -I placed patient on pressure support 05/16 any quickly failed. Adequate RSBI was obtained on pressure support of 09/18. Continue as tolerated -weaning will depend on respiratory improvement and improvement is neurological status -chest CT reviewed -mild emphysema. -chest x-ray done this morning reviewed -continue Xopenex and Atrovent -patient is sedated with Precedex which is currently off at this time for sedation holidayl (2) Peritonitis: Code(s): K65.9 - Peritonitis, unspecified Status: Acute Assessment and Plan: Patient presented to the ED on 08/14/2022 with complains of diffuse abdominal pain x1 week. Paracentesis revealed peritonitis, and peritoneal fluid grew Staph epidermiis -patient was initially started on intraperitoneal ceftazidime and IV vancomycin (08/14) -currently on IV vancomycin and IV cefepime - 08/20-empiric micafungin was added after discussion with Nephrology due to persistent elevated WBC and fevers - 08/21-change cefepime to Zosyn -repeat peritoneal fluid analysis on 08/16 showed improvement in the white blood cells, more clear and colorless. -status post albumin x4 doses (3) Severe sepsis: Code(s): A41.9 - Sepsis, unspecified organism; R65.20 - Severe sepsis without septic shock Status: Acute Assessment and Plan: Patient with severe sepsis, leukocytosis, lactic acidosis, hypotension, acute respiratory failure, peritonitis Off Levophed at this time He continues to have fever and elevated WBC Anti fungal therapy added empirically to antibiotic therapy for peritonitis Patient does have thick secretions coming out but CT chest did not show any significant pneumonia CT chest abdomen pelvis was done IMPRESSION: 1. Dilated small bowel without transition point, likely adynamic ileus. 2. Mild emphysema. 3. Endotracheal tube tip 6 mm above the shayy. 4. 15 mm cystic lesion in the pancreas. The differential diagnosis includes pseudocyst, intraductal papillary mucinous neoplasm (IPMN), mucinous cystic neoplasm (MCN), serous cystadenoma, and neuroendocrine tumor. Abdomen MRI without and with contrast is recommended in one year. 5. Small volume of ascites with peritoneal dialysis catheter 08/21 change cefepime to Zosyn Check right upper quadrant ultrasound (4) Ischemic stroke: Code(s): I63.9 - Cerebral infarction, unspecified Status: Acute Assessment and Plan: Patient with bilateral multifocal ischemic stroke 08/14/2022 CT brain showed old lacunar infarct, right caudate nucleus, no intracranial bleeding. 08/15/2022 MRI brain showed scattered small acute infarcts bilateral frontal and parietal lobes, loss of normal flow void noted to left carotid artery suggesting slow flow or thrombus noted. 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 Suggestion of either slow flow potentially occlusion of the right vertebral artery. 08/16: This morning patient was unable to follow commands on his right upper and lower extremity, right side was flaccid, he was withdrawing to pain on the right upper and lower extremity. 08/16 CT scan of the brain : Cerebral atherosclerosis and chronic small vessel ischemic changes of the cerebral white matter No intracranial mass lesion or hemorrhage, mi
--- NOTE | 2022-08-21 11:36 | PCFNICU ---
ICU Rounding Note: Pt current nutrition is Nepro. Last recorded weight is 64.3 kg, down from 68.9 kg on admit. Bowel Motility:+BM reported 08/19 Labs Reviewed:PO4 5.1,BUN 47, Cr 7.3,Hgb 9.9,Hct 30.3,Na 136 Meds Noted:Plavix, Zinc, Vit D, Vit C, B12, Protonix, Zosyn Skin: WNL Additional Notes: Patient currently NPO for Ultrasound. Breathing trial today. Continue recommending Nepro at 45 ml/hr as goal rate for nutrition. Free water flush 30 ml q 4 hours. Agree with diet orders. Following daily in ICU rounds. Monitoring labs, weights, tube feeding tolerance, plan of care, meds. Follow up Thursday and Thursday per policy..
--- NOTE | 2022-08-21 12:10 | P.PNNP_ITS ---
Progress Note: A&P Assessment and Plan (1) End stage renal disease: Code(s): N18.6 - End stage renal disease Status: Chronic Assessment and Plan: * continue nightly peritoneal dialysis * follow electrolytes, volume status and clearance * adjust PD Rx to maintain I/Os (2) Peritonitis: Code(s): K65.9 - Peritonitis, unspecified Status: Acute Assessment and Plan: * as evidenced by symptoms and PD fluid cell count on admission * PD fluid culture results noted * continue IV vancomycin - transition to IP vancomycin on discharge if needed * repeat PD fluid cell count improving (3) Sepsis: Code(s): A41.9 - Sepsis, unspecified organism Status: Acute Assessment and Plan: * as noted with leukocytosis, fever, hypotension, acute respiratory failure, and peritonitis * follow culture data * continues to have fevers * off vasopressor support at this time * on IV antibiotics (4) Acute respiratory failure: Code(s): J96.00 - Acute respiratory failure, unspecified whether with hypoxia or hypercapnia Status: Acute Assessment and Plan: * intubated (08/16/22) due to respiratory distress, altered mental status and inability to protect his airway * further complicated by COPD and ongoing smoking * continue ventilator support * continue bronchodilators (5) Ischemic stroke: Code(s): I63.9 - Cerebral infarction, unspecified Status: Acute Assessment and Plan: * imaging to date consistent with stroke * carotid dopplers showing a left carotid occlusion and right vertebral artery occlusion * Neurology recommendations noted * JENN results noted * CTA of head + neck results reviewed (6) 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 Subjective Date/time seen: 08/21/22 12:10 Tolerated peritoneal dialysis treatment overnight without any issues or problems; remains on ventilator support but was able to be weaned off vasopressor support with stable hemodynamics at this time; continues to have on/off fevers in the last 24 - 48 hours; s.p JENN yesterday with results noted. Exam Narrative: General: WD/WN male intubated/sedated and on ventilator Heart: normal S1 and S2; no rub Lungs: coarse breath sounds Abdomen: soft, nontender, nondistended, positive bowel sounds Extremities: no cyanosis or clubbing; no edema Skin: no rash Objective Data Vital Signs Vital Signs: Vital Signs Temp Pulse Resp BP Pulse Ox O2 Del Method FiO2 08/21/22 11:36 114 H 95 Mechanical Ventilation 08/21/22 09:50 37.8 C H 08/21/22 10:00 37.8 C H 111 H 20 160/81 H 97 08/21/22 10:00 111 H 08/21/22 08:00 96 Mechanical Ventilation 08/21/22 08:00 37.9 C H 110 H 23 H 123/78 96 08/21/22 08:30 30 08/21/22 08:00 107 H 08/21/22 08:15 110 H 18 08/21/22 08:05 38.2 C H 105 H 19 119/74 08/21/22 08:50 38.1 C H 08/21/22 08:28 102 H 91 Mechanical Ventilation 08/21/22 07:41 105 H 19 08/21/22 05:05 108 H 96 Mechanical Ventilation 08/21/22 06:00 38
--- NOTE | 2022-08-21 12:10 | PM.PNNEP ---
Progress Note: A&P Assessment and Plan (1) End stage renal disease: Code(s): N18.6 - End stage renal disease Status: Chronic Assessment and Plan: continue nightly peritoneal dialysis follow electrolytes, volume status and clearance adjust PD Rx to maintain I/Os (2) Peritonitis: Code(s): K65.9 - Peritonitis, unspecified Status: Acute Assessment and Plan: as evidenced by symptoms and PD fluid cell count on admission PD fluid culture results noted continue IV vancomycin - transition to IP vancomycin on discharge if needed repeat PD fluid cell count improving (3) Sepsis: Code(s): A41.9 - Sepsis, unspecified organism Status: Acute Assessment and Plan: as noted with leukocytosis, fever, hypotension, acute respiratory failure, and peritonitis follow culture data continues to have fevers off vasopressor support at this time on IV antibiotics (4) Acute respiratory failure: Code(s): J96.00 - Acute respiratory failure, unspecified whether with hypoxia or hypercapnia Status: Acute Assessment and Plan: intubated (08/16/22) due to respiratory distress, altered mental status and inability to protect his airway further complicated by COPD and ongoing smoking continue ventilator support continue bronchodilators (5) Ischemic stroke: Code(s): I63.9 - Cerebral infarction, unspecified Status: Acute Assessment and Plan: imaging to date consistent with stroke carotid dopplers showing a left carotid occlusion and right vertebral artery occlusion Neurology recommendations noted JENN results noted CTA of head + neck results reviewed (6) Erythropoietin deficiency anemia: Code(s): D63.1 - Anemia in chronic kidney disease Status: Chronic Assessment and Plan: due to ESRD follow trend of H/H restart Epogen Will continue to follow. Subjective Date/time seen: 08/21/22 12:10 Tolerated peritoneal dialysis treatment overnight without any issues or problems; remains on ventilator support but was able to be weaned off vasopressor support with stable hemodynamics at this time; continues to have on/off fevers in the last 24 - 48 hours; s.p JENN yesterday with results noted. Exam Narrative: General: WD/WN male intubated/sedated and on ventilator Heart: normal S1 and S2; no rub Lungs: coarse breath sounds Abdomen: soft, nontender, nondistended, positive bowel sounds Extremities: no cyanosis or clubbing; no edema Skin: no rash Objective Data Vital Signs Vital Signs: Vital Signs Temp Pulse Resp BP Pulse Ox O2 Del Method FiO2 08/21/22 11:36 114 H 95 Mechanical Ventilation 30 08/21/22 09:50 37.8 C H 08/21/22 10:00 37.8 C H 111 H 20 160/81 H 97 08/21/22 10:00 111 H 08/21/22 08:00 96 Mechanical Ventilation 30 08/21/22 08:00 37.9 C H 110 H 23 H 123/78 96 08/21/22 08:30 30 08/21/22 08:00 107 H 08/21/22 08:15 110 H 18 08/21/22 08:05 38.2 C H 105 H 19 119/74 08/21/22 08:50 38.1 C H 08/21/22 08:28 102 H 91 Mechanical Ventilation 30 08/21/22 07:41 105 H 19 08/21/22 05:05 108 H 96 Mechanical Ventilation 30 08/21/22 06:00 38.2 C H 109 H 23 H 119/74 94 08/21/22 06:00 109 H 08/21/22 04:00 38.2 C H 96 18 106/68 94 08/21/22 04:00 30 08/21/22 04:00 102 H 21 H 95 Mechanical Ventilation 30 08/21/22 04:00 96 08/21/22 04:50 102 H 21 H 08/21/22 03:35 96 21 H 08/21/22 02:22 99 95 Mechanical Ventilation 30 08/21/22 03:29 102 H 21 H 08/21/22 02:00 38.0 C H 102 H 22 H 116/75 93 08/21/22 02:00 102 H 08/21/22 00:00 37.7 C H 106 H 27 H 102/70 95 08/21/22 00:00 30 08/21/22 00:00 85 23 H 95 Mechanical Ventilation 30 08/21/22 00:00 106 H 08/20/22 22:00 37.7 C H 85 23 H
[2022-08-21 12:28] LABS: Glucose Point of Care 110 mg/dl (65-105)
[2022-08-21] MEDS: LABETALOL HCL INJ 100 MG/20 ML VIAL 20 MG IV PUSH (14:49)
[2022-08-21] MEDS: dexmedeTOMIDine 400 MCG/100 ML 400 MCG/100 ML BAG IV CONT (17:21)
[2022-08-21 17:44] LABS: Glucose Point of Care 177 mg/dl (65-105)
[2022-08-21 23:32] LABS: Glucose Point of Care 171 mg/dl (65-105)
[2022-08-22] VITALS (70 sets, daily range): BP systolic 90–164; BP diastolic 66–88; PULSE 84–107; RESP 15–28; TEMP 37.2–38.1; O2SAT 94–97; BMI 22.6
[2022-08-22] MEDS: IPRATROPIUM BR 0.02% INH SOLN 0.5 MG/2.5 ML VIAL INHALATION ×4 (02:36→20:09)
[2022-08-22] MEDS: LEVALBUTEROL NEB 1.25 MG/3 ML 0.63 MG INHALATION ×4 (02:36→20:09)
[2022-08-22] MEDS: METOCLOPRAMIDE HCL INJ 10 MG/2 ML VIAL IV PUSH ×3 (04:51→17:55)
[2022-08-22] MEDS: HEPARIN SODIUM 5,000 UNITS/ML VIAL 5000 UNITS SUB-Q ×3 (04:51→21:32)
[2022-08-22] MEDS: CENTRAL LINE FLUSH 10 ML IV PUSH ×3 (04:52→21:33)
[2022-08-22 05:05] LABS: Alveolar/Arterial O2 Gradient 84.8 mmHg; Base Excess ABG 2.3 mEq/l (+/-2.0); Carboxyhemoglobin 0.3 % THb (0-2.0); Fractional Inspired Oxygen 30 %; HCO3 ABG 25.6 mEq/l (22.0-26.0); Methemoglobin ABG 0.2 %THb (0-1.5); Oxygen Content ABG 12.6 %vol (16.0-22.0); Oxygen Saturation ABG 97.4 % (95.0-100.0); Oxyhemoglobin 95.6 % THb (90.0-100.0); PCO2 ABG 34.7 mmHg (35.0-45.0); PO2 ABG 88.3 mmHg (80.0-100.0); PO2 FiO2 Ratio Arterial Blood 2.94 %; Reduced Hemoglobin 3.9 %THb (0-5.0); Total Hemoglobin 9.3 g/dL (12.0-18.0); pH ABG 7.486 (7.350-7.450)
[2022-08-22 05:08] LABS: Device VENTILATOR; Modified Allen's Test Pass; Site Drawn LEFT RADIAL
[2022-08-22 05:10] LABS: Arterial Blood Gas Vent Mode CMV; Arterial Blood Gas Ventilator rate 14 /MIN
[2022-08-22 05:11] LABS: Arterial Blood Gas PEEP 5 cmH2O; Arterial Blood Gas Tidal Volume 360 ml
[2022-08-22 05:33] LABS: Alanine Aminotransferase 413 U/L (6-50); Alkaline Phosphatase 435 U/L (38-126); Anion Gap 14 mmol/L (8-16); Aspartate Amino Transferase 410 U/L (17-59); Bilirubin,Total 0.6 mg/dL (0.2-1.3); Blood Urea Nitrogen 61 mg/dL (9-20); Calcium 8.3 mg/dL (8.4-10.2); Carbon Dioxide 27 mmol/L (22-30); Chloride 93 mmol/L (98-107); Estimated CRCL calculation 8 ml/min; Estimated Glomerular Filt Rate 8; Glucose 132 mg/dL (65-110); Hematocrit 30.1 % (42.0-52.0); Hemoglobin 9.6 g/dL (14.0-18.0); Magnesium 2.2 mg/dL (1.6-2.3); Mean Corpuscular HGB Conc 31.9 g/dl (32-36); Mean Corpuscular Hemoglobin 30.9 pg (26-34); Mean Corpuscular Volume 96.8 fl (80-100); Mean Platelet Volume 10.1 fl (7.4-10.4); Phosphorus 5.7 mg/dL (2.5-4.5); Platelet Count Result 419 k/mm3 (150-375); Potassium 3.6 mmol/L (3.4-5.0); Red Blood Count 3.11 M/mm3 (4.6-6.20); Red Cell Distribution Width 14.3 % (11.5-14.5); Sodium 134 mmol/L (137-145); White Blood Count 29.4 K/mm3 (4.5-10.0)
[2022-08-22 07:50] LABS: Band Neutrophils Percent 5 % (0-6); Basophils Absolute Manual 0.29 K/mm3 (0.0-0.1); Basophils Percent Manual 1 % (0-1); Lymphocytes Absolute Manual 3.23 K/mm3 (1.1-4.5); Metamyelocytes Percent 2 %; Monocytes Absolute Manual 1.76 K/mm3 (0.1-0.90); Monocytes Percent Manual 6 % (3-9); Myelocytes Percent 1 %; Neutrophils Absolute Manual 23.22 K/mm3 (1.3-6.7); Neutrophils Percent Manual 74 % (46-73); Total Cells Counted 100
[2022-08-22 07:51] LABS: Schistocytes None Seen (NORMAL)
--- NOTE | 2022-08-22 08:03 | PM.IMPN ---
Progress Note: A&P Assessment and Plan (1) Acute respiratory failure: Code(s): J96.00 - Acute respiratory failure, unspecified whether with hypoxia or hypercapnia Status: Acute Assessment and Plan: intubated, sedated, appreciate critical care consultation and management (2) Peritonitis: Code(s): K65.9 - Peritonitis, unspecified Status: Acute Assessment and Plan: Continue IV antibiotics and IV antifungal Cefepime, micafungin, vancomycin (3) Severe sepsis: Code(s): A41.9 - Sepsis, unspecified organism; R65.20 - Severe sepsis without septic shock Status: Acute Assessment and Plan: As above, appreciate critical care consultation Transaminitis noted, thought to be secondary to hypoperfusion from sepsis, continue supportive care, monitor Urine culture came back negative, blood cultures x2 are both negative growth to date, taken on 08/16/2022 (4) Ischemic stroke: Code(s): I63.9 - Cerebral infarction, unspecified Status: Acute Assessment and Plan: Patient with ischemic stroke and L. ICA occlusion/thrombus Neurology consult recommending aspirin, Plavix, statin, CTA head and neck, JENN as well as possibly a loop recorder 08/20: JENN was essentially unremarkable (5) COPD (chronic obstructive pulmonary disease): Qualifiers: COPD type: unspecified COPD Qualified Code(s): J44.9 - Chronic obstructive pulmonary disease, unspecified Code(s): J44.9 - Chronic obstructive pulmonary disease, unspecified Status: Chronic Assessment and Plan: Continue bronchodilators, mechanical ventilation (6) End stage renal disease: Code(s): N18.6 - End stage renal disease Status: Chronic Assessment and Plan: ESRD on PD, appreciate nephrology consultation (7) Ileus: Code(s): K56.7 - Ileus, unspecified Status: Acute Assessment and Plan: adynamic ileus suspected (8) Septic shock: Code(s): A41.9 - Sepsis, unspecified organism; R65.21 - Severe sepsis with septic shock Status: Acute Assessment and Plan: appreciate critical care consultation (9) Hypertension: Qualifiers: Hypertension type: unspecified Qualified Code(s): I10 - Essential (primary) hypertension Code(s): I10 - Essential (primary) hypertension Status: Chronic Assessment and Plan: stable Plan DVT prophylaxis with heparin GI prophylaxis with PPI Code status DNR Subjective Date/time seen: 08/22/22 08:03 Interval history: Intubated, sedated. No overnight events noted. Review of Systems Review of Systems: ROS unobtainable: Yes unobtainable due to endotracheal tube Exam Narrative: General: Intubated, sedated HEENT: Atraumatic, normocephalic CV: Regular rate and rhythm, S1, S2 Lungs: Unlabored breathing noted, no audible wheeze Abdomen: Soft, nondistended Psych: Unable to assess Objective Data Vital Signs Vital Signs: Vital Signs - 24 hr 08/21/22 08:28 08/21/22 08:50 08/21/22 08:05 Temperature 100.6 F H 100.7 F H Pulse Rate 102 H 105 H Respiratory Rate 19 Blood Pressure 119/74 Pulse Oximetry 91 Oxygen Delivery Mechanical Ventilation Fraction of Inspired Oxygen 30 08/21/22 08:15 08/21/22 08:30 08/21/22 10:00 Temperature Pulse Rate 110 H 111 H Respiratory Rate 18 Blood Pressure Pulse Oximetry Oxygen Delivery Fraction of Inspired Oxygen 30 08/21/22 10:00 08/21/22 09:50 08/21/22 11:36 Temperature 100.1 F H 100.1 F H Pulse Rate 111 H 114 H Respiratory Rate 20 Blood Pressure 160/81 H Pulse Oximetry 97 95 Oxygen Delivery Mechanical Ventilation Fraction of Inspired Oxygen 30 08/21/22 14:47 08/21/22 14:49 08/21/22 15:00 Temperature Pulse Rate 123 H 124 H 90 Respiratory Rate 26 H Blood Pressure Pulse Oximetry 96 Oxygen Delivery Mechanical Ventilation Fraction of Inspired Oxygen 30 1
[2022-08-22] MEDS: ASCORBIC ACID 250 MG TABLET PO (09:06)
[2022-08-22] MEDS: PANTOPRAZOLE SODIUM IV 40 MG VIAL IV PUSH (09:07)
[2022-08-22] MEDS: MINERAL OIL/WHITE PETROLATUM OINTMENT 1 APPLIC EACH EYE ×2 (09:07→21:32)
[2022-08-22] MEDS: CHOLECALCIFEROL 1,000 UNITS TABLET 5000 UNITS PO (09:07)
[2022-08-22] MEDS: CLOPIDOGREL BISULFATE 75 MG TABLET PO (09:08)
[2022-08-22] MEDS: ZINC SULFATE 220 MG CAPSULE PO (09:08)
[2022-08-22] MEDS: ASPIRIN 81 MG CHEWABLE TABLET PO (09:08)
[2022-08-22] MEDS: CYANOCOBALAMIN 500 MCG TABLET PO (09:08)
--- NOTE | 2022-08-22 09:09 | WPDINTPN ---
Progress Note: A&P Assessment and Plan (1) Acute respiratory failure: Code(s): J96.00 - Acute respiratory failure, unspecified whether with hypoxia or hypercapnia Status: Acute Assessment and Plan: Acute respiratory failure, patient was intubated on 08/16/2022 in early hours -patient was found to be in respiratory distress, altered mental status, unable to protect his airway -respiratory failure likely related to mental status issues and or infectious cause/severe sepsis -patient currently on CMV mode of ventilation, peep of 5, 30% FiO2, -ABGs reviewed -change rate to 15 and tidal volume 320 -I placed patient on pressure support 09/15 to obtain Adequate RSBI. Continue as tolerated -weaning will depend on respiratory improvement and improvement is neurological status -chest CT reviewed -mild emphysema. -chest x-ray pending -continue Xopenex and Atrovent -patient is sedated with Precedex which is currently off at this time for sedation holidayl (2) Peritonitis: Code(s): K65.9 - Peritonitis, unspecified Status: Acute Assessment and Plan: Patient presented to the ED on 08/14/2022 with complains of diffuse abdominal pain x1 week. Paracentesis revealed peritonitis, and peritoneal fluid grew Staph epidermiis -patient was initially started on intraperitoneal ceftazidime and IV vancomycin (08/14) - 08/20-empiric micafungin was added after discussion with Nephrology due to persistent elevated WBC and fevers - 08/21-change cefepime to Zosyn -continue vancomycin Zosyn and micafungin -repeat peritoneal fluid analysis on 08/16 showed improvement in the white blood cells, more clear and colorless. (3) Severe sepsis: Code(s): A41.9 - Sepsis, unspecified organism; R65.20 - Severe sepsis without septic shock Status: Acute Assessment and Plan: Patient with severe sepsis, leukocytosis, lactic acidosis, hypotension, acute respiratory failure, peritonitis Off Levophed at this time He continues to have fever and elevated WBC Anti fungal therapy added empirically to antibiotic therapy for peritonitis Patient does have thick secretions coming out but CT chest did not show any significant pneumonia CT chest abdomen pelvis was done IMPRESSION: 1. Dilated small bowel without transition point, likely adynamic ileus. 2. Mild emphysema. 3. Endotracheal tube tip 6 mm above the shayy. 4. 15 mm cystic lesion in the pancreas. The differential diagnosis includes pseudocyst, intraductal papillary mucinous neoplasm (IPMN), mucinous cystic neoplasm (MCN), serous cystadenoma, and neuroendocrine tumor. Abdomen MRI without and with contrast is recommended in one year. 5. Small volume of ascites with peritoneal dialysis catheter 08/21 change cefepime to Zosyn Right upper quadrant ultrasound was unremarkable -continue vancomycin Zosyn and micafungin (4) Ischemic stroke: Code(s): I63.9 - Cerebral infarction, unspecified Status: Acute Assessment and Plan: Patient with bilateral multifocal ischemic stroke 08/14/2022 CT brain showed old lacunar infarct, right caudate nucleus, no intracranial bleeding. 08/15/2022 MRI brain showed scattered small acute infarcts bilateral frontal and parietal lobes, loss of normal flow void noted to left carotid artery suggesting slow flow or thrombus noted. 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 Suggestion of either slow flow potentially occlusion of the right vertebral artery. 08/16: This morning patient was unable to follow commands on his right upper and lower extremity, right side was flaccid, he was withdrawing to pain on the right upper and lower extremity. 08/16 CT scan of the brain : Cerebral atherosclerosis and chronic small vessel ischemic changes of the cerebral white matter No intracranial mass lesion or hemorrhage, midline shift or mass effect effect Moderate cerebr
[2022-08-22] MEDS: EPOETIN ALFA-EPBX 10,000 UNITS/ML VIAL 10000 UNITS SUB-Q (09:38)
[2022-08-22] MEDS: MICAFUNGIN SODIUM 100 MG in SODIUM CHLORIDE 0.9% IV 100 ML IVPB (09:46)
--- NOTE | 2022-08-22 11:28 | PCNFU ---
Nutrition Follow-Up Complete: Increased protein energy needs related to mechanical ventilation, sepsis as evidenced by need for full tube feeding Goal: Tolerate tube feeding at goal rate Pt current nutrition is Nepro @ 20 ml/h. Nutrition recommendation: Advance Nepro to goal rate 45 ml/h with 30 ml flushes q 4 hours. Provides 1782 kcal, 80 g protein, 827 ml free water. Last recorded weight is 63.6 kg. Bowel Motility: + BM 08/21/22 Labs Reviewed: Alb 3.0, Na 134, BUN 61, Creat 7.2, PO4 5.7 Meds Noted: No pressors. Sedation with precedex only Skin: WNL Additional Notes: TF was down to 20 ml/h due to weaning trial. Advance back to goal. Monitoring labs, weights, tube feeding tolerance, plan of care, meds. Follow up Thursday and Thursday per policy.
[2022-08-22] MEDS: LABETALOL HCL INJ 100 MG/20 ML VIAL 20 MG IV PUSH (11:37)
[2022-08-22 11:55] LABS: Glucose Point of Care 130 mg/dl (65-105)
--- NOTE | 2022-08-22 12:42 | PM.PNNEP ---
Progress Note: A&P Assessment and Plan (1) End stage renal disease: Code(s): N18.6 - End stage renal disease Status: Chronic Assessment and Plan: continue nightly peritoneal dialysis follow electrolytes, volume status and clearance adjust PD Rx to maintain I/Os (2) Peritonitis: Code(s): K65.9 - Peritonitis, unspecified Status: Acute Assessment and Plan: as evidenced by symptoms and PD fluid cell count on admission PD fluid culture results noted continue IV vancomycin - transition to IP vancomycin on discharge if needed repeat PD fluid cell count improving (3) Sepsis: Code(s): A41.9 - Sepsis, unspecified organism Status: Acute Assessment and Plan: as noted with leukocytosis, fever, hypotension, acute respiratory failure, and peritonitis follow culture data off vasopressor support at this time on IV antibiotics/antifungals (4) Acute respiratory failure: Code(s): J96.00 - Acute respiratory failure, unspecified whether with hypoxia or hypercapnia Status: Acute Assessment and Plan: intubated (08/16/22) due to respiratory distress, altered mental status and inability to protect his airway further complicated by COPD and ongoing smoking continue ventilator support continue bronchodilators (5) Ischemic stroke: Code(s): I63.9 - Cerebral infarction, unspecified Status: Acute Assessment and Plan: imaging to date consistent with stroke carotid dopplers showing a left carotid occlusion and right vertebral artery occlusion Neurology recommendations noted JENN results noted CTA of head + neck results reviewed (6) 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 Subjective Date/time seen: 08/22/22 12:42 Remains intubated/sedated and on mechanical ventilation at the time of my visit; tolerated peritoneal dialysis treatment overnight although ultrafiltration was somewhat limited (perhaps he is just intravascularly dry); afebrile for the last 24 hours; Exam Narrative: General: WD/WN male intubated/sedated and on ventilator Heart: normal S1 and S2; no rub Lungs: coarse breath sounds Abdomen: soft, nontender, nondistended, positive bowel sounds Extremities: no cyanosis or clubbing; no edema Skin: no nodules Objective Data Vital Signs Vital Signs: Vital Signs Temp Pulse Resp BP Pulse Ox O2 Del Method FiO2 08/22/22 11:31 37.6 C H 105 H 23 H 96 08/22/22 11:30 37.6 C H 102 H 20 162/80 H 96 08/22/22 11:15 37.6 C H 107 H 24 H 96 08/22/22 11:01 37.6 C H 100 17 95 08/22/22 11:00 37.6 C H 101 H 16 164/82 H 95 08/22/22 10:45 37.6 C H 101 H 19 96 08/22/22 10:31 37.6 C H 102 H 20 96 08/22/22 10:30 37.6 C H 98 17 147/73 H 96 08/22/22 10:15 37.6 C H 102 H 26 H 96 08/22/22 10:01 37.6 C H 96 18 96 08/22/22 10:00 37.6 C H 100 21 H 130/79 96 08/22/22 09:45 37.6 C H 100 22 H 96 08/22/22 09:31 37.6 C 91 15 96 08/22/22 09:30 37.6 C 95 18 155/79 H 96 08/22/22 09:15 37.6 C 101 H 24 H 96 08/22/22 09:01 37.5 C 98 26 H 97 08/22/22 09:00 37.5 C 95 23 H 135/79 97 08/22/22 08:45 37.5 C 91 23 H 97 08/22/22 08:31 37.5 C 96 24 H 97 08/22/22 08:30 37.5 C 96 24 H 132/74 97 08/22/22 08:15 37.5 C 96 25 H 97 08/22/22 08:01 37.5 C 99 27 H 94 08/22/22 08:00 37.5 C 99 28 H 139/79 94 08/22/22 07:45 37.5 C 97 24 H 96 08/22/22 07:31 37.5 C 100 23 H 96 08/22/22 07:30 37.5 C 93 17 154/73 H 96 08/22/22 07:15 37.5 C 90 19 95 08/22/22 07:01 37.4 C 97 22 H 95 08/22/22 07:00 37.4 C 89 18 137/69 95 08/22/22 06:45 37.4 C 97 22 H 95 11
--- NOTE | 2022-08-22 12:42 | P.PNNP_ITS ---
Progress Note: A&P Assessment and Plan (1) End stage renal disease: Code(s): N18.6 - End stage renal disease Status: Chronic Assessment and Plan: * continue nightly peritoneal dialysis * follow electrolytes, volume status and clearance * adjust PD Rx to maintain I/Os (2) Peritonitis: Code(s): K65.9 - Peritonitis, unspecified Status: Acute Assessment and Plan: * as evidenced by symptoms and PD fluid cell count on admission * PD fluid culture results noted * continue IV vancomycin - transition to IP vancomycin on discharge if needed * repeat PD fluid cell count improving (3) Sepsis: Code(s): A41.9 - Sepsis, unspecified organism Status: Acute Assessment and Plan: * as noted with leukocytosis, fever, hypotension, acute respiratory failure, and peritonitis * follow culture data * off vasopressor support at this time * on IV antibiotics/antifungals (4) Acute respiratory failure: Code(s): J96.00 - Acute respiratory failure, unspecified whether with hypoxia or hypercapnia Status: Acute Assessment and Plan: * intubated (08/16/22) due to respiratory distress, altered mental status and inability to protect his airway * further complicated by COPD and ongoing smoking * continue ventilator support * continue bronchodilators (5) Ischemic stroke: Code(s): I63.9 - Cerebral infarction, unspecified Status: Acute Assessment and Plan: * imaging to date consistent with stroke * 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 Subjective Date/time seen: 08/22/22 12:42 Remains intubated/sedated and on mechanical ventilation at the time of my visit; tolerated peritoneal dialysis treatment overnight although ultrafiltration was somewhat limited (perhaps he is just intravascularly dry); afebrile for the last 24 hours; Exam Narrative: General: WD/WN male intubated/sedated and on ventilator Heart: normal S1 and S2; no rub Lungs: coarse breath sounds Abdomen: soft, nontender, nondistended, positive bowel sounds Extremities: no cyanosis or clubbing; no edema Skin: no nodules Objective Data Vital Signs Vital Signs: Vital Signs Temp Pulse Resp BP Pulse Ox O2 Del Method FiO2 08/22/22 11:31 37.6 C H 105 H 23 H 96 08/22/22 11:30 37.6 C H 102 H 20 162/80 H 96 08/22/22 11:15 37.6 C H 107 H 24 H 96 08/22/22 11:01 37.6 C H 100 17 95 08/22/22 11:00 37.6 C H 101 H 16 164/82 H 95 08/22/22 10:45 37.6 C H 101 H 19 96 08/22/22 10:31 37.6 C H 102 H 20 96 08/22/22 10:30 37.6 C H 98 17 147/73 H 96 08/22/22 10:15 37.6 C H 102 H 26 H 96 08/22/22 10:01 37.6 C H 96 18 96 08/22/22 10:00 37.6 C H 100 21 H 130/79 96 08/22/22 09:45 37.6 C H 100 22 H 96 08/22/22 09:31 37.6 C 91 15 96 08/22/22 09:30 37.6 C 95 18 155/79 H 96 08/22/22 09:15 37.6 C 101 H 24 H 9
[2022-08-22] MEDS: ACETAMINOPHEN 325 MG TABLET 650 MG PO (15:17)
[2022-08-22 18:16] LABS: Glucose Point of Care 135 mg/dl (65-105)
[2022-08-23] VITALS (36 sets, daily range): BP systolic 91–150; BP diastolic 72–97; PULSE 84–108; RESP 16–37; TEMP 37.8–38.7; O2SAT 22–98
[2022-08-23 00:05] LABS: Glucose Point of Care 142 mg/dl (65-105)
[2022-08-23] MEDS: METOCLOPRAMIDE HCL INJ 10 MG/2 ML VIAL IV PUSH ×2 (00:23→06:28)
[2022-08-23] MEDS: ACETAMINOPHEN 325 MG TABLET 650 MG PO (02:55)
[2022-08-23] MEDS: IPRATROPIUM BR 0.02% INH SOLN 0.5 MG/2.5 ML VIAL INHALATION ×4 (03:10→21:00)
[2022-08-23] MEDS: LEVALBUTEROL NEB 1.25 MG/3 ML 0.63 MG INHALATION ×4 (03:10→21:00)
[2022-08-23 05:36] LABS: Hematocrit 30.5 % (42.0-52.0); Hemoglobin 9.9 g/dL (14.0-18.0); Mean Corpuscular HGB Conc 32.5 g/dl (32-36); Mean Corpuscular Hemoglobin 31.1 pg (26-34); Mean Corpuscular Volume 95.9 fl (80-100); Platelet Count Result 444 k/mm3 (150-375); Red Blood Count 3.18 M/mm3 (4.6-6.20); Red Cell Distribution Width 14.3 % (11.5-14.5); White Blood Count 31.8 K/mm3 (4.5-10.0)
[2022-08-23 05:45] LABS: Alanine Aminotransferase 450 U/L (6-50); Alkaline Phosphatase 592 U/L (38-126); Anion Gap 14 mmol/L (8-16); Aspartate Amino Transferase 398 U/L (17-59); Bilirubin,Total 0.6 mg/dL (0.2-1.3); Blood Urea Nitrogen 70 mg/dL (9-20); Calcium 8.2 mg/dL (8.4-10.2); Carbon Dioxide 27 mmol/L (22-30); Chloride 93 mmol/L (98-107); Estimated CRCL calculation 7 ml/min; Estimated Glomerular Filt Rate 7; Glucose 122 mg/dL (65-110); Magnesium 2.2 mg/dL (1.6-2.3); Phosphorus 5.7 mg/dL (2.5-4.5); Potassium 3.7 mmol/L (3.4-5.0); Sodium 134 mmol/L (137-145)
[2022-08-23 05:46] LABS: Glucose Point of Care 123 mg/dl (65-105)
[2022-08-23] MEDS: CENTRAL LINE FLUSH 10 ML IV PUSH ×3 (05:49→20:36)
[2022-08-23 05:54] LABS: Vancomycin Random 25.7 ug/mL (10-20)
[2022-08-23] MEDS: dexmedeTOMIDine 400 MCG/100 ML 400 MCG/100 ML BAG IV CONT (06:27)
[2022-08-23] MEDS: HEPARIN SODIUM 5,000 UNITS/ML VIAL 5000 UNITS SUB-Q ×3 (06:28→20:36)
[2022-08-23 06:32] LABS: Alveolar/Arterial O2 Gradient 83.9 mmHg; Base Excess ABG 2.8 mEq/l (+/-2.0); Carboxyhemoglobin 0.2 % THb (0-2.0); Fractional Inspired Oxygen 30 %; HCO3 ABG 26.8 mEq/l (22.0-26.0); Methemoglobin ABG 0.1 %THb (0-1.5); Oxygen Content ABG 19.2 %vol (16.0-22.0); Oxygen Saturation ABG 96.7 % (95.0-100.0); Oxyhemoglobin 95.5 % THb (90.0-100.0); PCO2 ABG 39.2 mmHg (35.0-45.0); PO2 ABG 83.9 mmHg (80.0-100.0); Reduced Hemoglobin 4.2 %THb (0-5.0); Total Hemoglobin 14.3 g/dL (12.0-18.0); pH ABG 7.453 (7.350-7.450)
[2022-08-23 06:34] LABS: Device VENTILATOR; Modified Allen's Test Pass; Site Drawn RIGHT RADIAL
[2022-08-23 06:35] LABS: Arterial Blood Gas PEEP 5 cmH2O; Arterial Blood Gas Tidal Volume 320 ml; Arterial Blood Gas Vent Mode CMV; Arterial Blood Gas Ventilator rate 15 /MIN
[2022-08-23] MEDS: CHOLECALCIFEROL 1,000 UNITS TABLET 5000 UNITS PO (08:09)
[2022-08-23] MEDS: MINERAL OIL/WHITE PETROLATUM OINTMENT 1 APPLIC EACH EYE ×2 (08:10→20:36)
[2022-08-23] MEDS: CYANOCOBALAMIN 500 MCG TABLET PO (08:10)
[2022-08-23] MEDS: ZINC SULFATE 220 MG CAPSULE PO (08:10)
[2022-08-23] MEDS: ASPIRIN 81 MG CHEWABLE TABLET PO (08:10)
[2022-08-23] MEDS: PANTOPRAZOLE SODIUM IV 40 MG VIAL IV PUSH (08:10)
[2022-08-23] MEDS: ASCORBIC ACID 250 MG TABLET PO (08:10)
[2022-08-23] MEDS: CLOPIDOGREL BISULFATE 75 MG TABLET PO (08:10)
[2022-08-23] MEDS: MICAFUNGIN SODIUM 100 MG in SODIUM CHLORIDE 0.9% IV 100 ML IVPB (08:17)
--- NOTE | 2022-08-23 10:59 | WPDINTPN ---
Progress Note: A&P Assessment and Plan (1) Acute respiratory failure: Code(s): J96.00 - Acute respiratory failure, unspecified whether with hypoxia or hypercapnia Status: Acute Assessment and Plan: Acute respiratory failure, patient was intubated on 08/16/2022 in early hours -patient was found to be in respiratory distress, altered mental status, unable to protect his airway -respiratory failure likely related to mental status issues and or infectious cause/severe sepsis -patient currently on CMV mode of ventilation, peep of 5, 30% FiO2, -ABGs reviewed -change rate to 15 and tidal volume 320 -I placed patient on pressure support 09/15 to obtain Adequate RSBI. Continue as tolerated -weaning will depend on respiratory improvement and improvement is neurological status -chest CT reviewed -mild emphysema. -chest x-ray pending -continue Xopenex and Atrovent -patient is sedated with Precedex which is currently off at this time for sedation holidayl (2) Peritonitis: Code(s): K65.9 - Peritonitis, unspecified Status: Acute Assessment and Plan: Patient presented to the ED on 08/14/2022 with complains of diffuse abdominal pain x1 week. Paracentesis revealed peritonitis, and peritoneal fluid grew Staph epidermiis -patient was initially started on intraperitoneal ceftazidime and IV vancomycin (08/14) - 08/20-empiric micafungin was added after discussion with Nephrology due to persistent elevated WBC and fevers - 08/21-change cefepime to Zosyn -continue vancomycin Zosyn and micafungin -repeat peritoneal fluid analysis on 08/16 showed improvement in the white blood cells, more clear and colorless. -will send peritoneal fluid again for cell count Gram stain and cultures in light of persistent fever -will discuss with Nephrology (3) Severe sepsis: Code(s): A41.9 - Sepsis, unspecified organism; R65.20 - Severe sepsis without septic shock Status: Acute Assessment and Plan: Patient with severe sepsis, leukocytosis, lactic acidosis, hypotension, acute respiratory failure, peritonitis Off Levophed at this time He continues to have fever and elevated WBC Anti fungal therapy added empirically to antibiotic therapy for peritonitis Patient does have thick secretions coming out but CT chest did not show any significant pneumonia CT chest abdomen pelvis was done IMPRESSION: 1. Dilated small bowel without transition point, likely adynamic ileus. 2. Mild emphysema. 3. Endotracheal tube tip 6 mm above the shayy. 4. 15 mm cystic lesion in the pancreas. The differential diagnosis includes pseudocyst, intraductal papillary mucinous neoplasm (IPMN), mucinous cystic neoplasm (MCN), serous cystadenoma, and neuroendocrine tumor. Abdomen MRI without and with contrast is recommended in one year. 5. Small volume of ascites with peritoneal dialysis catheter 08/21 changed cefepime to Zosyn Right upper quadrant ultrasound was unremarkable Continue vancomycin Zosyn and micafungin Continues to have fever and elevated WBC Will recent peritoneal fluid for Gram stain culture and cell counts (4) Ischemic stroke: Code(s): I63.9 - Cerebral infarction, unspecified Status: Acute Assessment and Plan: Patient with bilateral multifocal ischemic stroke 08/14/2022 CT brain showed old lacunar infarct, right caudate nucleus, no intracranial bleeding. 08/15/2022 MRI brain showed scattered small acute infarcts bilateral frontal and parietal lobes, loss of normal flow void noted to left carotid artery suggesting slow flow or thrombus noted. 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 Suggestion of either slow flow potentially occlusion of the right vertebral artery. 08/16: This morning patient was unable to follow commands on his right upper and lower extremity, right side was flaccid, he was withdrawing to pain on the right upper
[2022-08-23 12:08] LABS: Glucose Point of Care 144 mg/dl (65-105)
--- NOTE | 2022-08-23 12:08 | PM.PNNEP ---
Progress Note: A&P Assessment and Plan (1) End stage renal disease: Code(s): N18.6 - End stage renal disease Status: Chronic Assessment and Plan: continue nightly peritoneal dialysis follow electrolytes, volume status and clearance adjust PD Rx to maintain I/Os (2) Peritonitis: Code(s): K65.9 - Peritonitis, unspecified Status: Acute Assessment and Plan: as evidenced by symptoms and PD fluid cell count on admission PD fluid culture results noted continue IV vancomycin - transition to IP vancomycin on discharge if needed repeat PD fluid cell count improving (3) Sepsis: Code(s): A41.9 - Sepsis, unspecified organism Status: Acute Assessment and Plan: as noted with leukocytosis, fever, hypotension, acute respiratory failure, and peritonitis follow culture data off vasopressor support at this time on IV antibiotics/antifungals repeat PD fluid cell count noted (repeat culture pending) (4) Acute respiratory failure: Code(s): J96.00 - Acute respiratory failure, unspecified whether with hypoxia or hypercapnia Status: Acute Assessment and Plan: intubated (08/16/22) due to respiratory distress, altered mental status and inability to protect his airway further complicated by COPD and ongoing smoking continue ventilator support continue bronchodilators (5) Ischemic stroke: Code(s): I63.9 - Cerebral infarction, unspecified Status: Acute Assessment and Plan: imaging to date consistent with stroke carotid dopplers showing a left carotid occlusion and right vertebral artery occlusion Neurology recommendations noted JENN results noted CTA of head + neck results reviewed fluctuating mentation noted with sedation holiday (6) 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 Subjective Date/time seen: 08/23/22 12:08 Tolerated peritoneal dialysis overnight without any issues or prolems; remains on ventilator support at this time; remains hemodynamically stable without the need for vasopressor therapy; continues to have low grade fevers despite interventions to date; no other issues/events overnight or earlier this AM. Exam Narrative: General: WD/WN male intubated/sedated and on ventilator Heart: normal S1 and S2; no rub Lungs: coarse breath sounds Abdomen: soft, nontender, nondistended, positive bowel sounds Extremities: no cyanosis or clubbing; no edema Skin: warm and intact Objective Data Vital Signs Vital Signs: Vital Signs Temp Pulse Resp BP Pulse Ox O2 Del Method FiO2 08/23/22 12:00 105 H 08/23/22 12:00 37.8 C H 107 H 19 118/75 98 08/23/22 12:01 103 H 98 Mechanical Ventilation 30 08/23/22 12:00 30 08/23/22 11:58 108 H 20 98 Mechanical Ventilation 30 08/23/22 10:53 37.9 C H 108 H 22 H 140/87 97 08/23/22 10:00 108 H 19 140/87 97 08/23/22 10:00 106 H 08/23/22 09:29 104 H 17 08/23/22 09:26 104 H 97 Mechanical Ventilation 30 08/23/22 09:17 107 H 32 H 08/23/22 08:00 37.9 C H 108 H 32 H 129/76 96 08/23/22 08:00 108 H 08/23/22 08:09 106 H 28 H 08/23/22 08:00 30 08/23/22 06:27 103 H 28 H 08/23/22 06:02 103 H 28 H 08/23/22 06:09 103 H 95 Mechanical Ventilation 30 08/23/22 05:37 38.2 C H 104 H 30 H 129/73 97 08/23/22 04:00 98 30 H 91/72 L 96 08/23/22 04:00 98 08/23/22 04:00 30 08/23/22 04:00 Mechanical Ventilation 30 08/23/22 03:25 99 29 H 08/23/22 03:13 100 97 Mechanical Ventilation 30 08/23/22 03:12 100 29 H 08/23/22 02:55 38.7 C H 08/23/22 02:00 104 H 28 H 136/97 H 96 08/22/22 20:29 104 H 28 H
--- NOTE | 2022-08-23 12:08 | P.PNNP_ITS ---
Progress Note: A&P Assessment and Plan (1) End stage renal disease: Code(s): N18.6 - End stage renal disease Status: Chronic Assessment and Plan: * continue nightly peritoneal dialysis * follow electrolytes, volume status and clearance * adjust PD Rx to maintain I/Os (2) Peritonitis: Code(s): K65.9 - Peritonitis, unspecified Status: Acute Assessment and Plan: * as evidenced by symptoms and PD fluid cell count on admission * PD fluid culture results noted * continue IV vancomycin - transition to IP vancomycin on discharge if needed * repeat PD fluid cell count improving (3) Sepsis: Code(s): A41.9 - Sepsis, unspecified organism Status: Acute Assessment and Plan: * as noted with leukocytosis, fever, hypotension, acute respiratory failure, and peritonitis * follow culture data * off vasopressor support at this time * on IV antibiotics/antifungals * repeat PD fluid cell count noted (repeat culture pending) (4) Acute respiratory failure: Code(s): J96.00 - Acute respiratory failure, unspecified whether with hypoxia or hypercapnia Status: Acute Assessment and Plan: * intubated (08/16/22) due to respiratory distress, altered mental status and inability to protect his airway * further complicated by COPD and ongoing smoking * continue ventilator support * continue bronchodilators (5) Ischemic stroke: Code(s): I63.9 - Cerebral infarction, unspecified Status: Acute Assessment and Plan: * imaging to date consistent with stroke * carotid dopplers showing a left carotid occlusion and right vertebral artery occlusion * Neurology recommendations noted * JENN results noted * CTA of head + neck results reviewed * fluctuating mentation noted with sedation holiday (6) 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 Subjective Date/time seen: 08/23/22 12:08 Tolerated peritoneal dialysis overnight without any issues or prolems; remains on ventilator support at this time; remains hemodynamically stable without the need for vasopressor therapy; continues to have low grade fevers despite interventions to date; no other issues/events overnight or earlier this AM. Exam Narrative: General: WD/WN male intubated/sedated and on ventilator Heart: normal S1 and S2; no rub Lungs: coarse breath sounds Abdomen: soft, nontender, nondistended, positive bowel sounds Extremities: no cyanosis or clubbing; no edema Skin: warm and intact Objective Data Vital Signs Vital Signs: Vital Signs Temp Pulse Resp BP Pulse Ox O2 Del Method FiO2 08/23/22 12:00 105 H 08/23/22 12:00 37.8 C H 107 H 19 118/75 98 08/23/22 12:01 103 H 98 Mechanical Ventilation 30 08/23/22 12:00 30 08/23/22 11:58 108 H 20 98 Mechanical Ventilation 30 08/23/22 10:53 37.9 C H 108 H 22 H 140/87 97 08/23/22 10:00 108 H 19 140/87 97 08/23/22 10:00 106 H 08/23/22 09:29 104 H 17 08/23/22 09:26 104 H 97 Mechanical Ventilation 30 08/23/22 09:17 107 H 32 H 08/23/22 08:00 37.9 C H 108 H 32 H 129/76 96
[2022-08-23 12:25] LABS: Glucose Point of Care 165 mg/dl (65-105)
[2022-08-23 12:31] LABS: Appearance Peritoneal Fluid Clear (Clear); Color Peritoneal Fluid Colorless (Colorless); Lymphocytes Peritoneal Fluid 12 %; Mesothelial Cells Peritoneal Fluid 12 %; Monocytes Peritoneal Fluid 5 %; Neutrophils Peritoneal Fluid 71 % (0-25); Nucleated Cells Peritoneal Flu 33 /uL (0-500); RBC Peritoneal Fluid 17 /uL (0-100000); Source Peritoneal Fluid Peritoneal Fluid
[2022-08-23] MEDS: LABETALOL HCL INJ 100 MG/20 ML VIAL 20 MG IV PUSH (13:33)
[2022-08-23 17:12] LABS: Glucose Point of Care 123 mg/dl (65-105)
[2022-08-24] VITALS (29 sets, daily range): BP systolic 103–169; BP diastolic 70–93; PULSE 82–114; RESP 17–35; TEMP 37.2–38; O2SAT 94–99
[2022-08-24 01:02] LABS: Glucose Point of Care 173 mg/dl (65-105)
[2022-08-24] MEDS: LEVALBUTEROL NEB 1.25 MG/3 ML 0.63 MG INHALATION ×4 (01:54→20:58)
[2022-08-24] MEDS: IPRATROPIUM BR 0.02% INH SOLN 0.5 MG/2.5 ML VIAL INHALATION ×4 (01:54→20:58)
--- NOTE | 2022-08-24 03:39 | PCRCNOTE ---
placed pt back on CMV do to increased rr and secretions suctioned large thick valdovinos/yellow/creamy settings [id number] rr 15 peep5
[2022-08-24 04:53] LABS: Hematocrit 29.3 % (42.0-52.0); Hemoglobin 9.5 g/dL (14.0-18.0); Mean Corpuscular HGB Conc 32.4 g/dl (32-36); Mean Corpuscular Hemoglobin 31.1 pg (26-34); Mean Corpuscular Volume 96.1 fl (80-100); Platelet Count Result 419 k/mm3 (150-375); Red Blood Count 3.05 M/mm3 (4.6-6.20); Red Cell Distribution Width 14.4 % (11.5-14.5); White Blood Count 38.5 K/mm3 (4.5-10.0)
[2022-08-24 05:03] LABS: Alanine Aminotransferase 378 U/L (6-50); Albumin Level 2.9 g/dL (3.5-5.1); Alkaline Phosphatase 573 U/L (38-126); Anion Gap 13 mmol/L (8-16); Aspartate Amino Transferase 275 U/L (17-59); Bilirubin,Total 0.4 mg/dL (0.2-1.3); Blood Urea Nitrogen 78 mg/dL (9-20); Calcium 8.2 mg/dL (8.4-10.2); Carbon Dioxide 27 mmol/L (22-30); Chloride 93 mmol/L (98-107); Estimated CRCL calculation 7 ml/min; Estimated Glomerular Filt Rate 7; Glucose 154 mg/dL (65-110); Magnesium 2.2 mg/dL (1.6-2.3); Phosphorus 7.1 mg/dL (2.5-4.5); Potassium 3.5 mmol/L (3.4-5.0); Sodium 133 mmol/L (137-145)
[2022-08-24] MEDS: HEPARIN SODIUM 5,000 UNITS/ML VIAL 5000 UNITS SUB-Q ×3 (05:52→20:52)
[2022-08-24] MEDS: CENTRAL LINE FLUSH 10 ML IV PUSH ×3 (05:53→20:53)
[2022-08-24 05:59] LABS: Alveolar/Arterial O2 Gradient 80.9 mmHg; Carboxyhemoglobin 0.3 % THb (0-2.0); Fractional Inspired Oxygen 30 %; HCO3 ABG 28.2 mEq/l (22.0-26.0); Methemoglobin ABG 0.2 %THb (0-1.5); Oxygen Content ABG 14.8 %vol (16.0-22.0); Oxygen Saturation ABG 96.8 % (95.0-100.0); Oxyhemoglobin 94.9 % THb (90.0-100.0); PCO2 ABG 40.9 mmHg (35.0-45.0); PO2 ABG 84.9 mmHg (80.0-100.0); PO2 FiO2 Ratio Arterial Blood 2.83 %; Reduced Hemoglobin 4.6 %THb (0-5.0); pH ABG 7.456 (7.350-7.450)
[2022-08-24 06:00] LABS: Site Drawn RIGHT RADIAL
[2022-08-24 06:01] LABS: Arterial Blood Gas PEEP 5 cmH2O; Arterial Blood Gas Vent Mode CMV; Arterial Blood Gas Ventilator rate 15 /MIN; Device VENTILATOR; Modified Allen's Test Pass
[2022-08-24 06:02] LABS: Arterial Blood Gas Tidal Volume 320 ml
--- NOTE | 2022-08-24 08:42 | PM.IMPN ---
Progress Note: A&P Assessment and Plan (1) Acute respiratory failure: Code(s): J96.00 - Acute respiratory failure, unspecified whether with hypoxia or hypercapnia Status: Acute Assessment and Plan: intubated, sedated, appreciate critical care consultation and management (2) Peritonitis: Code(s): K65.9 - Peritonitis, unspecified Status: Acute Assessment and Plan: Continue IV antibiotics and IV antifungal Cefepime, micafungin, vancomycin Persistent fever, peritoneal fluid resent (3) Severe sepsis: Code(s): A41.9 - Sepsis, unspecified organism; R65.20 - Severe sepsis without septic shock Status: Acute Assessment and Plan: As above, appreciate critical care consultation Transaminitis noted, thought to be secondary to hypoperfusion from sepsis, continue supportive care, monitor Urine culture came back negative, blood cultures x2 are both negative growth to date, taken on 08/16/2022 (4) Ischemic stroke: Code(s): I63.9 - Cerebral infarction, unspecified Status: Acute Assessment and Plan: Patient with ischemic stroke and L. ICA occlusion/thrombus Neurology consult recommending aspirin, Plavix, statin, CTA head and neck, JENN as well as possibly a loop recorder 08/20: JENN was essentially unremarkable (5) COPD (chronic obstructive pulmonary disease): Qualifiers: COPD type: unspecified COPD Qualified Code(s): J44.9 - Chronic obstructive pulmonary disease, unspecified Code(s): J44.9 - Chronic obstructive pulmonary disease, unspecified Status: Chronic Assessment and Plan: Continue bronchodilators, mechanical ventilation (6) End stage renal disease: Code(s): N18.6 - End stage renal disease Status: Chronic Assessment and Plan: ESRD on PD, appreciate nephrology consultation (7) Ileus: Code(s): K56.7 - Ileus, unspecified Status: Acute Assessment and Plan: adynamic ileus suspected (8) Septic shock: Code(s): A41.9 - Sepsis, unspecified organism; R65.21 - Severe sepsis with septic shock Status: Acute Assessment and Plan: appreciate critical care consultation (9) Hypertension: Qualifiers: Hypertension type: unspecified Qualified Code(s): I10 - Essential (primary) hypertension Code(s): I10 - Essential (primary) hypertension Status: Chronic Assessment and Plan: stable Plan DVT prophylaxis with heparin GI prophylaxis with PPI Code status DNR Subjective Date/time seen: 08/24/22 08:42 Interval history: int/sedated. tolerating tube feeds, AFVSS Review of Systems Review of Systems: ROS unobtainable: Yes unobtainable due to endotracheal tube Exam Narrative: General: Intubated, sedated HEENT: Atraumatic, normocephalic CV: Regular rate and rhythm, S1, S2 Lungs: Unlabored breathing noted, no audible wheeze Abdomen: Soft, nondistended Psych: Unable to assess Objective Data Vital Signs Vital Signs: Vital Signs - 24 hr 08/23/22 09:17 08/23/22 09:26 08/23/22 09:29 Temperature Pulse Rate 107 H 104 H 104 H Respiratory Rate 32 H 17 Blood Pressure Pulse Oximetry 97 Oxygen Delivery Mechanical Ventilation Fraction of Inspired Oxygen 30 08/23/22 10:00 08/23/22 10:00 08/23/22 10:53 Temperature 100.2 F H Pulse Rate 106 H 108 H 108 H Respiratory Rate 19 22 H Blood Pressure 140/87 140/87 Pulse Oximetry 97 97 Oxygen Delivery Fraction of Inspired Oxygen 08/23/22 11:58 08/23/22 12:00 08/23/22 12:01 Temperature Pulse Rate 108 H 103 H Respiratory Rate 20 Blood Pressure Pulse Oximetry 98 98 Oxygen Delivery Mechanical Ventilation Mechanical Ventilation Fraction of Inspired Oxygen 30 30 30 08/23/22 12:00 08/23/22 12:00 08/23/22 13:33 Temperature 100.1 F H Pulse Rate 107 H 105 H 107 H Respiratory Rate 19 Blood Pressure 118/75 Pulse Oximetry 98 Oxygen Deliv
[2022-08-24] MEDS: MICAFUNGIN SODIUM 100 MG in SODIUM CHLORIDE 0.9% IV 100 ML IVPB (09:17)
[2022-08-24] MEDS: PANTOPRAZOLE SODIUM IV 40 MG VIAL IV PUSH (09:18)
[2022-08-24] MEDS: MINERAL OIL/WHITE PETROLATUM OINTMENT 1 APPLIC EACH EYE ×2 (09:18→20:52)
[2022-08-24] MEDS: ASCORBIC ACID 250 MG TABLET PO (09:18)
[2022-08-24] MEDS: CHOLECALCIFEROL 1,000 UNITS TABLET 5000 UNITS PO (09:18)
[2022-08-24] MEDS: CYANOCOBALAMIN 500 MCG TABLET PO (09:19)
[2022-08-24] MEDS: ZINC SULFATE 220 MG CAPSULE PO (09:19)
[2022-08-24] MEDS: CLOPIDOGREL BISULFATE 75 MG TABLET PO (09:19)
[2022-08-24] MEDS: ASPIRIN 81 MG CHEWABLE TABLET PO (09:19)
--- NOTE | 2022-08-24 10:49 | WPDINTPN ---
Progress Note: A&P Assessment and Plan (1) Acute respiratory failure: Code(s): J96.00 - Acute respiratory failure, unspecified whether with hypoxia or hypercapnia Status: Acute Assessment and Plan: Acute respiratory failure, patient was intubated on 08/16/2022 in early hours -patient was found to be in respiratory distress, altered mental status, unable to protect his airway -respiratory failure likely related to mental status issues and or infectious cause/severe sepsis -patient currently on CMV mode of ventilation, peep of 5, 30% FiO2, -ABGs reviewed -continue rate to 15 and tidal volume 320 -I placed patient on pressure support 09/15. He needs pressure support of 09/15 for to obtain Adequate RSBI. Continue as tolerated -weaning will depend on respiratory improvement and improvement in is neurological status -chest CT reviewed -mild emphysema. -chest x-ray reviewed -continue Xopenex and Atrovent -patient is sedated with Precedex which is currently off at this time for sedation holiday (2) Severe sepsis: Code(s): A41.9 - Sepsis, unspecified organism; R65.20 - Severe sepsis without septic shock Status: Acute Assessment and Plan: Patient with severe sepsis, leukocytosis, lactic acidosis, hypotension, acute respiratory failure, peritonitis -patient was initially started on intraperitoneal ceftazidime and IV vancomycin (08/14) - 08/20-empiric micafungin was added after discussion with Nephrology due to persistent elevated WBC and fevers - 08/21-change cefepime to Zosyn Patient does have thick secretions coming out but CT chest did not show any significant pneumonia CT chest abdomen pelvis was done IMPRESSION: 1. Dilated small bowel without transition point, likely adynamic ileus. 2. Mild emphysema. 3. Endotracheal tube tip 6 mm above the shayy. 4. 15 mm cystic lesion in the pancreas. The differential diagnosis includes pseudocyst, intraductal papillary mucinous neoplasm (IPMN), mucinous cystic neoplasm (MCN), serous cystadenoma, and neuroendocrine tumor. Abdomen MRI without and with contrast is recommended in one year. 5. Small volume of ascites with peritoneal dialysis catheter Right upper quadrant ultrasound was unremarkable 08/23 peritoneal fluid was resend for for Gram stain culture and cell counts. Cell count appears to be improved although Gram stain and culture pending He continues to have fever and elevated WBC Sputum culture is growing stenotrophomonas multiple Continue vancomycin Zosyn and micafungin. Add Levaquin 08/24 to cover for stenotrophomonas Continues to have fever and elevated WBC Repeat CT scan (3) Peritonitis: Code(s): K65.9 - Peritonitis, unspecified Status: Acute Assessment and Plan: Patient presented to the ED on 08/14/2022 with complains of diffuse abdominal pain x1 week. Paracentesis revealed peritonitis, and peritoneal fluid grew Staph epidermiis -continue vancomycin Zosyn and micafungin -repeat peritoneal fluid analysis on 08/16 showed improvement in the white blood cells, more clear and colorless. -will send peritoneal fluid again for cell count Gram stain and cultures in light of persistent fever -will discuss with Nephrology (4) Ischemic stroke: Code(s): I63.9 - Cerebral infarction, unspecified Status: Acute Assessment and Plan: Patient with bilateral multifocal ischemic stroke 08/14/2022 CT brain showed old lacunar infarct, right caudate nucleus, no intracranial bleeding. 08/15/2022 MRI brain showed scattered small acute infarcts bilateral frontal and parietal lobes, loss of normal flow void noted to left carotid artery suggesting slow flow or thrombus noted. 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 Suggestion of either slow flow potentially occlusion of the right vertebral artery. 08/16: This morning patient was unable to follo
[2022-08-24 12:09] LABS: Glucose Point of Care 120 mg/dl (65-105)
--- NOTE | 2022-08-24 12:17 | PM.PNNEP ---
Progress Note: A&P Assessment and Plan (1) End stage renal disease: Code(s): N18.6 - End stage renal disease Status: Chronic Assessment and Plan: continue nightly peritoneal dialysis follow electrolytes, volume status and clearance adjust PD Rx to maintain I/Os (2) Peritonitis: Code(s): K65.9 - Peritonitis, unspecified Status: Acute Assessment and Plan: as evidenced by symptoms and PD fluid cell count on admission PD fluid culture results noted repeat PD fluid cell count improving (3) Sepsis: Code(s): A41.9 - Sepsis, unspecified organism Status: Acute Assessment and Plan: as noted with leukocytosis, fever, hypotension, acute respiratory failure, and peritonitis follow culture data off vasopressor support at this time on IV antibiotics/antifungals continues to have on/off fevers with ongoing leukocytosis repeat PD fluid cell count noted (4) Acute respiratory failure: Code(s): J96.00 - Acute respiratory failure, unspecified whether with hypoxia or hypercapnia Status: Acute Assessment and Plan: intubated (08/16/22) due to respiratory distress, altered mental status and inability to protect his airway further complicated by COPD and ongoing smoking continue ventilator support continue bronchodilators (5) Ischemic stroke: Code(s): I63.9 - Cerebral infarction, unspecified Status: Acute Assessment and Plan: imaging to date consistent with stroke carotid dopplers showing a left carotid occlusion and right vertebral artery occlusion Neurology recommendations noted JENN results noted CTA of head + neck results reviewed (6) 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 Subjective Date/time seen: 08/24/22 12:17 Tolerating peritoenal dialysis treatment overnight although ultrafiltration/fluid removal was limited (but he has done this before); remains on intubated and on mechanical ventilation; stable hemodynamics and afebrile; no new issues/events overnight or earlier this morning. Exam Narrative: General: WD/WN male intubated/sedated and on ventilator Heart: normal S1 and S2; no rub Lungs: coarse breath sounds Abdomen: soft, nontender, nondistended, positive bowel sounds Extremities: no cyanosis or clubbing; no edema Skin: warm and intact Objective Data Vital Signs Vital Signs: Vital Signs Temp Pulse Resp BP Pulse Ox O2 Del Method FiO2 08/24/22 12:00 Mechanical Ventilation 30 08/24/22 12:00 37.4 C 107 H 23 H 121/70 98 08/24/22 12:10 107 H 97 Mechanical Ventilation 30 08/24/22 10:56 111 H 97 Mechanical Ventilation 30 08/24/22 10:00 114 H 08/24/22 10:00 37.4 C 109 H 22 H 151/85 H 97 08/24/22 08:00 103 H 08/24/22 08:00 Mechanical Ventilation 30 08/24/22 08:00 30 08/24/22 08:00 37.2 C 107 H 26 H 169/87 H 97 08/24/22 08:33 104 H 17 08/24/22 08:30 104 H 97 Mechanical Ventilation 30 08/24/22 08:27 102 H 17 08/24/22 08:02 37.3 C 92 28 H 131/73 08/24/22 06:00 92 08/24/22 06:00 92 28 H 131/73 96 08/24/22 04:00 37.3 C 86 22 H 118/74 98 08/24/22 04:00 30 08/24/22 04:00 Mechanical Ventilation 30 08/24/22 04:00 82 08/24/22 04:32 82 98 Mechanical Ventilation 30 08/24/22 02:00 82 08/24/22 02:00 82 22 H 113/78 98 08/24/22 02:04 88 22 H 08/24/22 01:56 88 21 H 08/24/22 01:46 88 97 Mechanical Ventilation 30 08/24/22 00:00 37.8 C H 90 25 H 103/73 98 08/23/22 22:00 38.2 C H 101 H 34 H 124/74 96 08/24/22 00:00 88 08/24/22 00:00 30 08/24/22 00:00 Mechanical Ventilation 30 08/23/22
--- NOTE | 2022-08-24 12:17 | P.PNNP_ITS ---
Progress Note: A&P Assessment and Plan (1) End stage renal disease: Code(s): N18.6 - End stage renal disease Status: Chronic Assessment and Plan: * continue nightly peritoneal dialysis * follow electrolytes, volume status and clearance * adjust PD Rx to maintain I/Os (2) Peritonitis: Code(s): K65.9 - Peritonitis, unspecified Status: Acute Assessment and Plan: * as evidenced by symptoms and PD fluid cell count on admission * PD fluid culture results noted * repeat PD fluid cell count improving (3) Sepsis: Code(s): A41.9 - Sepsis, unspecified organism Status: Acute Assessment and Plan: * as noted with leukocytosis, fever, hypotension, acute respiratory failure, and peritonitis * follow culture data * off vasopressor support at this time * on IV antibiotics/antifungals * continues to have on/off fevers with ongoing leukocytosis * repeat PD fluid cell count noted (4) Acute respiratory failure: Code(s): J96.00 - Acute respiratory failure, unspecified whether with hypoxia or hypercapnia Status: Acute Assessment and Plan: * intubated (08/16/22) due to respiratory distress, altered mental status and inability to protect his airway * further complicated by COPD and ongoing smoking * continue ventilator support * continue bronchodilators (5) Ischemic stroke: Code(s): I63.9 - Cerebral infarction, unspecified Status: Acute Assessment and Plan: * imaging to date consistent with stroke * 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 Subjective Date/time seen: 08/24/22 12:17 Tolerating peritoenal dialysis treatment overnight although ultrafiltrati on/fluid removal was limited (but he has done this before); remains on intubated and on mechanical ventilation; stable hemodynamics and afebrile; no new issues/events overnight or earlier this morning. Exam Narrative: General: WD/WN male intubated/sedated and on ventilator Heart: normal S1 and S2; no rub Lungs: coarse breath sounds Abdomen: soft, nontender, nondistended, positive bowel sounds Extremities: no cyanosis or clubbing; no edema Skin: warm and intact Objective Data Vital Signs Vital Signs: Vital Signs Temp Pulse Resp BP Pulse Ox O2 Del Method FiO2 08/24/22 12:00 Mechanical Ventilation 30 08/24/22 12:00 37.4 C 107 H 23 H 121/70 98 08/24/22 12:10 107 H 97 Mechanical Ventilation 30 08/24/22 10:56 111 H 97 Mechanical Ventilation 30 08/24/22 10:00 114 H 08/24/22 10:00 37.4 C 109 H 22 H 151/85 H 97 08/24/22 08:00 103 H 08/24/22 08:00 Mechanical Ventilation 30 08/24/22 08:00 30 08/24/22 08:00 37.2 C 107 H 26 H 169/87 H 97 08/24/22 08:33 104 H 17 08/24/22 08:30 104 H 97 Mechanical Ventilation 30 08/24/22 08:27 102 H 17 08/24/22 08:02 37.3 C 92 28 H 131/73
[2022-08-24] MEDS: METOCLOPRAMIDE HCL INJ 10 MG/2 ML VIAL IV PUSH ×2 (12:56→18:23)
[2022-08-24 18:11] LABS: Glucose Point of Care 161 mg/dl (65-105)
[2022-08-25] VITALS (29 sets, daily range): BP systolic 90–151; BP diastolic 61–84; PULSE 93–112; RESP 24–37; TEMP 37.4–38.6; O2SAT 95–100
[2022-08-25 00:18] LABS: Glucose Point of Care 134 mg/dl (65-105)
[2022-08-25] MEDS: dexmedeTOMIDine 400 MCG/100 ML 400 MCG/100 ML BAG IV CONT ×2 (00:44→20:39)
[2022-08-25] MEDS: LEVALBUTEROL NEB 1.25 MG/3 ML 0.63 MG INHALATION ×4 (02:44→20:20)
[2022-08-25] MEDS: IPRATROPIUM BR 0.02% INH SOLN 0.5 MG/2.5 ML VIAL INHALATION ×4 (02:45→20:20)
[2022-08-25 04:32] LABS: Hematocrit 29.4 % (42.0-52.0); Hemoglobin 9.6 g/dL (14.0-18.0); Mean Corpuscular HGB Conc 32.7 g/dl (32-36); Mean Corpuscular Hemoglobin 30.8 pg (26-34); Mean Corpuscular Volume 94.2 fl (80-100); Mean Platelet Volume 10.2 fl (7.4-10.4); Platelet Count Result 440 k/mm3 (150-375); Red Blood Count 3.12 M/mm3 (4.6-6.20); Red Cell Distribution Width 14.5 % (11.5-14.5); White Blood Count 49.5 K/mm3 (4.5-10.0)
[2022-08-25 04:53] LABS: Alanine Aminotransferase 457 U/L (6-50); Alkaline Phosphatase 621 U/L (38-126); Anion Gap 19 mmol/L (8-16); Aspartate Amino Transferase 387 U/L (17-59); Bilirubin,Total 0.4 mg/dL (0.2-1.3); Blood Urea Nitrogen 85 mg/dL (9-20); Calcium 8.6 mg/dL (8.4-10.2); Carbon Dioxide 26 mmol/L (22-30); Chloride 90 mmol/L (98-107); Estimated CRCL calculation 8 ml/min; Estimated Glomerular Filt Rate 7; Glucose 125 mg/dL (65-110); Magnesium 2.1 mg/dL (1.6-2.3); Phosphorus 6.6 mg/dL (2.5-4.5); Potassium 3.6 mmol/L (3.4-5.0); Sodium 135 mmol/L (137-145)
[2022-08-25 05:02] LABS: Vancomycin Random 20.9 ug/mL (10-20)
[2022-08-25] MEDS: CENTRAL LINE FLUSH 10 ML IV PUSH ×3 (05:32→21:01)
[2022-08-25] MEDS: HEPARIN SODIUM 5,000 UNITS/ML VIAL 5000 UNITS SUB-Q ×3 (05:32→21:00)
[2022-08-25 05:52] LABS: Alveolar/Arterial O2 Gradient 81.8 mmHg; Base Excess ABG 2.6 mEq/l (+/-2.0); Carboxyhemoglobin 0.3 % THb (0-2.0); Fractional Inspired Oxygen 30 %; HCO3 ABG 26.2 mEq/l (22.0-26.0); Methemoglobin ABG 0.2 %THb (0-1.5); Oxygen Content ABG 14.9 %vol (16.0-22.0); Oxygen Saturation ABG 97.3 % (95.0-100.0); Oxyhemoglobin 95.7 % THb (90.0-100.0); PCO2 ABG 36.8 mmHg (35.0-45.0); PO2 ABG 88.9 mmHg (80.0-100.0); PO2 FiO2 Ratio Arterial Blood 2.96 %; Reduced Hemoglobin 3.8 %THb (0-5.0); pH ABG 7.471 (7.350-7.450)
[2022-08-25 05:53] LABS: Device VENTILATOR; Modified Allen's Test Pass; Site Drawn RIGHT RADIAL
[2022-08-25 05:55] LABS: Arterial Blood Gas Vent Mode CMV; Arterial Blood Gas Ventilator rate 15 /MIN
[2022-08-25 05:56] LABS: Arterial Blood Gas PEEP 5 cmH2O; Arterial Blood Gas Tidal Volume 330 ml
[2022-08-25] MEDS: POTASSIUM CHLORIDE 20 MEQ PACKET (FOR LIQUID) 40 MEQ FEED TUBE (07:55)
[2022-08-25] MEDS: MICAFUNGIN SODIUM 100 MG in SODIUM CHLORIDE 0.9% IV 100 ML IVPB (07:56)
[2022-08-25] MEDS: PANTOPRAZOLE SODIUM IV 40 MG VIAL IV PUSH (07:59)
[2022-08-25] MEDS: ZINC SULFATE 220 MG CAPSULE PO (08:01)
[2022-08-25] MEDS: CLOPIDOGREL BISULFATE 75 MG TABLET PO (08:02)
[2022-08-25] MEDS: CYANOCOBALAMIN 500 MCG TABLET PO (08:02)
[2022-08-25] MEDS: CHOLECALCIFEROL 1,000 UNITS TABLET 5000 UNITS PO (08:02)
[2022-08-25] MEDS: ASPIRIN 81 MG CHEWABLE TABLET PO (08:02)
[2022-08-25] MEDS: ASCORBIC ACID 250 MG TABLET PO (08:02)
[2022-08-25] MEDS: MINERAL OIL/WHITE PETROLATUM OINTMENT 1 APPLIC EACH EYE ×2 (08:02→20:41)
[2022-08-25] MEDS: EPOETIN ALFA-EPBX 10,000 UNITS/ML VIAL 10000 UNITS SUB-Q (08:05)
[2022-08-25 09:58] LABS: Toxigenic C. Diff NEGATIVE (NEGATIVE)
--- NOTE | 2022-08-25 10:59 | WPDINTPN ---
Progress Note: A&P Assessment and Plan (1) Acute respiratory failure: Code(s): J96.00 - Acute respiratory failure, unspecified whether with hypoxia or hypercapnia Status: Acute Assessment and Plan: Acute respiratory failure, patient was intubated on 08/16/2022 in early hours -patient was found to be in respiratory distress, altered mental status, unable to protect his airway -respiratory failure likely related to mental status issues and or infectious cause/severe sepsis -patient currently on CMV mode of ventilation, peep of 5, 30% FiO2, -ABGs reviewed -continue rate to 15 and decreased tidal volume to 300 -he has been tolerating pressure support 12/5 for few hours. Does get tachypneic and tachycardic but not in any respiratory distress.. He needs pressure support of 12/5 for to obtain Adequate RSBI. Continue as tolerated -weaning will depend on respiratory improvement and improvement in is neurological status which has not happened significantly over last few days -chest CT reviewed -mild emphysema. Prominent left lower lobe basilar atelectasis and/or infiltrate; minimal dependent right lower lobe atelectasis -chest x-ray reviewed -continue Xopenex and Atrovent -patient is sedated with Precedex which is currently off at this time for sedation holiday (2) Severe sepsis: Code(s): A41.9 - Sepsis, unspecified organism; R65.20 - Severe sepsis without septic shock Status: Acute Assessment and Plan: Patient with severe sepsis, leukocytosis, lactic acidosis, hypotension, acute respiratory failure, peritonitis -patient was initially started on intraperitoneal ceftazidime and IV vancomycin (08/14) - 08/20-empiric micafungin was added after discussion with Nephrology due to persistent elevated WBC and fevers - 08/21-change cefepime to Zosyn Patient does have thick secretions coming out but CT chest did not show any significant pneumonia CT chest abdomen pelvis was done IMPRESSION: 1. Dilated small bowel without transition point, likely adynamic ileus. 2. Mild emphysema. 3. Endotracheal tube tip 6 mm above the shayy. 4. 15 mm cystic lesion in the pancreas. The differential diagnosis includes pseudocyst, intraductal papillary mucinous neoplasm (IPMN), mucinous cystic neoplasm (MCN), serous cystadenoma, and neuroendocrine tumor. Abdomen MRI without and with contrast is recommended in one year. 5. Small volume of ascites with peritoneal dialysis catheter Right upper quadrant ultrasound was unremarkable 08/23 peritoneal fluid was resend for for Gram stain culture and cell counts. Cell count appears to be improved although Gram stain and culture pending 08/24 CT chest abdomen pelvis IMPRESSION:? Prominent left lower lobe basilar atelectasis and/or infiltrate; minimal dependent right lower lobe atelectasis Mild emphysema Extensive atherosclerosis Peritoneal dialysis catheter, minimal ascites Minimal diverticulosis of the colon; no evidence of diverticulitis Fluid levels in the colon which are abnormal unless the patient has been recent enemas. Consider colitis, adynamic ileus 08/24 CT sinuses IMPRESSION:? Leftward bowing of nasal septum Cassie bullosa of right middle nasal turbinate Mucous retention cyst or polyp in the inferomedial aspect of each maxillary sinus Mild mucoperiosteal thickening of the maxillary sinuses, right sphenoid sinus and to lesser extent frontal sinuses Patent ostiomeatal units and mastoid air cells 08/24 Levaquin added to cover for stenotrophomonas in sputum He continues to have fever and further increase in WBC Continue vancomycin, Levaquin Zosyn and micafungin. Add Levaquin 08/24 to cover for stenotrophomonas Place another peripheral IV and remove central venous catheter Check C diff (3) Peritonitis: Code(s): K65.9 - Peritonitis, unspecified Status: Acute Assessment and Plan: Patient presented to the ED on 08/14/2022 with complains of diffuse abdominal pain x1 week. Parac
[2022-08-25] MEDS: METOCLOPRAMIDE HCL INJ 10 MG/2 ML VIAL IV PUSH ×2 (11:59→18:01)
[2022-08-25 12:03] LABS: Glucose Point of Care 131 mg/dl (65-105)
--- NOTE | 2022-08-25 12:04 | PCNFU ---
Nutrition Follow-Up Complete: Increased protein energy needs related to mechanical ventilation, pressure injury, sepsis as evidenced by need for full tube feeding. Goal: Tolerate tube feeding at goal rate - meeting goal New goal -Prevent further skin breakdown Pt current nutrition is Nepro @ 50 ml/h. Nutrition recommendation: Add Soren flushes 2x day. Must be mixed with 120 ml H2O. Last recorded weight is 65.2 kg. Bowel Motility: +2 BM 08/25/22 Labs Reviewed: Hgb 9.6, Hct 29.4, Alb 3.0, N 135, bun 85, cREAT 7.9, po4 6.6 Meds Noted: rEGLAN, PROTONIX, Precedex Skin: New Deep tissue injury to coccyx, buttocks Additional Notes: New pressure injuries noted. Ordering Soren. Comfort care being discussed with family. Monitoring labs, weights, tube feeding tolerance, plan of care, meds. Follow up Thursday and Thursday per policy.
--- NOTE | 2022-08-25 13:25 | P.PNNP_ITS ---
Progress Note: A&P Assessment and Plan (1) End stage renal disease: Code(s): N18.6 - End stage renal disease Status: Chronic Assessment and Plan: * continue nightly peritoneal dialysis * follow electrolytes, volume status and clearance * adjust PD Rx to maintain I/Os (2) Peritonitis: Code(s): K65.9 - Peritonitis, unspecified Status: Acute Assessment and Plan: * as evidenced by symptoms and PD fluid cell count on admission * PD fluid culture results noted * repeat PD fluid cell count improving (3) Sepsis: Code(s): A41.9 - Sepsis, unspecified organism Status: Acute Assessment and Plan: * as noted with leukocytosis, fever, hypotension, acute respiratory failure, and peritonitis * follow culture data * off vasopressor support at this time * on IV antibiotics/antifungals * continues to have on/off fevers with ongoing leukocytosis * repeat PD fluid cell count noted (4) Acute respiratory failure: Code(s): J96.00 - Acute respiratory failure, unspecified whether with hypoxia or hypercapnia Status: Acute Assessment and Plan: * intubated (08/16/22) due to respiratory distress, altered mental status and inability to protect his airway * further complicated by COPD and ongoing smoking * continue ventilator support * continue bronchodilators (5) Ischemic stroke: Code(s): I63.9 - Cerebral infarction, unspecified Status: Acute Assessment and Plan: * imaging to date consistent with stroke * 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 Subjective Date/time seen: 08/25/22 13:25 Tolerated peritoneal dialysis treatment yesterday evening; otherwise, no significant change noted -- febrile in the last 24 hours and remains intubated/sedated with ongoing mechanical ventilatory support; remains hemodynamically stable; no other issues overnight. Exam Narrative: General: WD/WN male intubated/sedated and on ventilator Heart: normal S1 and S2; no rub Lungs: coarse breath sounds Abdomen: soft, nontender, nondistended, positive bowel sounds Extremities: no cyanosis or clubbing; no edema Skin: warm and intact Objective Data Vital Signs Vital Signs: Vital Signs Temp Pulse Resp BP Pulse Ox O2 Del Method FiO2 08/25/22 12:00 37.9 C H 103 H 25 H 133/75 97 08/25/22 12:00 103 H 08/25/22 12:00 30 08/25/22 08:35 96 24 H 08/25/22 10:36 105 H 97 Mechanical Ventilation 30 08/25/22 08:20 93 24 H 08/25/22 08:20 93 97 Mechanical Ventilation 30 08/25/22 10:00 37.8 C H 102 H 31 H 151/82 H 96 08/25/22 10:00 102 H 08/25/22 08:00 38.1 C H 98 27 H 133/79 97 08/25/22 08:00 98 08/25/22 08:00 Mechanical Ventilation 30 08/25/22 08:00 30 08/25/22 06:01 38.2 C H 100 24 H 111/73 97 08/25/22 06:00 100 08/25/22 05:29 104 H 100
--- NOTE | 2022-08-25 13:25 | PM.PNNEP ---
Progress Note: A&P Assessment and Plan (1) End stage renal disease: Code(s): N18.6 - End stage renal disease Status: Chronic Assessment and Plan: continue nightly peritoneal dialysis follow electrolytes, volume status and clearance adjust PD Rx to maintain I/Os (2) Peritonitis: Code(s): K65.9 - Peritonitis, unspecified Status: Acute Assessment and Plan: as evidenced by symptoms and PD fluid cell count on admission PD fluid culture results noted repeat PD fluid cell count improving (3) Sepsis: Code(s): A41.9 - Sepsis, unspecified organism Status: Acute Assessment and Plan: as noted with leukocytosis, fever, hypotension, acute respiratory failure, and peritonitis follow culture data off vasopressor support at this time on IV antibiotics/antifungals continues to have on/off fevers with ongoing leukocytosis repeat PD fluid cell count noted (4) Acute respiratory failure: Code(s): J96.00 - Acute respiratory failure, unspecified whether with hypoxia or hypercapnia Status: Acute Assessment and Plan: intubated (08/16/22) due to respiratory distress, altered mental status and inability to protect his airway further complicated by COPD and ongoing smoking continue ventilator support continue bronchodilators (5) Ischemic stroke: Code(s): I63.9 - Cerebral infarction, unspecified Status: Acute Assessment and Plan: imaging to date consistent with stroke carotid dopplers showing a left carotid occlusion and right vertebral artery occlusion Neurology recommendations noted JENN results noted CTA of head + neck results reviewed (6) 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 Subjective Date/time seen: 08/25/22 13:25 Tolerated peritoneal dialysis treatment yesterday evening; otherwise, no significant change noted -- febrile in the last 24 hours and remains intubated/sedated with ongoing mechanical ventilatory support; remains hemodynamically stable; no other issues overnight. Exam Narrative: General: WD/WN male intubated/sedated and on ventilator Heart: normal S1 and S2; no rub Lungs: coarse breath sounds Abdomen: soft, nontender, nondistended, positive bowel sounds Extremities: no cyanosis or clubbing; no edema Skin: warm and intact Objective Data Vital Signs Vital Signs: Vital Signs Temp Pulse Resp BP Pulse Ox O2 Del Method FiO2 08/25/22 12:00 37.9 C H 103 H 25 H 133/75 97 08/25/22 12:00 103 H 08/25/22 12:00 30 08/25/22 08:35 96 24 H 08/25/22 10:36 105 H 97 Mechanical Ventilation 30 08/25/22 08:20 93 24 H 08/25/22 08:20 93 97 Mechanical Ventilation 30 08/25/22 10:00 37.8 C H 102 H 31 H 151/82 H 96 08/25/22 10:00 102 H 08/25/22 08:00 38.1 C H 98 27 H 133/79 97 08/25/22 08:00 98 08/25/22 08:00 Mechanical Ventilation 30 08/25/22 08:00 30 08/25/22 06:01 38.2 C H 100 24 H 111/73 97 08/25/22 06:00 100 08/25/22 05:29 104 H 100 Mechanical Ventilation 30 08/25/22 05:01 38.6 C H 104 H 29 H 118/74 97 08/25/22 04:01 38.6 C H 99 27 H 90/61 L 97 08/25/22 04:00 104 H 08/25/22 04:00 30 08/25/22 04:00 Mechanical Ventilation 30 08/25/22 03:20 101 H 25 H 08/25/22 02:45 106 H 27 H 08/25/22 02:45 106 H 100 Mechanical Ventilation 30 08/25/22 02:01 38.0 C H 108 H 27 H 121/75 96 08/25/22 02:00 108 H 08/25/22 00:05 37.8 C H 111 H 37 H 97/77 L 98 08/25/22 00:00 112 H 08/25/22 00:00 30 08/25/22 00:00 Mechanical Ventilation 30 08/24/22 22:00 38.0 C H 107 H 31 H 117/70 97 08/24/22 22:00 107
[2022-08-25 17:46] LABS: Glucose Point of Care 144 mg/dl (65-105)
[2022-08-26] VITALS (23 sets, daily range): BP systolic 109–158; BP diastolic 68–89; PULSE 98–110; RESP 16–35; TEMP 37.5–37.9; O2SAT 93–100
[2022-08-26 00:23] LABS: Glucose Point of Care 154 mg/dl (65-105)
[2022-08-26] MEDS: LEVALBUTEROL NEB 1.25 MG/3 ML 0.63 MG INHALATION ×2 (02:01→08:04)
[2022-08-26] MEDS: IPRATROPIUM BR 0.02% INH SOLN 0.5 MG/2.5 ML VIAL INHALATION ×2 (02:01→08:04)
[2022-08-26 04:34] LABS: Hematocrit 28.4 % (42.0-52.0); Hemoglobin 9.3 g/dL (14.0-18.0); Mean Corpuscular HGB Conc 32.7 g/dl (32-36); Mean Corpuscular Hemoglobin 31.3 pg (26-34); Mean Corpuscular Volume 95.6 fl (80-100); Mean Platelet Volume 10.4 fl (7.4-10.4); Platelet Count Result 429 k/mm3 (150-375); Red Blood Count 2.97 M/mm3 (4.6-6.20); Red Cell Distribution Width 14.6 % (11.5-14.5); White Blood Count 47.6 K/mm3 (4.5-10.0)
[2022-08-26 04:48] LABS: Alanine Aminotransferase 446 U/L (6-50); Alkaline Phosphatase 706 U/L (38-126); Anion Gap 18 mmol/L (8-16); Aspartate Amino Transferase 288 U/L (17-59); Bilirubin,Total 0.4 mg/dL (0.2-1.3); Blood Urea Nitrogen 97 mg/dL (9-20); Calcium 8.8 mg/dL (8.4-10.2); Carbon Dioxide 24 mmol/L (22-30); Chloride 93 mmol/L (98-107); Estimated CRCL calculation 7 ml/min; Estimated Glomerular Filt Rate 7; Glucose 138 mg/dL (65-110); Magnesium 2.2 mg/dL (1.6-2.3); Phosphorus 6.3 mg/dL (2.5-4.5); Potassium 3.8 mmol/L (3.4-5.0); Sodium 135 mmol/L (137-145)
[2022-08-26 05:37] LABS: Alveolar/Arterial O2 Gradient 87.3 mmHg; Base Excess ABG 1.5 mEq/l (+/-2.0); Carboxyhemoglobin 0.3 % THb (0-2.0); Fractional Inspired Oxygen 30 %; HCO3 ABG 25.6 mEq/l (22.0-26.0); Methemoglobin ABG 0.2 %THb (0-1.5); Oxygen Content ABG 15.9 %vol (16.0-22.0); Oxygen Saturation ABG 96.4 % (95.0-100.0); Oxyhemoglobin 94.6 % THb (90.0-100.0); PCO2 ABG 38.5 mmHg (35.0-45.0); PO2 ABG 81.4 mmHg (80.0-100.0); PO2 FiO2 Ratio Arterial Blood 2.71 %; Reduced Hemoglobin 4.9 %THb (0-5.0); Total Hemoglobin 11.9 g/dL (12.0-18.0)
[2022-08-26 05:39] LABS: Arterial Blood Gas PEEP 5 cmH2O; Arterial Blood Gas Vent Mode CMV; Arterial Blood Gas Ventilator rate 15 /MIN; Device VENTILATOR; Modified Allen's Test Pass; Site Drawn RIGHT RADIAL
[2022-08-26 05:40] LABS: Arterial Blood Gas Tidal Volume 300 ml
[2022-08-26] MEDS: HEPARIN SODIUM 5,000 UNITS/ML VIAL 5000 UNITS SUB-Q ×2 (05:48→14:03)
[2022-08-26] MEDS: CENTRAL LINE FLUSH 10 ML IV PUSH ×3 (05:49→20:02)
[2022-08-26] MEDS: ASPIRIN 81 MG CHEWABLE TABLET PO (08:51)
[2022-08-26] MEDS: MINERAL OIL/WHITE PETROLATUM OINTMENT 1 APPLIC EACH EYE (08:51)
[2022-08-26] MEDS: PANTOPRAZOLE SODIUM IV 40 MG VIAL IV PUSH (08:51)
[2022-08-26] MEDS: CLOPIDOGREL BISULFATE 75 MG TABLET PO (08:51)
[2022-08-26] MEDS: CHOLECALCIFEROL 1,000 UNITS TABLET 5000 UNITS PO (08:51)
[2022-08-26] MEDS: CYANOCOBALAMIN 500 MCG TABLET PO (08:51)
[2022-08-26] MEDS: ZINC SULFATE 220 MG CAPSULE PO (08:51)
[2022-08-26] MEDS: ASCORBIC ACID 250 MG TABLET PO (08:51)
[2022-08-26] MEDS: SODIUM CHLORIDE 0.9% IV 500 ML (08:52)
[2022-08-26] MEDS: levoFLOXacin 500 MG/D5W 100 ML 500 MG/100 ML BAG 66.67 MG IVPB (08:57)
[2022-08-26] MEDS: MICAFUNGIN SODIUM 100 MG in SODIUM CHLORIDE 0.9% IV 100 ML IVPB (09:00)
--- NOTE | 2022-08-26 09:06 | PM.IMPN ---
Progress Note: A&P Assessment and Plan (1) Acute respiratory failure: Code(s): J96.00 - Acute respiratory failure, unspecified whether with hypoxia or hypercapnia Status: Acute Assessment and Plan: intubated, sedated, appreciate critical care consultation and management (2) Peritonitis: Code(s): K65.9 - Peritonitis, unspecified Status: Acute Assessment and Plan: Continue IV antibiotics and IV antifungal Levaquin, zosyn, micafungin, vancomycin Persistent fever, peritoneal fluid resent (3) Severe sepsis: Code(s): A41.9 - Sepsis, unspecified organism; R65.20 - Severe sepsis without septic shock Status: Acute Assessment and Plan: As above, appreciate critical care consultation Transaminitis noted, thought to be secondary to hypoperfusion from sepsis, continue supportive care, monitor Urine culture came back negative, blood cultures x2 are both negative growth to date, taken on 08/16/2022 (4) Ischemic stroke: Code(s): I63.9 - Cerebral infarction, unspecified Status: Acute Assessment and Plan: Patient with ischemic stroke and L. ICA occlusion/thrombus Neurology consult recommending aspirin, Plavix, statin, CTA head and neck, JENN as well as possibly a loop recorder 08/20: JENN was essentially unremarkable (5) COPD (chronic obstructive pulmonary disease): Qualifiers: COPD type: unspecified COPD Qualified Code(s): J44.9 - Chronic obstructive pulmonary disease, unspecified Code(s): J44.9 - Chronic obstructive pulmonary disease, unspecified Status: Chronic Assessment and Plan: Continue bronchodilators, mechanical ventilation (6) End stage renal disease: Code(s): N18.6 - End stage renal disease Status: Chronic Assessment and Plan: ESRD on PD, appreciate nephrology consultation (7) Ileus: Code(s): K56.7 - Ileus, unspecified Status: Acute Assessment and Plan: adynamic ileus suspected (8) Septic shock: Code(s): A41.9 - Sepsis, unspecified organism; R65.21 - Severe sepsis with septic shock Status: Acute Assessment and Plan: appreciate critical care consultation (9) Hypertension: Qualifiers: Hypertension type: unspecified Qualified Code(s): I10 - Essential (primary) hypertension Code(s): I10 - Essential (primary) hypertension Status: Chronic Assessment and Plan: stable Plan Family has decided to withdraw support today. DVT prophylaxis with heparin GI prophylaxis with PPI Code status DNR Subjective Date/time seen: 08/26/22 09:06 Interval history: Intubated/sedated. Family has decided withdrawal support today. Review of Systems Review of Systems: ROS unobtainable: Yes unobtainable due to endotracheal tube Exam Narrative: General: Intubated, sedated HEENT: Atraumatic, normocephalic CV: Regular rate and rhythm, S1, S2 Lungs: Unlabored breathing noted, no audible wheeze Abdomen: Soft, nondistended Psych: Unable to assess Objective Data Vital Signs Vital Signs: Vital Signs - 24 hr 08/25/22 10:00 08/25/22 10:00 08/25/22 10:36 Temperature 100.0 F H Pulse Rate 102 H 102 H 105 H Respiratory Rate 31 H Blood Pressure 151/82 H Pulse Oximetry 96 97 Oxygen Delivery Mechanical Ventilation Fraction of Inspired Oxygen 30 08/25/22 12:00 08/25/22 12:00 08/25/22 12:00 Temperature 100.2 F H Pulse Rate 103 H 103 H Respiratory Rate 25 H Blood Pressure 133/75 Pulse Oximetry 97 Oxygen Delivery Fraction of Inspired Oxygen 30 08/25/22 12:00 08/25/22 14:00 08/25/22 14:00 Temperature 100.2 F H Pulse Rate 96 96 Respiratory Rate 32 H Blood Pressure 123/72 Pulse Oximetry 97 Oxygen Delivery Mechanical Ventilation Fraction of Inspired Oxygen 30 08/25/22 14:02 08/25/22 14:02 08/25/22 14:17 Temperature Pulse Rate 99 99 97 Respiratory Rate 32 H 31 H Blood
--- NOTE | 2022-08-26 10:38 | P.PNNP_ITS ---
Progress Note: A&P Assessment and Plan (1) End stage renal disease: Code(s): N18.6 - End stage renal disease Status: Chronic Assessment and Plan: * continue nightly peritoneal dialysis * follow electrolytes, volume status and clearance * adjust PD Rx to maintain I/Os (2) Peritonitis: Code(s): K65.9 - Peritonitis, unspecified Status: Acute Assessment and Plan: * as evidenced by symptoms and PD fluid cell count on admission * PD fluid culture results noted * repeat PD fluid cell count improving (3) Sepsis: Code(s): A41.9 - Sepsis, unspecified organism Status: Acute Assessment and Plan: * as noted with leukocytosis, fever, hypotension, acute respiratory failure, and peritonitis * follow culture data * off vasopressor support at this time * on IV antibiotics/antifungals * continues to have on/off fevers with ongoing leukocytosis * repeat PD fluid cell count noted (4) Acute respiratory failure: Code(s): J96.00 - Acute respiratory failure, unspecified whether with hypoxia or hypercapnia Status: Acute Assessment and Plan: * intubated (08/16/22) due to respiratory distress, altered mental status and inability to protect his airway * further complicated by COPD and ongoing smoking * continue ventilator support * continue bronchodilators (5) Ischemic stroke: Code(s): I63.9 - Cerebral infarction, unspecified Status: Acute Assessment and Plan: * imaging to date consistent with stroke * 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 Subjective Date/time seen: 08/26/22 10:38 Tolerated peritoneal dialysis treatment overnight but ultrafiltration/fluid removal limited; remain intubated/sedated and on mechanical ventilation; stable hemodynamics at this time; low grade temperaturs in the last 24 hours; otherwise, no significant change noted. Exam Narrative: General: WD/WN male intubated/sedated and on ventilator Heart: normal S1 and S2; no rub Lungs: coarse breath sounds Abdomen: soft, nontender, nondistended, positive bowel sounds Extremities: no cyanosis or clubbing; no edema Skin: no rash Objective Data Vital Signs Vital Signs: Vital Signs Temp Pulse Resp BP Pulse Ox O2 Del Method FiO2 08/26/22 08:00 30 08/26/22 08:00 Mechanical Ventilation 30 08/26/22 08:00 101 H 08/26/22 08:00 37.6 C 101 H 25 H 158/88 H 100 08/26/22 08:19 106 H 35 H 08/26/22 08:05 103 H 33 H 08/26/22 08:00 103 H 97 Mechanical Ventilation 30 08/26/22 06:00 37.6 C 102 H 29 H 152/86 H 96 08/26/22 06:00 104 H 08/26/22 05:03 103 H 98 Mechanical Ventilation 30 08/26/22 04:00 37.9 C H 102 H 30 H 109/70 98 08/26/22 04:00 30 08/26/22 03:59 99 Mechanical Ventilation 30 08/26/22 03:55 104 H 08/26/22 02:00 37.8 C H 106 H 34 H 111/70 98
--- NOTE | 2022-08-26 10:38 | PM.PNNEP ---
Progress Note: A&P Assessment and Plan (1) End stage renal disease: Code(s): N18.6 - End stage renal disease Status: Chronic Assessment and Plan: continue nightly peritoneal dialysis follow electrolytes, volume status and clearance adjust PD Rx to maintain I/Os (2) Peritonitis: Code(s): K65.9 - Peritonitis, unspecified Status: Acute Assessment and Plan: as evidenced by symptoms and PD fluid cell count on admission PD fluid culture results noted repeat PD fluid cell count improving (3) Sepsis: Code(s): A41.9 - Sepsis, unspecified organism Status: Acute Assessment and Plan: as noted with leukocytosis, fever, hypotension, acute respiratory failure, and peritonitis follow culture data off vasopressor support at this time on IV antibiotics/antifungals continues to have on/off fevers with ongoing leukocytosis repeat PD fluid cell count noted (4) Acute respiratory failure: Code(s): J96.00 - Acute respiratory failure, unspecified whether with hypoxia or hypercapnia Status: Acute Assessment and Plan: intubated (08/16/22) due to respiratory distress, altered mental status and inability to protect his airway further complicated by COPD and ongoing smoking continue ventilator support continue bronchodilators (5) Ischemic stroke: Code(s): I63.9 - Cerebral infarction, unspecified Status: Acute Assessment and Plan: imaging to date consistent with stroke carotid dopplers showing a left carotid occlusion and right vertebral artery occlusion Neurology recommendations noted JENN results noted CTA of head + neck results reviewed (6) 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 Subjective Date/time seen: 08/26/22 10:38 Tolerated peritoneal dialysis treatment overnight but ultrafiltration/fluid removal limited; remain intubated/sedated and on mechanical ventilation; stable hemodynamics at this time; low grade temperaturs in the last 24 hours; otherwise, no significant change noted. Exam Narrative: General: WD/WN male intubated/sedated and on ventilator Heart: normal S1 and S2; no rub Lungs: coarse breath sounds Abdomen: soft, nontender, nondistended, positive bowel sounds Extremities: no cyanosis or clubbing; no edema Skin: no rash Objective Data Vital Signs Vital Signs: Vital Signs Temp Pulse Resp BP Pulse Ox O2 Del Method FiO2 08/26/22 08:00 30 08/26/22 08:00 Mechanical Ventilation 30 08/26/22 08:00 101 H 08/26/22 08:00 37.6 C 101 H 25 H 158/88 H 100 08/26/22 08:19 106 H 35 H 08/26/22 08:05 103 H 33 H 08/26/22 08:00 103 H 97 Mechanical Ventilation 30 08/26/22 06:00 37.6 C 102 H 29 H 152/86 H 96 08/26/22 06:00 104 H 08/26/22 05:03 103 H 98 Mechanical Ventilation 30 08/26/22 04:00 37.9 C H 102 H 30 H 109/70 98 08/26/22 04:00 30 08/26/22 03:59 99 Mechanical Ventilation 30 08/26/22 03:55 104 H 08/26/22 02:00 37.8 C H 106 H 34 H 111/70 98 08/26/22 02:00 106 H 08/26/22 02:07 106 H 98 Mechanical Ventilation 30 08/26/22 02:06 100 33 H 08/26/22 00:00 99 Mechanical Ventilation 30 08/26/22 00:00 30 08/26/22 00:00 37.7 C H 105 H 34 H 120/83 99 08/26/22 00:00 105 H 08/25/22 22:55 109 H 97 Mechanical Ventilation 30 08/25/22 22:00 104 H 08/25/22 22:00 37.7 C H 104 H 34 H 127/84 99 08/25/22 20:00 99 Mechanical Ventilation 30 08/25/22 20:00 97 08/25/22 20:00 30 08/25/22 20:00 37.6 C 96 31 H 141/71 H 97 08/25/22 20:24 101 H 97 Mechanical Ventilation 30 08/25/22 20:21 97 33 H 08/25/22
[2022-08-26] MEDS: METOCLOPRAMIDE HCL INJ 10 MG/2 ML VIAL IV PUSH ×2 (12:37→17:10)
[2022-08-26 12:43] LABS: Glucose Point of Care 137 mg/dl (65-105)
--- NOTE | 2022-08-26 13:19 | P.PNINT_ITS ---
Progress Note: A&P Assessment and Plan (1) Acute respiratory failure: Code(s): J96.00 - Acute respiratory failure, unspecified whether with hypoxia or hypercapnia Status: Acute Assessment and Plan: Acute respiratory failure, patient was intubated on 08/16/2022 in early hours -patient was found to be in respiratory distress, altered mental status, unable to protect his airway -respiratory failure likely related to mental status issues and or infectious cause/severe sepsis -patient currently on CMV mode of ventilation, peep of 5, 30% FiO2, -ABGs reviewed -continue rate to 15 and decreased tidal volume to 300 -he has been tolerating pressure support 12/5 for few hours. Does get tachypneic and tachycardic but not in any respiratory distress.. He needs pressure support of 12/5 for to obtain Adequate RSBI. Continue as tolerated -weaning will depend on respiratory improvement and improvement in is neurological status which has not happened significantly over last few days -chest CT reviewed -mild emphysema. Prominent left lower lobe basilar atelectasis and/or infiltrate; minimal dependent right lower lobe atelectasis -chest x-ray reviewed -continue Xopenex and Atrovent -patient is sedated with Precedex which is currently off at this time for sedation holiday -FAMILY HAS DECIDED TO WITHDRAW SUPPORT TODAY (2) Severe sepsis: Code(s): A41.9 - Sepsis, unspecified organism; R65.20 - Severe sepsis without septic shock Status: Acute Assessment and Plan: Patient with severe sepsis, leukocytosis, lactic acidosis, hypotension, acute respiratory failure, peritonitis -patient was initially started on intraperitoneal ceftazidime and IV vancomycin (08/14) - 08/20-empiric micafungin was added after discussion with Nephrology due to persistent elevated WBC and fevers - 08/21-change cefepime to Zosyn Patient does have thick secretions coming out but CT chest did not show any significant pneumonia CT chest abdomen pelvis was done IMPRESSION: 1. Dilated small bowel without transition point, likely adynamic ileus. 2. Mild emphysema. 3. Endotracheal tube tip 6 mm above the shayy. 4. 15 mm cystic lesion in the pancreas. The differential diagnosis includes pseudocyst, intraductal papillary mucinous neoplasm (IPMN), mucinous cystic neoplasm (MCN), serous cystadenoma, and neuroendocrine tumor. Abdomen MRI without and with contrast is recommended in one year. 5. Small volume of ascites with peritoneal dialysis catheter Right upper quadrant ultrasound was unremarkable 08/23 peritoneal fluid was resend for for Gram stain culture and cell counts. Cell count appears to be improved although Gram stain and culture pending 08/24 CT chest abdomen pelvis IMPRESSION:? Prominent left lower lobe basilar atelectasis and/or infiltrate; minimal dependent right lower lobe atelectasis Mild emphysema Extensive atherosclerosis Peritoneal dialysis catheter, minimal ascites Minimal diverticulosis of the colon; no evidence of diverticulitis Fluid levels in the colon which are abnormal unless the patient has been recent enemas. Consider colitis, adynamic ileus 08/24 CT sinuses IMPRESSION:? Leftward bowing of nasal septum Cassie bullosa of right middle nasal turbinate Mucous retention cyst or polyp in the inferomedial aspect of each maxillary sinus Mild mucoperiosteal thickening of the maxillary sinuses, right sphenoid sinus and to lesser extent frontal sinuses Patent ostiomeatal units and mastoid air cells 08/24 Levaquin added to cover for stenotrophomonas in sputum He continues to have fever and further increase in WBC Continue vancomycin, Levaquin Z
--- NOTE | 2022-08-26 14:39 | PCNFU ---
Nutrition Follow-Up Complete: Increased protein energy needs related to mechanical ventilation, sepsis as evidenced by need for full tube feeding goal: Tolerate tube feeding at goal rate Patient is meeting current goal. Pt current nutrition is Nepro at 50 ml/hr Last recorded weight is 61.2 kg Bowel Motility:FMS Labs Reviewed:Hgb 9.3,Hct 28.4,Alb 3.0,Na 135, BUN 97,Cr 8.2 Meds Noted:Reglan,Zosyn,Plavix, Zinc, Vit D, Vit C, B12, Protonix Skin: DT coccyx Additional Notes: Patient remains on mechanical vent and tube feedings of Nepro at 50 ml/hr. Discussions regarding comfort measures during rounds today with family and [employer]. Agree with tube feedings. Monitoring labs, weights, tube feeding tolerance, plan of care, meds. Follow up Thursday and Thursday per policy.
[2022-08-26] MEDS: dexmedeTOMIDine 400 MCG/100 ML 400 MCG/100 ML BAG IV CONT (17:08)
[2022-08-26] MEDS: LORazepam INJ (*CRX) 2 MG/ML VIAL IV PUSH ×2 (19:45→22:25)
[2022-08-26] MEDS: MORPHINE SULFATE (*CRX) 2 MG/ML INJ 5 MG IV PUSH (19:45)
[2022-08-26] MEDS: MORPHINE SULFATE (*CRX) 2 MG/ML INJ IV PUSH (22:25)
[2022-08-27 00:58] VITALS: BP 142/66; PULSE 109; RESP 32; TEMP 38.1; O2SAT 95
[2022-08-27 04:16] VITALS: BP 151/79; PULSE 109; RESP 38; TEMP 37.9; O2SAT 94
[2022-08-27] MEDS: MORPHINE SULFATE (*CRX) 2 MG/ML INJ IV PUSH ×10 (04:21→21:23)
[2022-08-27] MEDS: LORazepam INJ (*CRX) 2 MG/ML VIAL IV PUSH ×8 (04:21→21:24)
[2022-08-27] MEDS: CENTRAL LINE FLUSH 10 ML IV PUSH ×2 (04:22→15:26)
[2022-08-27 08:00] VITALS: BP 139/78; PULSE 112; RESP 40; TEMP 37.8; O2SAT 100
--- NOTE | 2022-08-27 08:52 | PM.PNNEP ---
Progress Note: A&P Assessment and Plan (1) End stage renal disease: Code(s): N18.6 - End stage renal disease Status: Chronic Assessment and Plan: no further peritoneal dialysis treatments at this time Will follow from a distance. Subjective Date/time seen: 08/27/22 08:52 Family apparently transitioned patient to comfort care measure yesterday evening. Patient does not appear in any distress -- receiving ativan and morphine to maintain comfort. Objective Data Vital Signs Vital Signs: Vital Signs Temp Pulse Resp BP Pulse Ox O2 Del Method FiO2 08/27/22 08:00 37.8 C H 112 H 40 H 139/78 100 08/27/22 08:00 112 H 40 H 100 Room Air 30 08/27/22 04:16 37.9 C H 109 H 38 H 151/79 H 94 08/27/22 00:58 38.1 C H 109 H 32 H 142/66 H 95 08/26/22 20:00 37.9 C H 110 H 32 H 158/71 H 93 08/26/22 20:00 Room Air 08/26/22 18:00 37.7 C H 106 H 16 150/86 H 98 08/26/22 18:00 106 H 08/26/22 16:40 99 98 Mechanical Ventilation 30 08/26/22 17:08 98 23 H 08/26/22 16:00 37.6 C 102 H 31 H 151/89 H 98 08/26/22 16:00 Mechanical Ventilation 30 08/26/22 16:00 101 H 08/26/22 16:00 30 08/26/22 14:13 100 98 Mechanical Ventilation 30 08/26/22 14:00 37.5 C 98 28 H 145/73 H 99 08/26/22 13:39 102 H 08/26/22 12:00 37.6 C H 105 H 27 H 157/86 H 99 08/26/22 12:00 30 08/26/22 12:00 Mechanical Ventilation 30 08/26/22 12:00 106 H 08/26/22 10:00 37.7 C H 102 H 30 H 151/68 H 99 08/26/22 10:00 102 H 08/26/22 10:58 102 H 99 Mechanical Ventilation 30 Intake/Output Intake/Output: Intake & Output 08/24/22 08/25/22 08/26/22 08/27/22 23:59 23:59 23:59 23:59 Intake Total 1820 1993 2118 Output Total 193 25 560 Balance 1635 1969 1559 Meds/Results Medications: Active Medications Generic Name Dose Route Start Last Admin Trade Name Freq PRN Reason Stop Dose Admin Lorazepam 2 mg 08/26/22 15:03 08/27/22 07:25 Lorazepam Inj (*Crx) 2 Mg/Ml Vial IV PUSH 2 mg Q2H PRN Administration Anxiety/Comfort Morphine Sulfate 2 mg 08/26/22 15:03 08/27/22 08:48 Morphine Sulfate (*Crx) 2 Mg/Ml Inj IV PUSH 2 mg Q30M PRN Administration COMFORT Sodium Chloride 10 ml 08/16/22 06:00 08/27/22 04:22 Central Line Flush IV PUSH 10 ml Q8HR JASON Administration Radiology Results: ITS Impressions Abdomen/Pelvis CT 08/14/22 11:59 IMPRESSION: 1. Small to moderate amount of ascites in the abdomen and pelvis likely related to peritoneal dialysis. 2. No acute intra-abdominal/pelvic process. 3. Moderate to severe left and mild right renal atrophy. Cervical Spine CT 08/14/22 19:10 IMPRESSION: Reversal of cervical curvature Severe degenerative disc disease and prominent uncovertebral joint spurring at C3-4 through C6-7 Brain MRI 08/15/22 14:39 IMPRESSION: 1. Scattered small acute infarcts involving the bilateral frontal and parietal lobes. 2. Mild nonspecific cerebral white matter disease, which likely represents chronic small vessel ischemic disease. 3. Loss of the normal flow void in the left internal carotid artery suggesting slow flow or thrombosis. Consider neck CTA. Soft Tissue Neck CT 08/15/22 16:28 IMPRESSION: 1. Extensive atherosclerotic calcifications including potentially hemodynamically significant calcific a cyst at the bilateral carotid bulbs. Unable to assess for thrombosis or patency of the vessels in the absence of intravascular contrast. Consider correlation either with carotid CT angiogram or carotid ultrasound. Carotid Doppler Study 08/15/22 17:35 IMPRESSION: 1. 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 2. <50% stenosis in the right internal carotid artery. 3. Approximately 60% stenosis on grayscale imaging at the more proximal right common carotid artery with b
[2022-08-27 09:43] VITALS: O2SAT 96
--- NOTE | 2022-08-27 10:46 | PM.IMPN ---
Progress Note: A&P Assessment and Plan (1) Comfort measures only status: Code(s): Z51.5 - Encounter for palliative care Status: Acute Assessment and Plan: Patient is on comfort measures only, family withdrew support on 08/26/2022 -currently receiving morphine and Ativan p.r.n. -patient seems to be comfortable -will move patient to 3rd floor medical room when available (2) Acute respiratory failure: Code(s): J96.00 - Acute respiratory failure, unspecified whether with hypoxia or hypercapnia Status: Acute Assessment and Plan: Comfort measures only (3) Severe sepsis: Code(s): A41.9 - Sepsis, unspecified organism; R65.20 - Severe sepsis without septic shock Status: Acute Assessment and Plan: Comfort measures only (4) Peritonitis: Code(s): K65.9 - Peritonitis, unspecified Status: Acute Assessment and Plan: Comfort measures only (5) Ischemic stroke: Code(s): I63.9 - Cerebral infarction, unspecified Status: Acute Assessment and Plan: Comfort measures only (6) COPD (chronic obstructive pulmonary disease): Qualifiers: COPD type: unspecified COPD Qualified Code(s): J44.9 - Chronic obstructive pulmonary disease, unspecified Code(s): J44.9 - Chronic obstructive pulmonary disease, unspecified Status: Chronic Assessment and Plan: Comfort measures only (7) End stage renal disease: Code(s): N18.6 - End stage renal disease Status: Chronic Assessment and Plan: Patient has been made comfort measures only Plan DVT prophylaxis: Heparin subQ Stress ulcer prophylaxis: Protonix Nutrition: Continue tube feeds and advance to goal Code Status: DNR, comfort measures 08/26/2022: Patient was made comfort measures withdrawal of support, Due to a high probability of clinically significant, life threatening deterioration, the patient required my highest level of preparedness to intervene emergently and I personally spent this critical care time directly and personally managing the patient. This critical care time included obtaining a history; examining the patient; pulse oximetry; ordering and review of studies; arranging urgent treatment with development of a management plan; evaluation of patient's response to treatment; frequent reassessment; and discussions with other providers. It was exclusive of separately billable procedures and treating other patients and teaching time. Please see Assessment and Plan section and the rest of the note for further information on patient assessment and treatment Subjective Date/time seen: 08/27/22 10:46 Interval history: Reason for consult: Peritonitis, acute respiratory failure, CVA, end-stage renal disease on peritoneal dialysis, 08/27/2022: Patient is being seen for hospitalist group Patient is ON COMFORT MEASURES -currently in no distress, receiving morphine and Ativan to maintain adequate comfort Review of Systems Review of Systems: ROS unobtainable: Yes unobtainable due to endotracheal tube, unobtainable due to medical condition and unobtainable due to mental status Exam Narrative: Limited exam, currently in no distress, on comfort measures Lungs: Slight tachypnea Cardiac: Tachycardia Objective Data Vital Signs Vital Signs: Vital Signs - 24 hr 08/26/22 10:58 08/26/22 12:00 08/26/22 12:00 Temperature Pulse Rate 102 H 106 H Respiratory Rate Blood Pressure Pulse Oximetry 99 Oxygen Delivery Mechanical Ventilation Mechanical Ventilation Fraction of Inspired Oxygen 30 30 08/26/22 12:00 08/26/22 12:00 08/26/22 13:39 Temperature 99.7 F H Pulse Rate 105 H 102 H Respiratory Rate 27 H Blood Pressure 157/86 H Pulse Oximetry 99 Oxygen Delivery Fraction of Inspired Oxygen 30 08/26/22 14:00 08/26/22 14:13 08/26/22 16:00 Temperature 99.5 F Pulse Rate 98 100 Respiratory Rate 28 H Blo
--- NOTE | 2022-08-27 23:06 | PC.NURSE ---
2143 Patient . Time of called by 2 RNs and family notified. IVs, rodriguez catheter and FMS removed. Body taken to [facility] [place].
--- NOTE | 2022-08-29 11:15 | P.DN_ITS ---
Discharge Summary Date and Time Date of : 08/27/22 Time of : 21:44 Provider Pronounced By: rhona tavarez Probable Cause of Probable Cause of : Patient was made comfort measures Summary Hospital Course: Patient was admitted on 08/15/2022 for peritonitis, acute respiratory failure, CVA, end-stage renal disease on peritoneal dialysis. Initially admitted with abdominal pain for 1 week, was found to have severe sepsis with elevated lactic acid and leukocytosis, patient was started on intraperitoneal ceftazidime and IV vancomycin. Paracentesis did revealed peritonitis and peritoneal fluid cultures were growing Gram-positive cocci. In did show old lacunar infarct, right caudate nucleus infarct and no intracranial bleeding. A MRI on 08/15/2022 showed scattered small acute infarcts bilateral frontal and parietal lobes, loss of normal flow voids noted to left carotid artery suggesting slow flow or thrombus noted. 08/15/2022 carotid Doppler showed complete occlusion/thrombosis of left internal carotid artery, less than 50% stenosis of right internal carotid artery, suggestion of either slow flow potentially occlusion of the right vertebral artery. On 08/16/2022 a rapid response was called for respiratory distress and patient was intubated. Given patient not being weaned off the ventilator, multiple strokes and flaccidity in right upper extremity and weakness and right lower extremity, along with pneumonia, end-stage renal disease on peritoneal dialysis the family decided to withdraw support and make him comfort measures on 08/27/2022 as that would have been his wishes. Comfort measures orders were entered in the chart, patient was extubated and placed on p.r.n. morphine and Ativan. Patient on 08/27/2022 at 9:44 p.m. Additional Data Confirmation of as documented by pronouncing clinician: Pupillary Reflex, Palpable Pulses, Response to Stimuli, Heart Tones and Breath Sounds Name of Provider Notified: heber taylor Time Provider Notified: 21:58 Provider Requests Autopsy: No Family Requests Autopsy: No Community Support Associate Notified: Yes Date [facility] Notified of : 08/27/22 Time [facility] Notified of : 21:59
== END 2022-08-27 21:44 | disposition expired | DRG 870 ==
LOC: ANHED 13:49 → ANHIMU 13:50 → ANHICU 08-16 01:30
PROVIDERS: Internal Medicine; Internal Medicine Nephrology; Nurse Practitioner; Nurse Practitioner Family; Admitting Provider Family Medicine; Emergency Provider Emergency Medicine; Visit Provider Student in an Organized Health Care Education/Training Program
PROC: B24BZZ4 Ultrasonography of Heart with Aorta, Transesophageal (ICD-10-PCS; CPT 93312; principal; 2022-08-20 09:30)
DX: A41.9 Sepsis, unspecified organism (principal); K65.9 Peritonitis, unspecified; N18.6 End stage renal disease; J96.01 Acute respiratory failure with hypoxia; I63.032 Cerebral infarction due to thrombosis of left carotid artery; R65.21 Severe sepsis with septic shock; I12.0 Hypertensive chronic kidney disease with stage 5 chronic kidney disease or end stage renal disease; G81.01 Flaccid hemiplegia affecting right dominant side; K56.0 Paralytic ileus; Z51.5 Encounter for palliative care; R74.8 Abnormal levels of other serum enzymes; Z99.2 Dependence on renal dialysis; D63.1 Anemia in chronic kidney disease; Z71.6 Tobacco abuse counseling; F17.210 Nicotine dependence, cigarettes, uncomplicated; J44.9 Chronic obstructive pulmonary disease, unspecified; R41.82 Altered mental status, unspecified; Z20.822 Contact with and (suspected) exposure to COVID-19; Z82.49 Family history of ischemic heart disease and other diseases of the circulatory system; Z79.82 Long term (current) use of aspirin; Z79.899 Other long term (current) drug therapy; Z66 Do not resuscitate; B95.7 Other staphylococcus as the cause of diseases classified elsewhere
CPT/HCPCS: 36415; 36600; 70450; 70486; 70490; 70496; 70498; 70551; 71045; 71046; 71250; 72125; 74018; 74176; 74177; 76705; 80048; 80053; 80061; 80069; 80202; 81001; 82042; 82150; 82375; 82805; 82945; 82948; 83036; 83050; 83605; 83615; 83690; 83735; 84100; 84132; 84157; 84443; 84484; 85025; 85027; 85610; 85730; 87040; 87070; 87075; 87077; 87086; 87186; 87205; 87493; 88104; 88108; 88305; 89051; 90945; 93005; 93306; 93312; 93320; 93325; 93880; 94002; 94003; 94640; 96365; 96366; 96367; 96375; 96376; 99285; A9270; C1751; C9113; G0378; J0131; J0360; J0692; J0713; J1644; J1815; J1940; J1956; J2060; J2248; J2250; J2270; J2405; J2543; J2765; J3010; J3370; J3475; J3480; J7030; J7040; J7120; P9047; Q5105; Q9967; U0003; U0005